=== PATIENT | female | born 1965 | race Caucasian/White ===

== ENCOUNTER → 2016-02-26 | Outpatient (REF) | payer OTHER ==
[~2016-02-26] MED LIST: /WARF25TA OR; ACET65TA OR; AMBI10TA PO; ASPI81TA83 PO; ATOR40TA PO; CALC500T49 OR; EFFE150C PO; GLUC850T PO; HYDR25TA6 PO; KLON0.5T PO; LISI20TA5 PO; MECL25CH PO; MELOPOW; PERC5TAB8 OR; PERC7.5T8 PO; SIMV40TA2 PO; TRAZ100T4 PO; VITAMIN D50000 UNT OR; Vicodin 5/500 PO; ZETI10TA PO
[2016-02-26 19:48] LABS: BASO % 0.3 % (0.0-1.0); EOS # 0.1 K/mm3 (0.0-0.50); EOS % 1.1 % (0.0-3.0); LARGE UNSTAINED CELL # 0.2 K/mm3 (0.0-0.4); LARGE UNSTAINED CELL % 1.7 % (0.0-4.0); LYMPH # 1.7 K/mm3 (1.5-4.5); LYMPH % 12.9 % (24.0-44.0); MEAN CORPUSCULAR HEMOGLOBIN 29.3 pg (27.0-33.0); MEAN CORPUSCULAR HGB CONC 31.8 g/dl (32.0-36.5); MONO # 0.7 K/mm3 (0.0-0.8); MONO % 5.5 % (0.0-5.0); NEUTROPHILS # 10.3 K/mm3 (1.8-7.7); NEUTROPHILS % 78.6 % (36.0-66.0); PLATELET COUNT, AUTOMATED 422 k/mm3 (150-450); RED CELL DISTRIBUTION WIDTH 14.3 % (11.5-14.5); WHITE BLOOD COUNT 13.1 K/mm3 (4.0-10.0)
[2016-02-26 20:09] LABS: ANION GAP 9 MEQ/L (8-16); BLOOD UREA NITROGEN 24 MG/DL (7-18); CARBON DIOXIDE LEVEL 30 MEQ/L (21-32); CHLORIDE LEVEL 106 MEQ/L (98-107); CREATININE FOR GFR 0.81 MG/DL (0.55-1.02); GLOMERULAR FILTRATION RATE > 60.0 (>51); GLUCOSE, FASTING 90 MG/DL (70-105); POTASSIUM SERUM 4.4 MEQ/L (3.5-5.1); SODIUM LEVEL 145 MEQ/L (136-145)
== END | disposition home or self-care (01) ==
LOC: M SFHCADAM 13:28
PROVIDERS: ATTEND Physician Assistant Medical
DX: R93.8 Abnormal findings on diagnostic imaging of other specified body structures (principal)

== ENCOUNTER → 2016-03-19 | Outpatient (CLI) | payer OTHER ==
[~2016-03-19] MED LIST changes: +ISOVUE-370 76% 100ML VIAL (Q9967) As Ordered ONE
--- NOTE | 2016-03-20 04:40 | REP ---
Clinical: Abnormal opacity on recent chest x-ray. Comparison: Chest x-ray dated 02/14/2016. Technique: Axial contrast enhanced images from the thoracic inlet to the upper abdomen using 100 ml Isovue 370 intravenous contrast material with coronal and sagittal re-formations. Findings: The lung mark are essentially well-aerated and symmetric. The abnormality identified in the left lower lobe on recent chest x-ray conforms to a subtle irregular area of opacity with subtle linear extensions in the lingula measures roughly 2 cm maximal diameter and most likely represents a small area of focal chronic scarring. However active process cannot definitively be excluded. Mild chronic interstitial changes noted bilaterally without further consolidation, nodule or mass lesion. No pleural effusion/reaction or pneumothorax. Tracheobronchial tree is patent. No mediastinal, hilar, or axillary adenopathy. Heart/pericardium and thoracic aorta are relatively normal. Mild atherosclerotic changes to the coronary arteries identified. Surrounding musculoskeletal structures demonstrate age-related changes. Limited evaluation of the upper abdomen demonstrates normal bilateral adrenal glands along with suspected right parapelvic cysts and cholelithiasis. Impression: 1. Subtle area of opacity in the lingula conforming to the abnormality on recent chest x-ray likely represents focal scarring. However active process cannot definitively be excluded and 3-month initial followup examination may be warranted. 2. Cholelithiasis. Signed by Wesley Prescott MD 03/20/2016 04:31 A
== END ==
LOC: M RAD 15:34
PROVIDERS: ATTEND Physician Assistant Medical
DX: R93.8 Abnormal findings on diagnostic imaging of other specified body structures (principal)

== ENCOUNTER → 2016-05-31 | Outpatient (REF) | payer OTHER ==
[~2016-05-31] MED LIST changes: -ISOVUE-370 76% 100ML VIAL (Q9967) As Ordered ONE
[2016-05-31 13:54] LABS: ALBUMIN 3.4 GM/DL (3.2-5.2); ALBUMIN/GLOBULIN RATIO 1.13 (1.00-1.93); ALKALINE PHOSPHATASE 100 U/L (45-117); ALT/SGPT 33 U/L (12-78); ANION GAP 7 MEQ/L (8-16); AST/SGOT 14 U/L (15-37); BASO % 0.3 % (0.0-1.0); BILIRUBIN,TOTAL 0.3 MG/DL (0.2-1.0); BLOOD UREA NITROGEN 17 MG/DL (7-18); CALCIUM LEVEL 9.1 MG/DL (8.5-10.1); CARBON DIOXIDE LEVEL 30 MEQ/L (21-32); CHLORIDE LEVEL 106 MEQ/L (98-107); CHOLESTEROL LEVEL 226 MG/DL (<200); CREATININE FOR GFR 0.64 MG/DL (0.55-1.02); EOS # 0.2 K/mm3 (0.0-0.50); EOS % 1.6 % (0.0-3.0); GLOMERULAR FILTRATION RATE > 60.0 (>51); GLUCOSE, FASTING 90 MG/DL (70-105); LARGE UNSTAINED CELL # 0.1 K/mm3 (0.0-0.4); LARGE UNSTAINED CELL % 1.1 % (0.0-4.0); LYMPH # 1.5 K/mm3 (1.5-4.5); LYMPH % 13.9 % (24.0-44.0); MEAN CORPUSCULAR HEMOGLOBIN 28.4 pg (27.0-33.0); MEAN CORPUSCULAR HGB CONC 31.4 g/dl (32.0-36.5); MEAN CORPUSCULAR VOLUME 90.5 fl (80.0-96.0); MONO # 0.6 K/mm3 (0.0-0.8); MONO % 5.3 % (0.0-5.0); NEUTROPHILS # 8.3 K/mm3 (1.8-7.7); NEUTROPHILS % 77.8 % (36.0-66.0); PLATELET COUNT, AUTOMATED 345 k/mm3 (150-450); POTASSIUM SERUM 4.6 MEQ/L (3.5-5.1); RED CELL DISTRIBUTION WIDTH 14.9 % (11.5-14.5); SODIUM LEVEL 143 MEQ/L (136-145); TOTAL PROTEIN 6.4 GM/DL (6.4-8.2); TRIGLYCERIDES LEVEL 233 MG/DL (<150); WHITE BLOOD COUNT 10.6 K/mm3 (4.0-10.0)
== END ==
LOC: M SFHCADAM 09:19
PROVIDERS: ATTEND Physician Assistant Medical
DX: E78.4 Other hyperlipidemia (principal); E11.9 Type 2 diabetes mellitus without complications; F32.9 Major depressive disorder, single episode, unspecified; E55.9 Vitamin D deficiency, unspecified

== ENCOUNTER → 2016-09-05 | Outpatient (REF) | payer OTHER ==
[~2016-09-05] MED LIST changes: +ASPI1TAB15 PO; -ATOR40TA PO; +ATOR40TA75 PO; +ATOR80TA59 PO; +GABA-282 PO; +HYDR-3719 PO; +HYDR12.55 PO; +HYDR12CA PO; +LISI-538 PO; +MECL1CHW2 PO; -MECL25CH PO; +METF500T13 PO; +RANI150T PO; +SERT-138 PO; +TRAZ-136 PO; -TRAZ100T4 PO; +TRAZ10TA PO; +TRAZ1TAB14 PO; +VENL75CA2 PO
[2016-09-05 14:32] LABS: INR 1.04
== END ==
LOC: M LABDRAW1 13:20
PROVIDERS: ATTEND Physical Medicine & Rehabilitation
DX: Z01.812 Encounter for preprocedural laboratory examination (principal)

== ENCOUNTER 2016-11-01 22:00 | Inpatient (IN) | payer OTHER ==
[~2016-11-01] VITALS: Ht 152.4 cm; Wt 88.6 kg
[~2016-11-01 22:00] MED LIST changes: -HYDR-3719 PO; -HYDR12.55 PO; -TRAZ10TA PO; -VENL75CA2 PO
[2016-11-01 22:52] LABS: MEAN CORPUSCULAR HEMOGLOBIN 30.1 pg (27.0-33.0); MEAN CORPUSCULAR HGB CONC 33.5 g/dl (32.0-36.5); RED CELL DISTRIBUTION WIDTH 15.4 % (11.5-14.5); WHITE BLOOD COUNT 10.2 K/mm3 (4.0-10.0)
[2016-11-01] MEDS ORDERED: HYDR-3719 PO (23:00)
[2016-11-01 23:19] LABS: METHADONE URINE NEGATIVE (NEGATIVE)
[2016-11-01 23:22] LABS: ALBUMIN 3.5 GM/DL (3.2-5.2); ALBUMIN/GLOBULIN RATIO 1.06 (1.00-1.93); ALKALINE PHOSPHATASE 96 U/L (45-117); ALT/SGPT 43 U/L (12-78); ANION GAP 9 MEQ/L (8-16); AST/SGOT 17 U/L (15-37); BILIRUBIN,DIRECT 0.1 MG/DL (0.0-0.2); BILIRUBIN,TOTAL 0.4 MG/DL (0.2-1.0); BLOOD UREA NITROGEN 20 MG/DL (7-18); CALCIUM LEVEL 9.6 MG/DL (8.5-10.1); CARBON DIOXIDE LEVEL 26 MEQ/L (21-32); CHLORIDE LEVEL 109 MEQ/L (98-107); CREATININE FOR GFR 0.77 MG/DL (0.55-1.02); GLOMERULAR FILTRATION RATE > 60.0 (>51); GLUCOSE, FASTING 111 MG/DL (70-105); SODIUM LEVEL 144 MEQ/L (136-145); TOTAL PROTEIN 6.8 GM/DL (6.4-8.2)
[2016-11-02 04:04] VITALS: BP 130/86
[2016-11-02] MEDS ORDERED: HYDR12.55 PO (04:31)
[2016-11-02] MEDS ORDERED: ANEXSIA, NORCO 7.5MG/325MG TABLET(HYDROCODONE/APAP) PO PRN (06:00)
[2016-11-02] MEDS ORDERED: MOM 30ML SUSPENSION UDC PO PRN (06:00)
[2016-11-02] MEDS ORDERED: MAALOX 30 ML SUSP *UDC PO PRN (06:00)
[2016-11-02] MEDS: LISINOPRIL 20 MG TAB PO SCH (08:47)
[2016-11-02] MEDS: hydroCHLOROthiazide 12.5 MG CAPSULE PO SCH (08:47)
[2016-11-02] MEDS: metFORMIN (GLUCOPHAGE) 500 MG TAB PO SCH ×2 (08:47→17:05)
[2016-11-02] MEDS: GABAPENTIN 300 MG CAP PO SCH ×3 (08:47→20:49)
[2016-11-02] MEDS: ASPIRIN 81 MG ENTERIC TAB PO SCH (08:47)
[2016-11-02] MEDS: raNITIdine SYRUP 150 MG/10 ML UDC GT SCH ×2 (08:50→20:48)
[2016-11-02 18:00] VITALS: BP 141/85
--- NOTE | 2016-11-02 20:02 | MHHPE ---
DATE OF ADMISSION: 11/02/2016 CHIEF COMPLAINT: Feels depressed. SUBJECTIVE: She is 51 years old. She is single and lives on her own. Sayrosita has a long history of depression and anxiety, used to see Dr. Cotton for several years, stopped seeing him when she lost her job a couple of years ago, and since then had seen a therapist, Gracy Steve, has not seen her for a month, was seeing her every week, sees primary care, who prescribes her medicine, mostly to help with her depression. She is on Zoloft 200 mg at night. She is also on clonazepam at 0.5 mg twice a day as needed for anxiety. Sayrosita was on Zoloft in the past, several years ago, and then switched to Effexor, which she felt was effective for a few years, lost efficacy, and then reverted to Zoloft again. Sayrosita was on 100 mg and she raised it herself several months ago as she was feeling increasingly depressed, says her primary care agreed with it. She says has had several years of struggling with depression and anxiety, and that matters worsened after she lost her job a couple of years ago, has been feeling increasingly depressed more late, and has felt lonely. Says her zfpjea-vl-izt has been helpful, is aware of her concerns. She was talking to her shake table operator as well on a regular basis and yesterday the shake table operator became more concerned and worried when he had called, the patient did not apparently take his call. He called the ytseht-kr-por, the tqdohi-as-hwc went to check on the patient and found her crying. She was apparently curled up on the floor of her home, indicating she was "done," and suggesting that she was suicidal. Police were contacted. She informed them as well that she was suicidal, though currently denies it. She was quite tearful and indicated has had increasing difficulties. In addition to this, has stated that if it was not for her sikhism beliefs would have killed herself. Says one of the ways she had thought of doing that was running her car in a closed garage. She says that she has been feeling increasingly lonely and that has been a burden. Says her son used to live with her, he got and he moved out earlier this year. They do not get along well, though she sees his daughter, her granddaughter when the granddaughter visits every other weekend. The son is going through a custody ge with the daughter's mother. This tends to bother the patient as well. Says does not get along with her mother, the patient's own mother, who is local, and by the sounds of it the patient suggests that she is quite judgmental and wound consider the patient being in the hospital a failure. She had lost her job of 23 years a couple of years ago. 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 Since then says misses the cook who was there, who she was friends with and has periodic contact. In addition to this had to put her cat down after 16 years of so within the last year. Says spoke with Ms. Steve earlier in the week, and that she was to set up an appointment over the phone with her. PAST PSYCHIATRIC HISTORY: As indicated above. Denies any inpatient hospitalizations or suicide attempts. Had been seeing Dr. Cotton for several years, says stopped seeing him when she lost her job. Has been seeing her primary care. Has been on Zoloft 200 mg for the last several months, Zoloft for the last couple of years or so. Has used Effexor with good effect in the past and then it lost its efficacy. SUBSTANCE HISTORY: Denies any. MEDICAL HISTORY: Has back pain, says has applied for disability on that basis. It has given her considerable difficulties. Also has a history of hypertension. Has high cholesterol as well. SOCIAL HISTORY: Lives on her own. Has a son. Used to work for a long time and then lost her job, as stated previously. Has supports, but is quite concerned about family and judgment by the family, particularly her mother, whom she says would consider her a failure being depressed and in here. Says trusts her gcofws-cq-eem. She also indicates she got along quite well with her ex sginsren-hu-zuz and missed her when the son and the tvfzodoa-mm-oub were . Says the qkbldndr-qh-cni contacted her this summer, was depressed, had been drinking, had a gun with her and was suicidal. The patient intervened and the gloeiwlx-td-ojm was admitted to the hospital. The patient says that the vuqxyimy-uy-ruy was upset with her for the intervention. The patient does not regret it. No symptoms consistent with hypomania, roosevelt, or psychosis. MENTAL STATUS EXAMINATION: She is fairly neat, is in hospital clothes. She displays fair to good eye contact. No abnormal movements noted. No agitation. No psychomotor retardation. Mood is depressed. She is quite tearful at times. She denies any active suicidal thoughts or intents. No homicidal ideas of intents. No evidence of any psychosis. Intellect is average. No fluctuation of consciousness. Cognition is grossly intact. Judgment and insight are compromised. ASSESSMENT: 1. Major depressive disorder, recurrent and severe, without psychotic features. 2. Rule out major depressive disorder, single episode, severe without psychotic features. 3. Unspecified anxiety disorder. 4. Loss of job, financial difficulties. 5. Difficult relationship with mother and son. 6. Sense of being lonely. 7. Back pain. 8. Loss of job at a college. She is significantly depressed and very likely minimizes it. Has been suicidal, now denies that. Has several psychosocial stressors, has also suffered several losses. Her functioning has deteriorated and this has compromised her ability to maintain her safety. PLAN: She is admitted to the inpatient psychiatric unit, placed on relevant precautions. We will look at obtaining collateral information. She is hesitant in us talking to family members, but says will consider that we talk with her nmbcbu-bb-xgo. She will receive a medicine consultation if indicated. She will be encouraged to participate in activities on the unit. I would suggest continuing Zoloft at 200 mg daily for now, but that it is either augmented or that Zoloft is replaced by another antidepressant, Effexor being an option since she has tolerated it well and that it helped her in the past. The patient has given written request for discharge. We will address this and I have informed her that at this point I would suggest that she is hospitalized and it may entail us going to court to retain her. I am concerned enough, given her struggles with depression, its intensity, the several losses she has had, the sense of hopelessness and worthlessness, as well as guilt and recent suicidal thoughts, all pointing to the necessity of her being in the hospital to maintain her safety. The procedure regarding addressing her request is also discussed and staff will assist her with that. The patient, I would anticipate, is to stay here for the next 5 to 7 days. She is aware that collateral information will be useful in obtaining a more complete picture. VITAL SIGNS: Blood pressure 141/85, pulse 116, temperature 98.7. INVESTIGATIONS: Complete blood count essentially within normal limits except for a slight rise in white blood cells at 10.2. Metabolic profile essentially within normal limits, TSH is 0.326, which is slightly below normal. Urine toxicology essentially is negative. The assessment took 60 minutes.
[2016-11-02] MEDS: traZODone 50 MG TAB PO PRN (20:49)
[2016-11-02] MEDS: SERTRALINE 100 MG TAB PO SCH (20:49)
[2016-11-02] MEDS: ATORVASTATIN 20 MG TAB PO SCH (20:49)
[2016-11-03 06:44] VITALS: BP 119/61
[2016-11-03] MEDS: metFORMIN (GLUCOPHAGE) 500 MG TAB PO SCH ×2 (07:35→17:01)
[2016-11-03] MEDS: GABAPENTIN 300 MG CAP PO SCH ×3 (07:35→20:29)
[2016-11-03] MEDS: hydroCHLOROthiazide 12.5 MG CAPSULE PO SCH (07:35)
[2016-11-03] MEDS: ASPIRIN 81 MG ENTERIC TAB PO SCH (07:35)
[2016-11-03] MEDS: LISINOPRIL 20 MG TAB PO SCH (07:36)
[2016-11-03] MEDS: raNITIdine SYRUP 150 MG/10 ML UDC GT SCH ×2 (07:36→20:29)
[2016-11-03 12:00] VITALS: BP 131/84
[2016-11-03] MEDS: VENLAFAXINE **XR** 37.5 MG CAPSULE PO SCH (15:38)
--- NOTE | 2016-11-03 17:16 | MHIPN ---
DATE: 11/03/2016 CHIEF COMPLAINT: Says feels a bit better. SUBJECTIVE: Seen for followup. Indicates feels depressed, anxious, but somewhat less intense than she did yesterday. Suggests yesterday was difficult, but she acknowledges that she has been having considerable difficulties, says spoke with her sister as well, plans to contact her ebbprh-ry-yvw later. Says remains concerned about how her family will social service manager her, but less so. Has also spoken with her therapist, Ms. Chandler, who is not fully available at present, due to various matters. The patient says she slept reasonably well, and in fact, suggests has felt better since she has not been using hydrocodone, which she has in the past on a regular basis. Says has not used any Klonopin, has used it only as needed occasionally. Says her "head feels clearer" and that she feels less in pain overall. MENTAL STATUS EXAMINATION: She is neat, she is cooperative. There is no agitation, no psychomotor retardation. Mood depressed. Affect is restricted but reactive, broader than yesterday. Denies active thoughts of harming herself. No homicidal ideas or intents. No evidence of any psychosis. Her cognition is grossly intact. Judgment and insight remain compromised, but somewhat improved. ASSESSMENT: Major depressive disorder, recurrent, severe. Feels depressed, minimizes it, but more amenable to discussion regarding her depression, and the difficulties she has been through. PLAN: Various options are discussed, and would suggest cross-tapering Effexor with the Zoloft. She started on Effexor XR at 37.5 mg daily; this is to be titrated upward, and then the Zoloft decreased and eliminated slowly. The rationale for doing so is discussed, as were the drawbacks. It is encouraging she is more aware of her difficulties. Says sister in law plans to visit later today, and I would suggest that staff talk with her to obtain collateral information. We reiterated the request that she has made for discharge. She says she would consider rescinding it. She will be seeing the treatment team, the assigned psychiatrist tomorrow, and the discharge planners as well. She agrees with the plan. She is to be encouraged to participate in activities in the unit. VITAL SIGNS: Blood pressure 119.61, pulse 71, temperature 97.7. I would not suggest resuming narcotic pain medication. MTDD
[2016-11-03 18:00] VITALS: BP 116/64
[2016-11-03] MEDS: SERTRALINE 100 MG TAB PO SCH (20:29)
[2016-11-03] MEDS: ATORVASTATIN 20 MG TAB PO SCH (20:29)
[2016-11-03] MEDS: traZODone 50 MG TAB PO PRN (20:29)
--- NOTE | 2016-11-04 03:39 | HPE ---
DATE OF ADMISSION: 11/02/2016 PRIMARY CARE PROVIDER: Javi Collins [facility]. HISTORY OF PRESENT ILLNESS: Please refer to psychiatric history and evaluation for further details on this admission. This examination and history is intended for medical issues, which may need treatment, followup or consult on this 51-year-old female. ALLERGIES: SULFA and CODEINE. SOCIAL HISTORY: She lives alone. She does not drink alcohol. She does not smoke cigarettes. She does not use recreational drugs. PAST MEDICAL HISTORY: 1. Hypertension. 2. Hypercholesterolemia. 3. Depression. 4. Arthritis. 5. Non-insulin dependent diabetes type 2. PAST SURGICAL HISTORY: 1. (C) section. 2. Surgery abscessed tooth. 3. Total left hip replacement. 4. Left lumpectomy for cancer with radiation. FAMILY HISTORY: Paternal grandmother had cancer. Maternal grandfather had lung cancer. Maternal grandmother of aneurysm. LABORATORY STUDIES: WBC 10.2, hemoglobin 14.8, hematocrit 44.3, platelets 305. Sodium 144, potassium 4.0, chloride 109, CO2 26, BUN and creatinine 20 and 0.77. TSH was slightly low at 0.326. Thyroid profile has been ordered. Toxicology screen was negative. HOME MEDICATIONS: - aspirin 81 mg by mouth daily - atorvastatin 80 mg by mouth nightly - gabapentin 300 mg by mouth three times a day - hydrochlorothiazide 12.5 mg by mouth daily - lisinopril 20 mg by mouth daily - metformin 500 mg by mouth twice a day with meals - ranitidine 150 mg by mouth twice a day - sertraline 200 mg by mouth nightly - trazodone 150 mg by mouth nightly as needed for sleep - hydrocodone 10/325 one by mouth every 4 hours as needed for pain, maximum daily dose six REVIEW OF SYSTEMS: 10-system review was done, other than chronic pain, she had no current acute complaints. She has chronic disability and has applied for disability on that basis. PHYSICAL EXAMINATION: 51-year-old obese female in no acute distress. Height 60 inches, weight 88.63 kg, body mass index (BMI) 38.2. Blood pressure 116/64, pulse 75, respirations 16, temperature 98.2. Patient is alert and oriented times three. Pupils equal and react to light. Extraocular muscles intact. Cornea and sclerae clear. Conjunctivae were normal. No facial asymmetry. Pharynx, tongue and gums pink and moist. Tongue is midline. Neck is supple without lymphadenopathy. No thyromegaly, no goiter. Carotids 2+ without bruit. Chest clear to auscultation without wheeze or retraction. Heart is regular. Abdomen is benign. Bowel sounds positive. Genitourinary/rectal: Not done. Extremities show equal strength, full range of motion. No cyanosis, clubbing or edema. Peripheral pulses equal and palpable bilaterally. Skin is warm and dry. Cranial nerves III-XII grossly intact. IMPRESSION/PLAN: 1. Psychiatric plan per psychiatry. 2. Hypercholesterolemia. Continue atorvastatin. 3. Hypertension. Continue lisinopril. 4. Slightly low thyroid-stimulating hormone (TSH). Thyroid profile will be drawn in the morning. No other acute medical issues.
[2016-11-04 06:34] VITALS: BP 139/80
[2016-11-04] MEDS: metFORMIN (GLUCOPHAGE) 500 MG TAB PO SCH ×2 (07:15→17:09)
[2016-11-04 07:40] LABS: THYROXINE (T4) 7.4 UG/DL (4.5-12.0)
[2016-11-04] MEDS ORDERED: INFLUENZA QUADRIVALENT PF VACCINE 0.5ML SYRINGE (90686) IM ONE (09:00)
[2016-11-04] MEDS: LISINOPRIL 20 MG TAB PO SCH (09:02)
[2016-11-04] MEDS: ASPIRIN 81 MG ENTERIC TAB PO SCH (09:02)
[2016-11-04] MEDS: VENLAFAXINE **XR** 37.5 MG CAPSULE PO SCH (09:02)
[2016-11-04] MEDS: raNITIdine SYRUP 150 MG/10 ML UDC GT SCH (09:02)
[2016-11-04] MEDS: GABAPENTIN 300 MG CAP PO SCH ×3 (09:02→20:54)
[2016-11-04] MEDS: hydroCHLOROthiazide 12.5 MG CAPSULE PO SCH (09:02)
[2016-11-04] MEDS: ACETAMINOPHEN TAB 650MG DOSE (2X325MG) PO PRN (09:12)
[2016-11-04] MEDS ORDERED: traZODone 100 MG TAB PO PRN (13:00)
[2016-11-04] MEDS ORDERED: VENLAFAXINE **XR** 37.5 MG CAPSULE PO ONE (13:15)
--- NOTE | 2016-11-04 15:05 | IPN ---
DATE: 11/04/2016 Ms. Mccracken met with myself and the staff. She discussed her disappointments with her loss of jobs and her financial situation. She is concerned that she risks losing her home and car and that her cat recently . She had numerous complaints and concerns about her admission on the weekend, but began to be able to joke with us. We discussed her medications, and I have increased her venlafaxine to 75 mg a day. She still continues on Zoloft 200 mg. She states that she is presently not suicidal but there are concerns about her suicidal statements and concerns about her depression not improving resulted in this admission. Eye contact was good. No disturbance of sleep or thought process. She had no loose associations. No abnormal psychotic thoughts. Her judgment and insight were fair. She was fully oriented with a full fund of knowledge. Mood seemed neutral. Affect is was neutral. Plan to increase the patient's venlafaxine and provide whatever social support and referrals that we can make. DIAGNOSIS: Major depressive illness.
[2016-11-04 18:00] VITALS: BP 138/83
[2016-11-04] MEDS: FAMOTIDINE 20 MG TAB PO SCH (20:54)
[2016-11-04] MEDS: SERTRALINE 100 MG TAB PO SCH (20:55)
[2016-11-04] MEDS: ATORVASTATIN 20 MG TAB PO SCH (20:55)
[2016-11-05 06:23] VITALS: BP 134/86
[2016-11-05] MEDS: metFORMIN (GLUCOPHAGE) 500 MG TAB PO SCH ×2 (07:00→17:01)
[2016-11-05] MEDS: LISINOPRIL 20 MG TAB PO SCH (08:29)
[2016-11-05] MEDS: GABAPENTIN 300 MG CAP PO SCH ×3 (08:29→21:04)
[2016-11-05] MEDS: ACETAMINOPHEN TAB 650MG DOSE (2X325MG) PO PRN (08:30)
[2016-11-05] MEDS: ASPIRIN 81 MG ENTERIC TAB PO SCH (08:30)
[2016-11-05] MEDS: FAMOTIDINE 20 MG TAB PO SCH ×2 (08:30→21:04)
[2016-11-05] MEDS: hydroCHLOROthiazide 12.5 MG CAPSULE PO SCH (08:30)
[2016-11-05] MEDS ORDERED: VENLAFAXINE **XR** 75MG CAPSULE PO SCH (09:00)
--- NOTE | 2016-11-05 09:47 | MHIPN ---
DATE: 11/05/2016 I met with Ms Mccracken this morning. She is ambivalent because she wants to go home to her hindu activities, etc. She seems to not be concerned about her financial situation, however, she is agreeing to Dr. Carter's plan to wean her off of Zoloft and increase her Effexor. Today, I will decrease her Zoloft to 100 mg and increase her Effexor to 150. In addition, the patient complains of poor sleep regardless of the higher dose of trazodone that she has been on in the past of 150 mL. I am changing it to Remeron 15 mm salt tablet at night and discontinuing her trazodone. MENTAL STATUS EXAMINATION: Patient's mood is labile and she is ambivalent about her choices of being discharged or staying. She continues to complain that the mental health unit is not helpful to her. No disturbances of speech. Though process is normal. No loose associations. No psychotic thoughts. Judgment and insight are considered poor. Orientation is full in three spheres. No difficulties or recent or remote memory. Affect is pleasant. Fund of knowledge is normal. Language is normal. IMPRESSION: Major depressive illness. DISCHARGE PLAN: As per social work.
[2016-11-05 18:00] VITALS: BP 122/78
[2016-11-05] MEDS ORDERED: SERTRALINE 100 MG TAB PO SCH (21:00)
[2016-11-05] MEDS: MIRTAZAPINE 15 MG ***SOLTAB PO SCH (21:04)
[2016-11-05] MEDS: ATORVASTATIN 20 MG TAB PO SCH (21:04)
[2016-11-06 06:53] VITALS: BP 122/70
[2016-11-06] MEDS: VENLAFAXINE **XR** 75MG CAPSULE PO SCH (08:24)
[2016-11-06] MEDS: GABAPENTIN 300 MG CAP PO SCH ×3 (08:24→20:32)
[2016-11-06] MEDS: hydroCHLOROthiazide 12.5 MG CAPSULE PO SCH (08:24)
[2016-11-06] MEDS: ASPIRIN 81 MG ENTERIC TAB PO SCH (08:24)
[2016-11-06] MEDS: FAMOTIDINE 20 MG TAB PO SCH ×2 (08:24→20:32)
[2016-11-06] MEDS: LISINOPRIL 20 MG TAB PO SCH (08:25)
[2016-11-06] MEDS: metFORMIN (GLUCOPHAGE) 500 MG TAB PO SCH ×2 (08:25→17:13)
[2016-11-06] MEDS: ACETAMINOPHEN TAB 650MG DOSE (2X325MG) PO PRN (08:28)
--- NOTE | 2016-11-06 15:16 | MHIPN ---
DATE: 11/06/2016 Ms. Mccracken is feeling improved. She states her Remeron which was tried for sleep did not seem to work any significantly better than her previous medication, but she was willing to continue trying it. She had no difficulty with the alteration of the increase of Effexor and the decrease in Zoloft. She will be reduced to Zoloft 50 mg daily with her Effexor at 150 mg daily. 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 She is going to work on her housing and disability. MENTAL STATUS EXAMINATION: Speech normal. Thought process is normal. Mood is less labile. There is no loose associations. No abnormal psychotic thoughts. Judgment and insight are good. The patient is fully oriented. No disturbance of recent and remote memory. No disturbance of attention and concentration. No disturbance of language. She has a full fund of knowledge. Affect is pleasant and mood is improved. DIAGNOSIS: Major depressive illness. Numerous financial stressors. Discharge may be planned for Friday.
[2016-11-06 18:28] VITALS: BP 107/58
[2016-11-06] MEDS: MIRTAZAPINE 15 MG ***SOLTAB PO SCH (20:32)
[2016-11-06] MEDS: ATORVASTATIN 20 MG TAB PO SCH (20:33)
[2016-11-06] MEDS ORDERED: SERTRALINE HCL 50 MG TAB PO SCH (21:00)
[2016-11-07 07:05] VITALS: BP 142/79
[2016-11-07] MEDS: hydroCHLOROthiazide 12.5 MG CAPSULE PO SCH (08:09)
[2016-11-07] MEDS: VENLAFAXINE **XR** 75MG CAPSULE PO SCH (08:09)
[2016-11-07] MEDS: LISINOPRIL 20 MG TAB PO SCH (08:09)
[2016-11-07] MEDS: ASPIRIN 81 MG ENTERIC TAB PO SCH (08:09)
[2016-11-07] MEDS: GABAPENTIN 300 MG CAP PO SCH ×3 (08:09→20:46)
[2016-11-07] MEDS: metFORMIN (GLUCOPHAGE) 500 MG TAB PO SCH ×2 (08:09→17:00)
[2016-11-07] MEDS: FAMOTIDINE 20 MG TAB PO SCH ×2 (08:09→20:46)
[2016-11-07] MEDS: ACETAMINOPHEN TAB 650MG DOSE (2X325MG) PO PRN (08:09)
--- NOTE | 2016-11-07 13:52 | MHIPN ---
DATE: 11/07/2016 I met with Ms. Mccracken this morning. We discussed her medications. I have discontinued her Zoloft. She continues on Effexor 150 mg by mouth daily. Outpatient planning is beginning and will be accomplished and the patient will be discharged tomorrow. MENTAL STATUS: Speech is normal. Thought process is normal. No loose associations. No abnormal or psychotic thoughts. Judgment and insight improved. The patient is fully oriented. No disturbance of recent or remote memory. Attention and concentration are adequate. No disturbance of language. Full fund of knowledge. Mood is good. Affect is bright. Discharge diagnosis will be major depression. The patient is presently on Effexor 150 mg by mouth daily. Discharge planned for tomorrow.
[2016-11-07 18:00] VITALS: BP 124/84
[2016-11-07] MEDS: ATORVASTATIN 20 MG TAB PO SCH (20:46)
[2016-11-07] MEDS ORDERED: traZODone 100 MG TAB PO SCH (21:00)
[2016-11-08 06:28] VITALS: BP 103/66
[2016-11-08] MEDS ORDERED: VENL75CA2 PO ×2 (08:08→08:17)
[2016-11-08] MEDS ORDERED: TRAZ10TA PO (08:08)
[2016-11-08] MEDS: hydroCHLOROthiazide 12.5 MG CAPSULE PO SCH (09:24)
[2016-11-08] MEDS: FAMOTIDINE 20 MG TAB PO SCH (09:25)
[2016-11-08] MEDS: VENLAFAXINE **XR** 75MG CAPSULE PO SCH (09:25)
[2016-11-08] MEDS: GABAPENTIN 300 MG CAP PO SCH (09:25)
[2016-11-08] MEDS: ASPIRIN 81 MG ENTERIC TAB PO SCH (09:25)
[2016-11-08] MEDS: metFORMIN (GLUCOPHAGE) 500 MG TAB PO SCH (09:25)
[2016-11-08 09:27] VITALS: BP 136/89
[2016-11-08] MEDS: LISINOPRIL 20 MG TAB PO SCH (09:27)
[2016-11-08] MEDS: ACETAMINOPHEN TAB 650MG DOSE (2X325MG) PO PRN (09:29)
--- NOTE | 2016-11-08 11:14 | DSES ---
DATE OF ADMISSION: 11/02/2016 DATE OF DISCHARGE: 11/08/2016 Tahira Mccracken is 51 years old, single, living on her own. She has a long history of depression and anxiety. She has been seeing Dr. Cotton for several years. She stopped seeing him when she lost her job a couple of years ago and has seen therapist Gracy Chandler who she has not seen for a month. She is presently on Zoloft 200 mg at night, Klonopin 0.5 twice a day for anxiety. She switched to Effexor which she felt was ineffective and reverted back to Zoloft. She was on 100 mg of Zoloft and raised herself several months ago to 200 mg. Patient states she has had several years of struggling with depression and anxiety and it worsened after her losing her job. She was talking to her keno terminal operator on a regular basis but the keno terminal operator became concerned when patient did not call her back and she was found crying. She was also found curled up on the floor stating that she was "done". And suggested she was suicidal. LABORATORY EXAMINATION: CBC was unremarkable. Serum chemistries showed a slightly high BUN of 20 and a slightly low TSH which normalized from 0.326 to 0.402. Toxicology screen was positive for alcohol at 0.003. Patient was admitted by Dr. Carter and seen by Alie Vidal, nurse practitioner with a past medical history noted of hypertension, hypercholesterolemia and arthritis. Past surgical history of section, abscess tooth, total left hip replacement and a left lumpectomy for cancer with radiation. HOME MEDICATIONS: Include: - aspirin 81 mg - atorvastatin 80 mg by mouth - gabapentin 300 mg three times a day - hydrochlorothiazide 12.5 mg - lisinopril 20 mg - metformin 500 mg twice a day - ranitidine 150 mg twice a day No other acute medical issues were noted. COURSE ON THE UNIT: Patient was changed to Effexor with a higher dose than patient had previously taken. Zoloft was lowered and discontinued. Patient's mood improved and followup plans were made. DISCHARGE MENTAL STATUS: Speech was normal. No disturbance of thought process. No loose associations. No psychotic thoughts. Judgment and insight improved. Fully oriented. Recent and remote memory intact. Attention and concentration were good. Language was normal with full fund of knowledge. Mood was good. Affect was bright. Patient was discharged to followup care as per discharge planning. Patient denies suicidal ideation repetitively. DISCHARGE DIAGNOSIS: Major depressive illness. Numerous stressors. NICOLAS
== END 2016-11-08 12:30 | disposition home or self-care (01) | DRG 754 ==
LOC: M ED 22:00 → M ED INP 11-02 03:18 → M PSY 11-02 04:06
PROVIDERS: ADMIT Psychiatry & Neurology Psychiatry; ATTEND Psychiatry & Neurology Child & Adolescent Psychiatry
DX: F32.9 Major depressive disorder, single episode, unspecified (principal); E11.9 Type 2 diabetes mellitus without complications; I10 Essential (primary) hypertension; E78.00 Pure hypercholesterolemia, unspecified; R94.6 Abnormal results of thyroid function studies; Z79.82 Long term (current) use of aspirin; Z79.84 Long term (current) use of oral hypoglycemic drugs; Z96.642 Presence of left artificial hip joint; Z79.899 Other long term (current) drug therapy

== ENCOUNTER → 2017-01-02 | Outpatient (CLI) | payer OTHER ==
[~2017-01-02] MED LIST changes: +HYDR-3719 PO; +HYDR12.55 PO; +TRAZ10TA PO; +VENL75CA2 PO
[2017-01-02 06:54] LABS: BASO % 0.4 % (0.0-1.0); EOS # 0.2 10^3/uL (0.0-0.50); EOS % 1.6 % (0.0-3.0); LYMPH # 2.2 10^3/uL (1.5-4.5); LYMPH % 20.5 % (24.0-44.0); MEAN CORPUSCULAR HEMOGLOBIN 29.8 pg (27.0-33.0); MEAN CORPUSCULAR VOLUME 92.9 fl (80.0-96.0); MONO # 0.8 10^3/uL (0.0-0.8); MONO % 7.2 % (0.0-5.0); NEUTROPHILS # 7.6 10^3/uL (1.8-7.7); NEUTROPHILS % 69.3 % (36.0-66.0); PLATELET COUNT, AUTOMATED 332 10^3/uL (150-450); RED CELL DISTRIBUTION WIDTH 15.5 % (11.5-14.5)
[2017-01-02 07:13] LABS: ALBUMIN 3.4 GM/DL (3.2-5.2); ALBUMIN/GLOBULIN RATIO 1.06 (1.00-1.93); ALKALINE PHOSPHATASE 96 U/L (45-117); ALT/SGPT 40 U/L (12-78); ANION GAP 8 MEQ/L (8-16); AST/SGOT 15 U/L (7-37); BILIRUBIN,TOTAL 0.4 MG/DL (0.2-1.0); BLOOD UREA NITROGEN 20 MG/DL (7-18); CALCIUM LEVEL 9.2 MG/DL (8.5-10.1); CARBON DIOXIDE LEVEL 27 MEQ/L (21-32); CHLORIDE LEVEL 106 MEQ/L (98-107); CHOLESTEROL LEVEL 206 MG/DL (<200); CREATININE FOR GFR 0.76 MG/DL (0.55-1.02); GLOMERULAR FILTRATION RATE > 60.0 (>51); GLUCOSE, FASTING 99 MG/DL (70-105); POTASSIUM SERUM 4.3 MEQ/L (3.5-5.1); SODIUM LEVEL 141 MEQ/L (136-145); TOTAL PROTEIN 6.6 GM/DL (6.4-8.2); TRIGLYCERIDES LEVEL 220 MG/DL (<150)
== END ==
LOC: M LAB 06:15
PROVIDERS: ATTEND Physician Assistant Medical
DX: E78.4 Other hyperlipidemia (principal); E11.9 Type 2 diabetes mellitus without complications; E55.9 Vitamin D deficiency, unspecified

== ENCOUNTER → 2017-01-06 | Outpatient (REF) | payer OTHER ==
[2017-01-06 13:34] LABS: REASON FOR REVIEW COMPREHENSIVE REVIEW
== END ==
LOC: M SFHCADAM 11:07
PROVIDERS: ATTEND Physician Assistant Medical
DX: D72.829 Elevated white blood cell count, unspecified (principal)

== ENCOUNTER → 2017-04-07 | Outpatient (CLI) | payer OTHER ==
[2017-04-07 13:16] LABS: ALBUMIN 3.4 GM/DL (3.2-5.2); ALKALINE PHOSPHATASE 84 U/L (45-117); ALT/SGPT 48 U/L (12-78); ANION GAP 9 MEQ/L (8-16); AST/SGOT 33 U/L (7-37); BILIRUBIN,TOTAL 0.3 MG/DL (0.2-1.0); BLOOD UREA NITROGEN 25 MG/DL (7-18); CARBON DIOXIDE LEVEL 25 MEQ/L (21-32); CHLORIDE LEVEL 109 MEQ/L (98-107); GLOMERULAR FILTRATION RATE > 60.0 (>51); GLUCOSE, FASTING 93 MG/DL (70-100); SODIUM LEVEL 143 MEQ/L (136-145); TOTAL PROTEIN 6.8 GM/DL (6.4-8.2)
== END ==
LOC: M LAB 11:45
DX: D72.829 Elevated white blood cell count, unspecified (principal)
CPT/HCPCS: 80053

== ENCOUNTER → 2017-04-10 | Outpatient (CLI) | payer OTHER ==
[~2017-04-10] MED LIST changes: -/WARF25TA OR; -ACET65TA OR; -AMBI10TA PO; -ASPI1TAB15 PO; -ASPI81TA83 PO; -ATOR40TA75 PO; -ATOR80TA59 PO; -CALC500T49 OR; -EFFE150C PO; -GABA-282 PO; -GLUC850T PO; -HYDR-3719 PO; -HYDR12.55 PO; -HYDR12CA PO; -HYDR25TA6 PO; +ISOVUE-370 76% 100ML VIAL (Q9967) As Ordered; -KLON0.5T PO; -LISI-538 PO; -LISI20TA5 PO; -MECL1CHW2 PO; -MELOPOW; -METF500T13 PO; -PERC5TAB8 OR; -PERC7.5T8 PO; -RANI150T PO; -SERT-138 PO; -SIMV40TA2 PO; -TRAZ-136 PO; -TRAZ10TA PO; -TRAZ1TAB14 PO; -VENL75CA2 PO; -VITAMIN D50000 UNT OR; -Vicodin 5/500 PO; -ZETI10TA PO
== END ==
LOC: M RAD 16:42
DX: R93.8 Abnormal findings on diagnostic imaging of other specified body structures (principal)
CPT/HCPCS: Q9967

== ENCOUNTER → 2017-06-24 | Outpatient (REF) | payer OTHER ==
[2017-06-24 10:48] LABS: BASO % 0.3 % (0.0-1.0); EOS # 0.1 10^3/uL (0.0-0.50); EOS % 0.7 % (0.0-3.0); HEMATOCRIT 44.7 % (36.0-47.0); HEMOGLOBIN 14.2 g/dl (12.0-15.5); IMMATURE GRANULOCYTE % 1.7 % (0-3.0); LYMPH # 1.7 10^3/uL (1.5-4.5); LYMPH % 16.9 % (24.0-44.0); MEAN CORPUSCULAR HEMOGLOBIN 30.2 pg (27.0-33.0); MEAN CORPUSCULAR HGB CONC 31.8 g/dl (32.0-36.5); MEAN CORPUSCULAR VOLUME 95.1 fl (80.0-96.0); MONO # 0.7 10^3/uL (0.0-0.8); MONO % 7.1 % (0.0-5.0); NEUTROPHILS # 7.5 10^3/uL (1.8-7.7); NEUTROPHILS % 73.3 % (36.0-66.0); PLATELET COUNT, AUTOMATED 303 10^3/uL (150-450); RED CELL DISTRIBUTION WIDTH 15.2 % (11.5-14.5); WHITE BLOOD COUNT 10.2 10^3/uL (4.0-10.0)
[2017-06-24 10:52] LABS: SLIDE REVIEW Report; SOURCE PERIPHERAL SMEAR
[2017-06-24 11:23] LABS: ALBUMIN 3.5 GM/DL (3.2-5.2); ALBUMIN/GLOBULIN RATIO 1.13 (1.00-1.93); ALKALINE PHOSPHATASE 83 U/L (45-117); ALT/SGPT 45 U/L (12-78); ANION GAP 6 MEQ/L (8-16); AST/SGOT 19 U/L (7-37); BILIRUBIN,TOTAL 0.4 MG/DL (0.2-1.0); BLOOD UREA NITROGEN 22 MG/DL (7-18); CALCIUM LEVEL 9.2 MG/DL (8.5-10.1); CARBON DIOXIDE LEVEL 29 MEQ/L (21-32); CHLORIDE LEVEL 109 MEQ/L (98-107); CHOLESTEROL LEVEL 205 MG/DL (<200); CHOLESTEROL RISK RATIO 4.659 (<5); CREATININE FOR GFR 0.72 MG/DL (0.55-1.30); FREE T4 0.87 NG/DL (0.76-1.46); GLOMERULAR FILTRATION RATE > 60.0 (>51); GLUCOSE, FASTING 106 MG/DL (70-100); HDL CHOLESTEROL 44 MG/DL (>40); LDL CHOLESTEROL 106.2 MG/DL (<100); NON-HDL-C 161 MG/DL; POTASSIUM SERUM 4.4 MEQ/L (3.5-5.1); SODIUM LEVEL 144 MEQ/L (136-145); TOTAL PROTEIN 6.6 GM/DL (6.4-8.2); TRIGLYCERIDES LEVEL 274 MG/DL (<150)
[2017-06-24 11:31] LABS: MALB URINE SIEMENS 42.4 MG/L; MAU/CREAT RATIO 30.9 MCG/MG (0.0-30.0)
[2017-06-24 11:36] LABS: TOTAL 25(OH) VITAMIN D 23.8 NG/ML (30.0-100.0)
[2017-06-24 14:47] LABS: ESTIMATED AVERAGE GLUCOSE 137 MG/DL (60-110); HEMOGLOBIN A1c 6.4 %
== END ==
LOC: M LABDRAW1 09:47
DX: E11.9 Type 2 diabetes mellitus without complications (principal); D72.829 Elevated white blood cell count, unspecified; E78.4 Other hyperlipidemia
CPT/HCPCS: 80053

== ENCOUNTER → 2017-06-24 | Outpatient (REF) | payer OTHER | LOC: M LABDRAW1 09:49 | DX: Z51.81 Encounter for therapeutic drug level monitoring (principal); Z79.899 Other long term (current) drug therapy | CPT/HCPCS: 84443 ==

== ENCOUNTER 2017-07-18 14:04 | Emergency (ER) | payer OTHER ==
[2017-07-18 17:07] LABS: BASO # 0.1 10^3/uL (0.0-0.2); BASO % 0.4 % (0.0-1.0); EOS # 0.1 10^3/uL (0.0-0.50); EOS % 0.4 % (0.0-3.0); HEMATOCRIT 46.1 % (36.0-47.0); HEMOGLOBIN 14.9 g/dl (12.0-15.5); IMMATURE GRANULOCYTE % 1.2 % (0-3.0); LYMPH # 1.7 10^3/uL (1.5-4.5); LYMPH % 13.1 % (24.0-44.0); MEAN CORPUSCULAR HEMOGLOBIN 30.8 pg (27.0-33.0); MEAN CORPUSCULAR HGB CONC 32.3 g/dl (32.0-36.5); MEAN CORPUSCULAR VOLUME 95.2 fl (80.0-96.0); MONO # 0.9 10^3/uL (0.0-0.8); MONO % 6.8 % (0.0-5.0); NEUTROPHILS # 10.2 10^3/uL (1.8-7.7); NEUTROPHILS % 78.1 % (36.0-66.0); PLATELET COUNT, AUTOMATED 350 10^3/uL (150-450); RED BLOOD COUNT 4.84 10^6/uL (4.00-5.40); RED CELL DISTRIBUTION WIDTH 15.2 % (11.5-14.5)
[2017-07-18 17:20] LABS: INR 1.02; PROTHROMBIN TIME 13.5 SECONDS (12.4-14.5)
[2017-07-18 17:20] LABS: LACTIC ACID SEPSIS PROTOCOL 1.6 MMOL/L (0.4-2.0)
[2017-07-18 17:21] LABS: ALBUMIN 3.6 GM/DL (3.2-5.2); ALBUMIN/GLOBULIN RATIO 1.03 (1.00-1.93); ALKALINE PHOSPHATASE 103 U/L (45-117); ALT/SGPT 62 U/L (12-78); ANION GAP 5 MEQ/L (8-16); AST/SGOT 25 U/L (7-37); BILIRUBIN,DIRECT < 0.1 MG/DL (0.0-0.2); BILIRUBIN,TOTAL 0.3 MG/DL (0.2-1.0); BLOOD UREA NITROGEN 20 MG/DL (7-18); C REACTIVE PROTEIN QUANTITATIV < 0.30 MG/DL (0.00-0.30); CALCIUM LEVEL 9.2 MG/DL (8.5-10.1); CARBON DIOXIDE LEVEL 28 MEQ/L (21-32); CHLORIDE LEVEL 110 MEQ/L (98-107); CREATININE FOR GFR 0.67 MG/DL (0.55-1.30); GLOMERULAR FILTRATION RATE > 60.0 (>51); GLUCOSE, FASTING 99 MG/DL (70-100); PARTIAL THROMBOPLASTIN TIME 24.9 SECONDS (26.8-37.9); SODIUM LEVEL 143 MEQ/L (136-145); TOTAL PROTEIN 7.1 GM/DL (6.4-8.2)
[2017-07-18 17:23] LABS: D-DIMER QUANT 301.4 ng/ml (<500)
[2017-07-18 17:40] LABS: ERYTHROCYTE SEDIMENTATION RATE 4 mm/hr (0-30)
== END 2017-07-18 18:10 | disposition home or self-care (01) ==
LOC: M ED 14:04
DX: L03.116 Cellulitis of left lower limb (principal); M71.22 Synovial cyst of popliteal space [Baker], left knee; E11.9 Type 2 diabetes mellitus without complications; I10 Essential (primary) hypertension; E78.5 Hyperlipidemia, unspecified; F41.9 Anxiety disorder, unspecified; F33.9 Major depressive disorder, recurrent, unspecified; F42.9 Obsessive-compulsive disorder, unspecified; Z79.82 Long term (current) use of aspirin
CPT/HCPCS: 93971

== ENCOUNTER → 2017-12-16 | Outpatient (REF) | payer OTHER ==
[2017-12-16 20:03] LABS: ESTIMATED AVERAGE GLUCOSE 126 MG/DL (60-110)
== END ==
LOC: M SFHCADAM 14:39
DX: Z01.818 Encounter for other preprocedural examination (principal); E11.9 Type 2 diabetes mellitus without complications

== ENCOUNTER → 2018-03-27 | Outpatient (REF) | payer OTHER ==
[~2018-03-27] MED LIST changes: +/WARF25TA OR; +ACET65TA OR; +AMBI10TA PO; +ASPI1TAB15 PO; +ASPI81TA83 PO; +ATOR40TA75 PO; +ATOR80TA59 PO; +BACL10TA2 PO; +BIOT50004 PO; +BUPR1TAB52 PO; +CALC500T49 OR; +CALCTAB75 PO; +CARI1TAB7 PO; +EFFE150C PO; +FISH7.5C PO; +GABA-843 PO; +GLUC850T PO; +HYDR-3719 PO; +HYDR12.55 PO; +HYDR12CA PO; +HYDR25TA6 PO; -ISOVUE-370 76% 100ML VIAL (Q9967) As Ordered; +KEFL500C17 PO; +KLON0.5T PO; +LISI-538 PO; +LISI20TA5 PO; +MECL1CHW2 PO; +MELOPOW; +METF500T13 PO; +NALT50TA4 PO; +PERC5TAB8 OR; +PERC7.5T8 PO; +RANI150T PO; +SERT-138 PO; +SIMV40TA2 PO; +TIZA2TA PO; +TIZANIDINE; +TRAZ-163 PO; +TRAZ10TA PO; +TRAZ1TAB14 PO; +TRUL10IN SC; +VENL150C43 PO; +VENL75CA2 PO; +VITA500T3 PO; +VITAMIN D50000 UNT OR; +Vicodin 5/500 PO; +ZETI10TA PO
[2018-03-27 11:13] LABS: HEMOGLOBIN A1c 6.3 %
[2018-03-27 12:30] LABS: ALBUMIN 3.2 GM/DL (3.2-5.2); ALT/SGPT 48 U/L (12-78); BILIRUBIN,TOTAL 0.3 MG/DL (0.2-1.0); BLOOD UREA NITROGEN 15 MG/DL (7-18); CALCIUM LEVEL 8.7 MG/DL (8.5-10.1); CARBON DIOXIDE LEVEL 29 MEQ/L (21-32); CHLORIDE LEVEL 108 MEQ/L (98-107); CHOLESTEROL LEVEL 211 MG/DL (<200); CHOLESTEROL RISK RATIO 4.688 (<5); FREE T4 0.87 NG/DL (0.76-1.46); GLOMERULAR FILTRATION RATE > 60.0 (>51); GLUCOSE, FASTING 91 MG/DL (70-100); HDL CHOLESTEROL 45 MG/DL (>40); LDL CHOLESTEROL 116 MG/DL (<100); NON-HDL-C 166 MG/DL; POTASSIUM SERUM 4.5 MEQ/L (3.5-5.1); SODIUM LEVEL 144 MEQ/L (136-145); THYROID STIMULATING HORMONE 0.307 uIU/ML (0.358-3.740); TOTAL PROTEIN 6.1 GM/DL (6.4-8.2); TRIGLYCERIDES LEVEL 251 MG/DL (<150)
[2018-03-27 13:17] LABS: PTH INTACT 50.1 PG/ML (18.5-88.0); TOTAL 25(OH) VITAMIN D 27.6 NG/ML (30.0-100.0)
== END ==
LOC: M SFHCPLAZ 08:23
PROVIDERS: ATTEND Physician Assistant Medical
DX: F32.9 Major depressive disorder, single episode, unspecified (principal); E55.9 Vitamin D deficiency, unspecified; E78.49 Other hyperlipidemia; E11.9 Type 2 diabetes mellitus without complications

== ENCOUNTER 2018-04-03 11:23 | Day surgery (SDC) | payer OTHER ==
[~2018-04-03] VITALS: Ht 149.9 cm; Wt 88.0 kg
[2018-04-03] MEDS ORDERED: PROPOFOL 200 MG/20 ML VIAL As Ordered ONE ×2 (13:10→14:06)
[2018-04-03] MEDS ORDERED: LIDOCAINE 2% INJ 100 MG/5 ML SDV (FOR ANES.) As Ordered ONE (13:10)
--- NOTE | 2018-04-03 13:45 | ROOR ---
Patient Name: Tahira Mccracken Procedure Date: 04/03/2018 1:32 PM Date of : 1965 Age: 52 Room: [facility] Gender: Female Note Status: Finalized Procedure: Upper GI endoscopy Indications: Heartburn Providers: Rikki PEREZ MD Referring MD: Sravanthi CORDON Requesting Provider: Medicines: Monitored Anesthesia Care Complications: No immediate complications. Procedure: Pre-Anesthesia Assessment: - The heart rate, respiratory rate, oxygen saturations, blood pressure, adequacy of pulmonary ventilation, and response to care were monitored throughout the procedure. The Endoscope was introduced through the mouth, and advanced to the second part of duodenum. The upper GI endoscopy was accomplished without difficulty. The patient tolerated the procedure well. Findings: A small hiatal hernia was present. The esophagus was normal. The stomach was normal. The examined duodenum was normal. Impression: - Small hiatal hernia. - Normal esophagus. - Normal stomach. - Normal examined duodenum. - No specimens collected. Recommendation: - Observe patient's clinical course. - Follow an antireflux regimen. Rikki Perez MD Rikki PEREZ MD 04/03/2018 1:44:36 PM This report has been signed electronically. Number of Addenda: 0 Note Initiated On: 04/03/2018 1:32 PM Estimated Blood Loss: Estimated blood loss: none.
--- NOTE | 2018-04-03 14:34 | ROOR ---
Patient Name: Tahira Mccracken Procedure Date: 04/03/2018 1:32 PM Date of : 1965 Age: 52 Room: [facility] Gender: Female Note Status: Finalized Procedure: Colonoscopy Indications: Positive fecal immunochemical test Providers: Rikki PEREZ MD Referring MD: Sravanthi CORDON Requesting Provider: Medicines: Monitored Anesthesia Care Complications: No immediate complications. Procedure: Pre-Anesthesia Assessment: - The heart rate, respiratory rate, oxygen saturations, blood pressure, adequacy of pulmonary ventilation, and response to care were monitored throughout the procedure. The Colonoscope was introduced through the anus and advanced to the cecum, identified by appendiceal orifice and ileocecal valve. The colonoscopy was performed without difficulty. The patient tolerated the procedure well. The quality of the bowel preparation was good. Findings: The perianal and digital rectal examinations were normal. Four pedunculated and sessile polyps were found in the hepatic flexure, ascending colon and cecum. The polyps were 6 to 12 mm in size. These polyps were removed with a hot snare. Resection and retrieval were complete. To prevent bleeding after the polypectomy, one hemostatic clip was successfully placed. There was no bleeding at the end of the procedure. One ligature was successfully placed. Three pedunculated and sessile polyps were found in the descending colon and splenic flexure. The polyps were 5 to 8 mm in size. These polyps were removed with a hot snare. Resection and retrieval were complete. To prevent bleeding after the polypectomy, one hemostatic clip was successfully placed. Two sessile polyps were found in the sigmoid colon. The polyps were 6 to 8 mm in size. These polyps were removed with a hot snare. Resection and retrieval were complete. Internal hemorrhoids were found during retroflexion. The hemorrhoids were large. Multiple medium-mouthed diverticula were found in the sigmoid colon. Impression: - Four 6 to 12 mm polyps at the hepatic flexure, in the ascending colon and in the cecum, removed with a hot snare. Resected and retrieved. Clip was placed. Ligated. - Three 5 to 8 mm polyps in the descending colon and at the splenic flexure, removed with a hot snare. Resected and retrieved. Clip was placed. - Two 6 to 8 mm polyps in the sigmoid colon, removed with a hot snare. Resected and retrieved. - Internal hemorrhoids. - Mild diverticulosis in the sigmoid colon. - The exam was otherwise normal to the cecum. Recommendation: - No ibuprofen, naproxen, or other non-steroidal anti-inflammatory drugs for 10 days after polyp removal. - Repeat colonoscopy in 1 year for surveillance of multiple polyps. - Repeat colonoscopy in 1 year for surveillance after piecemeal polypectomy. - Telephone endoscopist for pathology results in 2 weeks. Rikki Perez MD Rikki PEREZ MD 04/03/2018 2:33:52 PM This report has been signed electronically. Number of Addenda: 0 Note Initiated On: 04/03/2018 1:32 PM Estimated Blood Loss: Estimated blood loss: none.
[2018-04-03 15:02] VITALS: BP 149/88
== END 2018-04-03 15:10 | disposition home or self-care (01) ==
LOC: M OPP 11:23
PROVIDERS: ATTEND Internal Medicine Gastroenterology
DX: R19.5 Other fecal abnormalities (principal); R12 Heartburn; K63.5 Polyp of colon; D12.0 Benign neoplasm of cecum; D12.2 Benign neoplasm of ascending colon; D12.3 Benign neoplasm of transverse colon; K64.8 Other hemorrhoids; K57.30 Diverticulosis of large intestine without perforation or abscess without bleeding; K44.9 Diaphragmatic hernia without obstruction or gangrene; E11.9 Type 2 diabetes mellitus without complications; I10 Essential (primary) hypertension; F32.9 Major depressive disorder, single episode, unspecified; F41.9 Anxiety disorder, unspecified; E78.00 Pure hypercholesterolemia, unspecified; Z85.3 Personal history of malignant neoplasm of breast; Z80.3 Family history of malignant neoplasm of breast; Z80.1 Family history of malignant neoplasm of trachea, bronchus and lung; Z83.3 Family history of diabetes mellitus; Z88.2 Allergy status to sulfonamides; Z88.5 Allergy status to narcotic agent; Z79.82 Long term (current) use of aspirin; Z79.84 Long term (current) use of oral hypoglycemic drugs; Z79.899 Other long term (current) drug therapy

== ENCOUNTER → 2018-05-18 | Outpatient (REF) | payer OTHER ==
[~2018-05-18] MED LIST changes: -/WARF25TA OR; +COUM1TAB18 OR; +MECL1CHW PO; -MECL1CHW2 PO
== END ==
LOC: M SFHCPLAZ 10:09
PROVIDERS: ATTEND Family Medicine
DX: N63.10 Unspecified lump in the right breast, unspecified quadrant (principal)

== ENCOUNTER → 2018-05-28 | Outpatient (REF) | payer OTHER | LOC: M SFHCPLAZ 09:45 | PROVIDERS: ATTEND Family Medicine | DX: M53.3 Sacrococcygeal disorders, not elsewhere classified (principal) ==

== ENCOUNTER → 2018-09-21 | Outpatient (REF) | payer OTHER ==
[~2018-09-21] MED LIST changes: +CYAN500T8 PO; -VITA500T3 PO
[2018-09-21 17:49] LABS: BASO # 0.1 10^3/uL (0.0-0.2); BASO % 0.5 % (0.0-1.0); EOS % 0.2 % (0.0-3.0); HEMATOCRIT 49.6 % (36.0-47.0); HEMOGLOBIN 15.7 g/dl (12.0-15.5); LYMPH # 1.9 10^3/uL (1.5-4.5); LYMPH % 12.9 % (24.0-44.0); MEAN CORPUSCULAR HEMOGLOBIN 29.6 pg (27.0-33.0); MEAN CORPUSCULAR HGB CONC 31.7 g/dl (32.0-36.5); MEAN CORPUSCULAR VOLUME 93.4 fl (80.0-96.0); MONO # 0.9 10^3/uL (0.0-0.8); NEUTROPHILS # 11.3 10^3/uL (1.8-7.7); NEUTROPHILS % 76.5 % (36.0-66.0); PLATELET COUNT, AUTOMATED 333 10^3/uL (150-450); RED BLOOD COUNT 5.31 10^6/uL (4.00-5.40); WHITE BLOOD COUNT 14.8 10^3/uL (4.0-10.0)
[2018-09-21 17:57] LABS: ALBUMIN 3.4 GM/DL (3.2-5.2); ALT/SGPT 40 U/L (12-78); BILIRUBIN,TOTAL 0.3 MG/DL (0.2-1.0); BLOOD UREA NITROGEN 19 MG/DL (7-18); CALCIUM LEVEL 9.9 MG/DL (8.5-10.1); CARBON DIOXIDE LEVEL 29 MEQ/L (21-32); CHLORIDE LEVEL 109 MEQ/L (98-107); CREATININE FOR GFR 0.77 MG/DL (0.55-1.30); GLOMERULAR FILTRATION RATE > 60.0 (>51); GLUCOSE, FASTING 109 MG/DL (70-100); POTASSIUM SERUM 4.1 MEQ/L (3.5-5.1); SODIUM LEVEL 144 MEQ/L (136-145); TOTAL PROTEIN 6.8 GM/DL (6.4-8.2)
== END ==
LOC: M SFHCPLAZ 15:35
PROVIDERS: ATTEND Family Medicine
DX: Z01.818 Encounter for other preprocedural examination (principal)

== ENCOUNTER → 2018-11-26 | Outpatient (REF) | payer OTHER ==
[2018-11-26 12:44] LABS: ALBUMIN 3.1 GM/DL (3.2-5.2); ALT/SGPT 39 U/L (12-78); BILIRUBIN,TOTAL 0.5 MG/DL (0.2-1.0); BLOOD UREA NITROGEN 17 MG/DL (7-18); CALCIUM LEVEL 8.8 MG/DL (8.5-10.1); CARBON DIOXIDE LEVEL 31 MEQ/L (21-32); CHLORIDE LEVEL 109 MEQ/L (98-107); CHOLESTEROL LEVEL 178 MG/DL (<200); CREATININE FOR GFR 0.71 MG/DL (0.55-1.30); GLOMERULAR FILTRATION RATE > 60.0 (>51); GLUCOSE, FASTING 92 MG/DL (70-100); HDL CHOLESTEROL 40 MG/DL (>40); LDL CHOLESTEROL 95 MG/DL (<100); NON-HDL-C 138 MG/DL; POTASSIUM SERUM 4.3 MEQ/L (3.5-5.1); SODIUM LEVEL 146 MEQ/L (136-145); THYROID STIMULATING HORMONE 0.301 uIU/ML (0.358-3.740); TOTAL 25(OH) VITAMIN D 27.3 NG/ML (30.0-100.0); TOTAL PROTEIN 5.9 GM/DL (6.4-8.2); TRIGLYCERIDES LEVEL 213 MG/DL (<150)
[2018-11-26 12:51] LABS: HEMOGLOBIN A1c 6.3 %
[2018-11-26 13:10] LABS: MALB URINE SIEMENS 27.3 MG/L; MAU/CREAT RATIO 13.3 MCG/MG (0.0-30.0)
== END ==
LOC: M SFHCPLAZ 08:43
PROVIDERS: ATTEND Nurse Practitioner Family
DX: E11.9 Type 2 diabetes mellitus without complications (principal); E78.2 Mixed hyperlipidemia; E55.9 Vitamin D deficiency, unspecified

== ENCOUNTER → 2018-12-09 | Outpatient (REF) | payer OTHER ==
[2018-12-09 18:36] LABS: BLOOD UREA NITROGEN 13 MG/DL (7-18); C REACTIVE PROTEIN QUANTITATIV < 0.30 MG/DL (0.00-0.30); CREATININE FOR GFR 0.76 MG/DL (0.55-1.30); GLOMERULAR FILTRATION RATE > 60.0 (>51); RHEUMATOID FACTOR QUANT < 10.0 IU/ML (<15.0)
[2018-12-16 00:07] LABS: ANTI DOUBLE STRAND-DNA AB 8 IU/mL (0-9); ANTINUCLEAR ANTIBODIES DIRECT Positive (Negative); HLA-B27 Negative (.); RNP ANTIBODIES <0.2 AI (0.0-0.9); SJOGREN'S ANTI SS-A <0.2 AI (0.0-0.9); SJOGREN'S ANTI SS-B 1.3 AI (0.0-0.9); SMITH ANTIBODIES <0.2 AI (0.0-0.9)
== END ==
LOC: M LABDRAW1 14:39
PROVIDERS: ATTEND Physician Assistant
DX: M41.26 Other idiopathic scoliosis, lumbar region (principal)

== ENCOUNTER → 2018-12-28 | Outpatient (REF) | payer MEDICARE, OTHER ==
[2018-12-28 17:20] LABS: THYROID STIMULATING HORMONE 0.248 uIU/ML (0.358-3.740)
[2018-12-28 18:38] LABS: THYROID PEROXIDASE ANTIBODY < 28.0 U/ML (<60.0)
[2018-12-28 18:39] LABS: TOTAL T3 56.5 NG/DL (60.0-181.0)
[2019-01-03 15:05] LABS: FREE T4 BY DIALYSIS DIRECT 0.91 ng/dL (.); THYROID STIMULATING IMMUNOGLOB <0.10 IU/L (0.00-0.55)
== END ==
LOC: M LAB REF 16:30
PROVIDERS: ATTEND Nurse Practitioner Family
DX: R94.6 Abnormal results of thyroid function studies (principal)

== ENCOUNTER → 2019-04-09 | Outpatient (REF) | payer OTHER, MEDICARE ==
[~2019-04-09] MED LIST changes: -TRAZ-163 PO; +TRAZ-257 PO; -TRAZ10TA PO; +TRAZ1TAB12 PO
[2019-04-09 15:46] LABS: ALBUMIN 3.3 GM/DL (3.2-5.2); ALT/SGPT 49 U/L (12-78); BILIRUBIN,TOTAL 0.5 MG/DL (0.2-1.0); BLOOD UREA NITROGEN 17 MG/DL (7-18); CARBON DIOXIDE LEVEL 31 MEQ/L (21-32); CHLORIDE LEVEL 109 MEQ/L (98-107); CREATININE FOR GFR 0.71 MG/DL (0.55-1.30); GLOMERULAR FILTRATION RATE > 60.0 (>51); GLUCOSE, FASTING 108 MG/DL (70-100); POTASSIUM SERUM 4.5 MEQ/L (3.5-5.1); SODIUM LEVEL 144 MEQ/L (136-145); TOTAL PROTEIN 6.2 GM/DL (6.4-8.2)
[2019-04-09 15:54] LABS: HEMOGLOBIN A1c 6.8 %
[2019-04-09 16:13] LABS: MALB URINE SIEMENS 76.8 MG/L; MAU/CREAT RATIO 59.5 MCG/MG (0.0-30.0)
== END ==
LOC: M LABDRAW1 12:33
PROVIDERS: ATTEND Nurse Practitioner Family
DX: E11.9 Type 2 diabetes mellitus without complications (principal); E55.9 Vitamin D deficiency, unspecified

== ENCOUNTER → 2019-04-09 | Outpatient (REF) | payer MEDICARE ==
[2019-04-09 15:36] LABS: C REACTIVE PROTEIN QUANTITATIV < 0.30 MG/DL (0.00-0.30); COMPLEMENT C3 138 MG/DL (90-180); COMPLEMENT C4 32 MG/DL (10-40); RHEUMATOID FACTOR QUANT < 10.0 IU/ML (<15.0)
[2019-04-13 10:56] LABS: DRVV SCREEN 34.1 SEC
[2019-04-13 11:02] LABS: PTT LUPUS TYPE ANTICOAG SCREEN 0.9 (0-1.2)
[2019-04-14 00:09] LABS: ANTI DOUBLE STRAND-DNA AB 8 IU/mL (0-9); ANTI DS-DNA AB Negative (Negative); ANTINUCLEAR ANTIBODIES DIRECT Positive (Negative); BETA-2 GLYCOPROTEIN I ABY IGA <9 (0-25); BETA-2 GLYCOPROTEIN I ABY IGG <9 (0-20); BETA-2 GLYCOPROTEIN I ABY IGM <9 (0-32); CARDIOLIPIN IGA ANTIBODY <9 APL U/mL (0-11); CARDIOLIPIN IGG ANTIBODY <9 GPL U/mL (0-14); CARDIOLIPIN IGM ANTIBODY 9 MPL U/mL (0-12); CYCLIC CITRULLINATED PEPTIDE 8 units (0-19); RNP ANTIBODIES <0.2 AI (0.0-0.9); SJOGREN'S ANTI SS-A <0.2 AI (0.0-0.9); SJOGREN'S ANTI SS-B 1.1 AI (0.0-0.9); SMITH ANTIBODIES <0.2 AI (0.0-0.9)
== END ==
LOC: M LABDRAW1 12:35
PROVIDERS: ATTEND Internal Medicine
DX: R76.8 Other specified abnormal immunological findings in serum (principal); R23.1 Pallor; M25.50 Pain in unspecified joint; E27.8 Other specified disorders of adrenal gland; E11.9 Type 2 diabetes mellitus without complications; E55.9 Vitamin D deficiency, unspecified

== ENCOUNTER → 2019-04-09 | Outpatient (REF) | payer OTHER, MEDICARE | LOC: M LABDRAW1 12:38 | PROVIDERS: ATTEND Internal Medicine Endocrinology, Diabetes & Metabolism | DX: E27.8 Other specified disorders of adrenal gland (principal) ==

== ENCOUNTER → 2019-05-03 | Outpatient (REF) | payer MEDICARE ==
[2019-05-05 12:57] LABS: CREATININE, URINE 62.5 MG/DL
== END ==
LOC: M LAB REF 11:35
PROVIDERS: ATTEND Internal Medicine Endocrinology, Diabetes & Metabolism
DX: E27.8 Other specified disorders of adrenal gland (principal)

== ENCOUNTER → 2019-05-05 | Outpatient (CLI) | payer MEDICARE | LOC: M LAB 08:44 | PROVIDERS: ATTEND Internal Medicine Endocrinology, Diabetes & Metabolism | DX: E27.8 Other specified disorders of adrenal gland (principal) ==

== ENCOUNTER → 2019-05-21 | Outpatient (REF) | payer MEDICARE | LOC: M LAB REF 13:24 | PROVIDERS: ATTEND Internal Medicine Endocrinology, Diabetes & Metabolism | DX: R94.6 Abnormal results of thyroid function studies (principal) ==

== ENCOUNTER → 2019-05-23 | Outpatient (REF) | payer MEDICARE | LOC: M LAB REF 13:26 | PROVIDERS: ATTEND Internal Medicine Endocrinology, Diabetes & Metabolism | DX: R94.6 Abnormal results of thyroid function studies (principal) ==

== ENCOUNTER → 2019-06-10 | Outpatient (CLI) | payer MEDICARE | LOC: M LAB 08:34 | PROVIDERS: ATTEND Internal Medicine Endocrinology, Diabetes & Metabolism | DX: E27.8 Other specified disorders of adrenal gland (principal) ==

== ENCOUNTER → 2019-06-15 | Outpatient (CLI) | payer MEDICARE | LOC: M WUC 09:28 | PROVIDERS: ATTEND Internal Medicine Endocrinology, Diabetes & Metabolism | DX: E27.8 Other specified disorders of adrenal gland (principal) ==

== ENCOUNTER → 2019-06-23 | Outpatient (CLI) | payer MEDICARE ==
[2019-06-23 13:51] LABS: BLOOD UREA NITROGEN 27 MG/DL (7-18); CALCIUM LEVEL 9.2 MG/DL (8.5-10.1); CARBON DIOXIDE LEVEL 30 MEQ/L (21-32); CHLORIDE LEVEL 106 MEQ/L (98-107); CREATININE FOR GFR 0.77 MG/DL (0.55-1.30); GLOMERULAR FILTRATION RATE > 60.0 (>51); GLUCOSE, FASTING 91 MG/DL (70-100); POTASSIUM SERUM 4.7 MEQ/L (3.5-5.1); SODIUM LEVEL 142 MEQ/L (136-145)
== END ==
LOC: M LAB 12:58
PROVIDERS: ATTEND Internal Medicine Endocrinology, Diabetes & Metabolism
DX: E27.8 Other specified disorders of adrenal gland (principal)

== ENCOUNTER → 2019-08-11 | Outpatient (CLI) | payer MEDICARE ==
[2019-08-11 10:25] LABS: FREE T4 0.96 NG/DL (0.76-1.46); TOTAL 25(OH) VITAMIN D 44.3 NG/ML (30.0-100.0)
[2019-08-11 10:26] LABS: FOLLICLE STIMULATING HORMONE 0.5 mIU/mL; LUTEINIZING HORMONE < 0.1 mIU/mL; PROLACTIN 10.2 NG/ML
[2019-08-18 17:07] LABS: ADRENOCORTICOTROPHIC HORMONE < 1.5 pg/mL (7.2-63.3)
== END ==
LOC: M LAB 08:16
PROVIDERS: ATTEND Internal Medicine
DX: E24.9 Cushing's syndrome, unspecified (principal); Z91.89 Other specified personal risk factors, not elsewhere classified; Z79.82 Long term (current) use of aspirin; Z79.899 Other long term (current) drug therapy; Z79.84 Long term (current) use of oral hypoglycemic drugs

== ENCOUNTER → 2019-08-11 | Outpatient (CLI) | payer MEDICARE ==
[2019-08-11 10:16] LABS: TOTAL PROTEIN,RANDOM URINE 39.7 MG/DL (0.0-12.0)
[2019-08-12 21:07] LABS: ANA (HEP2) Negative (.); SSA SJOGRENS A <0.2 AI (0.0-0.9)
== END ==
LOC: M LAB 08:12
PROVIDERS: ATTEND Internal Medicine
DX: R80.9 Proteinuria, unspecified (principal); R76.8 Other specified abnormal immunological findings in serum; Z79.899 Other long term (current) drug therapy

== ENCOUNTER 2019-10-19 10:42 | Emergency (ER) | payer MEDICARE ==
[~2019-10-19] VITALS: Ht 144.8 cm; Wt 84.1 kg
--- NOTE | 2019-10-19 12:38 | REPVR ---
PROCEDURE INFORMATION: Exam: US Duplex Lower Extremity Veins, Bilateral Exam date and time: 10/19/2019 12:28 PM Age: 53 years old Clinical indication: Pain; Leg, lower; Bilateral; Additional info: Edema, R/O dvt TECHNIQUE: Imaging protocol: Real-time duplex ultrasound of the extremities with 2-D morales scale, color Doppler flow and spectral waveform analysis with image documentation. Complete exam focused on the bilateral lower extremity veins. COMPARISON: US Duplex, Ext,LOWER veins,unilat 07/18/2017 5:07 PM FINDINGS: Right deep veins: No deep venous thrombosis in the visualized right common femoral, profunda femoris, superficial femoral, or popliteal veins. Left deep veins: No deep venous thrombosis in the visualized left common femoral, profunda femoris, superficial femoral, or popliteal veins. Soft tissues: 2.7 x 0.6 x 1.7 cm left popliteal cyst. IMPRESSION: 1. No deep venous thrombosis in the visualized bilateral lower extremities. 2. 2.7 x 0.6 x 1.7 cm left popliteal cyst. Electronically signed by: Rocky Gusman On 10/19/2019 12:37:54 PM
[2019-10-19 14:38] VITALS: BP 140/80
== END 2019-10-19 15:02 | disposition home or self-care (01) ==
LOC: M ED 10:42
DX: M71.22 Synovial cyst of popliteal space [Baker], left knee (principal); R60.0 Localized edema; I10 Essential (primary) hypertension; E78.00 Pure hypercholesterolemia, unspecified; Z85.3 Personal history of malignant neoplasm of breast; E11.9 Type 2 diabetes mellitus without complications; F32.9 Major depressive disorder, single episode, unspecified; F41.9 Anxiety disorder, unspecified; F42.9 Obsessive-compulsive disorder, unspecified; Z79.899 Other long term (current) drug therapy; Z79.84 Long term (current) use of oral hypoglycemic drugs; Z79.82 Long term (current) use of aspirin

== ENCOUNTER → 2019-10-19 | Outpatient (CLI) | payer MEDICARE ==
[~2019-10-19] MED LIST changes: +ASPI-546 PO; -ASPI1TAB15 PO
[2019-10-19 16:43] LABS: BLOOD UREA NITROGEN 13 MG/DL (7-18); CALCIUM LEVEL 9.3 MG/DL (8.5-10.1); CARBON DIOXIDE LEVEL 27 MEQ/L (21-32); CHLORIDE LEVEL 109 MEQ/L (98-107); CREATININE FOR GFR 0.63 MG/DL (0.55-1.30); GLOMERULAR FILTRATION RATE > 60.0 (>51); GLUCOSE, FASTING 87 MG/DL (70-100); POTASSIUM SERUM 3.9 MEQ/L (3.5-5.1); SODIUM LEVEL 144 MEQ/L (136-145)
== END ==
LOC: M LAB 15:41
PROVIDERS: ATTEND Internal Medicine
DX: R79.89 Other specified abnormal findings of blood chemistry (principal)

== ENCOUNTER → 2019-10-21 | Outpatient (REF) | payer MEDICARE | LOC: M LAB REF 11:06 | PROVIDERS: ATTEND Internal Medicine | DX: E32.9 Disease of thymus, unspecified (principal) ==

== ENCOUNTER → 2019-10-22 | Outpatient (CLI) | payer MEDICARE ==
[2019-10-22 09:48] LABS: BLOOD UREA NITROGEN 15 MG/DL (7-18); CARBON DIOXIDE LEVEL 29 MEQ/L (21-32); CHLORIDE LEVEL 109 MEQ/L (98-107); CREATININE FOR GFR 0.54 MG/DL (0.55-1.30); GLOMERULAR FILTRATION RATE > 60.0 (>51); GLUCOSE, FASTING 98 MG/DL (70-100); POTASSIUM SERUM 4.2 MEQ/L (3.5-5.1); SODIUM LEVEL 144 MEQ/L (136-145)
[2019-10-22 11:11] LABS: CORTISOL BASELINE 16.4 UG/DL (4.3-22.4)
== END ==
LOC: M LAB 08:13
PROVIDERS: ATTEND Internal Medicine
DX: E24.9 Cushing's syndrome, unspecified (principal)

== ENCOUNTER → 2019-10-24 | Outpatient (CLI) | payer MEDICARE | LOC: M LABSMTC 09:00 | PROVIDERS: ATTEND Physical Medicine & Rehabilitation | DX: Z20.828 Contact with and (suspected) exposure to other viral communicable diseases (principal) ==

== ENCOUNTER → 2019-10-26 | Outpatient (REF) | payer MEDICARE | LOC: M LAB REF 12:12 | PROVIDERS: ATTEND Internal Medicine | DX: E24.9 Cushing's syndrome, unspecified (principal) ==

== ENCOUNTER → 2019-11-02 | Outpatient (CLI) | payer MEDICARE ==
[2019-11-02 11:12] LABS: BLOOD UREA NITROGEN 18 MG/DL (7-18); CALCIUM LEVEL 9.4 MG/DL (8.5-10.1); CARBON DIOXIDE LEVEL 32 MEQ/L (21-32); CHLORIDE LEVEL 109 MEQ/L (98-107); CREATININE FOR GFR 0.59 MG/DL (0.55-1.30); GLOMERULAR FILTRATION RATE > 60.0 (>51); GLUCOSE, FASTING 88 MG/DL (70-100); POTASSIUM SERUM 4.4 MEQ/L (3.5-5.1); SODIUM LEVEL 144 MEQ/L (136-145)
== END ==
LOC: M LAB 08:56
PROVIDERS: ATTEND Internal Medicine
DX: R79.89 Other specified abnormal findings of blood chemistry (principal)

== ENCOUNTER → 2019-11-02 | Outpatient (CLI) | payer MEDICARE ==
[2019-11-02 10:36] LABS: PLATELET COUNT, AUTOMATED 329 10^3/uL (150-450)
[2019-11-02 10:46] LABS: INR 0.95; PROTHROMBIN TIME 12.9 SECONDS (11.8-14.0)
[2019-11-02 10:47] LABS: PARTIAL THROMBOPLASTIN TIME 24.8 SECONDS (25.0-38.4)
[2019-11-02 10:57] LABS: COLLAGEN EPINEPHRINE 90 SECONDS (74-162)
== END ==
LOC: M LAB 08:50
PROVIDERS: ATTEND Physician Assistant
DX: M47.27 Other spondylosis with radiculopathy, lumbosacral region (principal)

== ENCOUNTER → 2019-11-02 | Outpatient (CLI) | payer MEDICARE ==
[2019-11-02 11:17] LABS: ALBUMIN 3.2 GM/DL (3.2-5.2); ALT/SGPT 47 U/L (12-78); BILIRUBIN,TOTAL 0.5 MG/DL (0.2-1.0); BLOOD UREA NITROGEN 16 MG/DL (7-18); CALCIUM LEVEL 9.3 MG/DL (8.5-10.1); CARBON DIOXIDE LEVEL 31 MEQ/L (21-32); CHLORIDE LEVEL 109 MEQ/L (98-107); CHOLESTEROL LEVEL 204 MG/DL (<200); CHOLESTEROL RISK RATIO 4.636 (<5); GLOMERULAR FILTRATION RATE > 60.0 (>51); GLUCOSE, FASTING 89 MG/DL (70-100); HDL CHOLESTEROL 44 MG/DL (>40); LDL CHOLESTEROL 91 MG/DL (<100); NON-HDL-C 160 MG/DL; POTASSIUM SERUM 4.4 MEQ/L (3.5-5.1); SODIUM LEVEL 146 MEQ/L (136-145); TOTAL PROTEIN 6.4 GM/DL (6.4-8.2); TRIGLYCERIDES LEVEL 346 MG/DL (<150)
[2019-11-02 11:29] LABS: HEMOGLOBIN A1c 6.2 %
== END ==
LOC: M LAB 08:53
PROVIDERS: ATTEND Nurse Practitioner Family
DX: E78.2 Mixed hyperlipidemia (principal); E11.9 Type 2 diabetes mellitus without complications; I10 Essential (primary) hypertension

== ENCOUNTER → 2019-12-01 | Outpatient (CLI) | payer MEDICARE | LOC: M LABSMTC 11:14 | PROVIDERS: ATTEND Physical Medicine & Rehabilitation | DX: Z01.812 Encounter for preprocedural laboratory examination (principal); Z20.828 Contact with and (suspected) exposure to other viral communicable diseases ==

== ENCOUNTER → 2019-12-03 | Outpatient (REF) | payer MEDICARE ==
[2019-12-03 15:24] LABS: BASO # 0.1 10^3/uL (0.0-0.2); BASO % 0.5 % (0.0-1.0); EOS % 0.2 % (0.0-3.0); HEMATOCRIT 48.9 % (36.0-47.0); HEMOGLOBIN 14.9 g/dl (12.0-15.5); LYMPH # 1.6 10^3/uL (1.5-5.0); LYMPH % 12.9 % (24.0-44.0); MEAN CORPUSCULAR HEMOGLOBIN 29.7 pg (27.0-33.0); MEAN CORPUSCULAR HGB CONC 30.5 g/dl (32.0-36.5); MEAN CORPUSCULAR VOLUME 97.4 fl (80.0-96.0); MONO # 0.9 10^3/uL (0.0-0.8); MONO % 7.1 % (0.0-5.0); NEUTROPHILS # 9.8 10^3/uL (1.5-8.5); NEUTROPHILS % 76.7 % (36.0-66.0); PLATELET COUNT, AUTOMATED 350 10^3/uL (150-450); RED BLOOD COUNT 5.02 10^6/uL (4.00-5.40); WHITE BLOOD COUNT 12.7 10^3/uL (4.0-10.0)
[2019-12-03 15:34] LABS: PARTIAL THROMBOPLASTIN TIME 26.9 SECONDS (24.2-38.5); PROTHROMBIN TIME 13.4 SECONDS (12.5-14.3)
[2019-12-03 15:49] LABS: ALBUMIN 3.5 GM/DL (3.2-5.2); ALT/SGPT 71 U/L (12-78); BILIRUBIN,TOTAL 0.4 MG/DL (0.2-1.0); BLOOD UREA NITROGEN 27 MG/DL (7-18); CALCIUM LEVEL 9.4 MG/DL (8.5-10.1); CARBON DIOXIDE LEVEL 30 MEQ/L (21-32); CHLORIDE LEVEL 108 MEQ/L (98-107); CREATININE FOR GFR 0.67 MG/DL (0.55-1.30); GLOMERULAR FILTRATION RATE > 60.0 (>51); GLUCOSE, FASTING 121 MG/DL (70-100); NT-PRO BNP 57 PG/ML (<125); POTASSIUM SERUM 4.6 MEQ/L (3.5-5.1); SODIUM LEVEL 144 MEQ/L (136-145); TOTAL PROTEIN 6.7 GM/DL (6.4-8.2)
== END ==
LOC: M SFHCPLAZ 12:33
PROVIDERS: ATTEND Family Medicine
DX: I10 Essential (primary) hypertension (principal)

== ENCOUNTER → 2020-01-11 | Outpatient (CLI) | payer MEDICARE ==
[~2020-01-11] MED LIST changes: +CYAN500T14 PO; -CYAN500T8 PO
[2020-01-11 11:30] LABS: BASO # 0.1 10^3/uL (0.0-0.2); BASO % 0.4 % (0.0-1.0); EOS % 0.1 % (0.0-3.0); HEMATOCRIT 49.8 % (36.0-47.0); HEMOGLOBIN 15.3 g/dl (12.0-15.5); LYMPH # 2.1 10^3/uL (1.5-5.0); LYMPH % 14.1 % (24.0-44.0); MEAN CORPUSCULAR HEMOGLOBIN 30.3 pg (27.0-33.0); MEAN CORPUSCULAR HGB CONC 30.7 g/dl (32.0-36.5); MEAN CORPUSCULAR VOLUME 98.6 fl (80.0-96.0); MONO # 1.3 10^3/uL (0.0-0.8); MONO % 8.6 % (0.0-5.0); NEUTROPHILS % 75.4 % (36.0-66.0); PLATELET COUNT, AUTOMATED 349 10^3/uL (150-450); RED BLOOD COUNT 5.05 10^6/uL (4.00-5.40); WHITE BLOOD COUNT 14.6 10^3/uL (4.0-10.0)
[2020-01-11 11:58] LABS: BLOOD UREA NITROGEN 23 MG/DL (7-18); CALCIUM LEVEL 10.5 MG/DL (8.5-10.1); CARBON DIOXIDE LEVEL 32 MEQ/L (21-32); CHLORIDE LEVEL 106 MEQ/L (98-107); CREATININE FOR GFR 0.68 MG/DL (0.55-1.30); GLOMERULAR FILTRATION RATE > 60.0 (>51); GLUCOSE, FASTING 77 MG/DL (70-100); POTASSIUM SERUM 4.8 MEQ/L (3.5-5.1); SODIUM LEVEL 143 MEQ/L (136-145)
== END ==
LOC: M PLALAB 09:34
PROVIDERS: ATTEND Neurological Surgery
DX: E24.9 Cushing's syndrome, unspecified (principal)
CPT/HCPCS: 36415; 80048; 85025; 85730; G0463

== ENCOUNTER → 2020-01-12 | Outpatient (CLI) | payer MEDICARE ==
[~2020-01-12] MED LIST changes: -CYAN500T14 PO; +CYAN500T8 PO
== END ==
LOC: M LABSMTC 14:07
PROVIDERS: ATTEND Physician Assistant Medical
DX: Z20.828 Contact with and (suspected) exposure to other viral communicable diseases (principal); I10 Essential (primary) hypertension; Z92.3 Personal history of irradiation

== ENCOUNTER → 2020-03-08 | Outpatient (CLI) | payer MEDICARE ==
[~2020-03-08] MED LIST changes: +CYAN500T14 PO; -CYAN500T8 PO; +GABA-282 PO; -GABA-843 PO; -LISI-538 PO; +LISI20TA33 PO
[2020-03-08 12:36] LABS: ALBUMIN 3.4 GM/DL (3.2-5.2); ALT/SGPT 48 U/L (12-78); BILIRUBIN,TOTAL 0.4 MG/DL (0.2-1.0); BLOOD UREA NITROGEN 18 MG/DL (7-18); CALCIUM LEVEL 9.4 MG/DL (8.5-10.1); CARBON DIOXIDE LEVEL 30 MEQ/L (21-32); CHLORIDE LEVEL 107 MEQ/L (98-107); CHOLESTEROL LEVEL 196 MG/DL (<200); CHOLESTEROL RISK RATIO 4.666 (<5); CREATININE FOR GFR 0.67 MG/DL (0.55-1.30); GLOMERULAR FILTRATION RATE > 60.0 (>51); GLUCOSE, FASTING 97 MG/DL (70-100); HDL CHOLESTEROL 42 MG/DL (>40); LDL CHOLESTEROL 99 MG/DL (<100); NON-HDL-C 154 MG/DL; POTASSIUM SERUM 4.1 MEQ/L (3.5-5.1); SODIUM LEVEL 142 MEQ/L (136-145); TOTAL PROTEIN 6.3 GM/DL (6.4-8.2); TRIGLYCERIDES LEVEL 276 MG/DL (<150)
[2020-03-08 12:39] LABS: TOTAL 25(OH) VITAMIN D 36.8 NG/ML (30.0-100.0)
[2020-03-08 12:46] LABS: MALB URINE SIEMENS 31.6 MG/L; MAU/CREAT RATIO 24.1 MCG/MG (0.0-30.0)
[2020-03-08 13:03] LABS: HEMOGLOBIN A1c 5.8 %
== END ==
LOC: M LAB 10:33
PROVIDERS: ATTEND Nurse Practitioner Family
DX: E78.2 Mixed hyperlipidemia (principal); I10 Essential (primary) hypertension; E11.9 Type 2 diabetes mellitus without complications; E55.9 Vitamin D deficiency, unspecified; E24.9 Cushing's syndrome, unspecified

== ENCOUNTER → 2020-03-08 | Outpatient (CLI) | payer MEDICARE ==
[2020-03-08 12:29] LABS: CREATININE FOR GFR 0.76 MG/DL (0.55-1.30); GLOMERULAR FILTRATION RATE > 60.0 (>51)
== END ==
LOC: M LAB 10:23
PROVIDERS: ATTEND Neurological Surgery
DX: E24.9 Cushing's syndrome, unspecified (principal)

== ENCOUNTER → 2020-03-13 | Outpatient (CLI) | payer MEDICARE ==
[~2020-03-13] MED LIST changes: +PROHANCE 279.3MG/ML 15ML VIAL As Ordered ONE; +PROHANCE 279.3MG/ML 5ML VIAL As Ordered ONE
--- NOTE | 2020-03-13 15:10 | REPVR ---
PROCEDURE INFORMATION: Exam: MR Head Without and With Contrast, Sella Exam date and time: 03/13/2020 2:38 PM Age: 54 years old Clinical indication: Condition or disease; Other: Cushings; Additional info: [place]'s syndrome TECHNIQUE: Imaging protocol: MR of the head without and with intravenous contrast. Exam focused on the sella. Contrast material: PROHANCE; Contrast volume: 9 ml; Contrast route: INTRAVENOUS (IV); COMPARISON: No relevant prior studies available. FINDINGS: Limitations: The study is mildly limited due to patient motion artifact. Brain: There is no acute intracranial hemorrhage, cerebral edema, or midline shift. No restricted diffusion is present to suggest acute infarction. Mild scattered increased T2 and FLAIR signal is noted within the periventricular and subcortical white matter. This is nonspecific but could represent early chronic microangiopathic ischemic changes, or less likely the sequela of migraine headaches, demyelinating disease, prior trauma, and vasculitis. Clinical correlation is recommended. Ventricles: No hydrocephalus. Sinuses: There is a mucus retention cyst or polyp within the right maxillary sinus. Mastoid air cells: Minimal fluid is present in the mastoid air cells, more pronounced on the left. Sella: Unremarkable. Pituitary gland is normal. Bones/joints: Unremarkable. IMPRESSION: 1. No acute abnormality. 2. Chronic findings as discussed above. Electronically signed by: Vicente Sebastian On 03/13/2020 15:10:32 PM
== END ==
LOC: M RAD 13:23
PROVIDERS: ATTEND Neurological Surgery
DX: E24.9 Cushing's syndrome, unspecified (principal)
CPT/HCPCS: 70553; A9576

== ENCOUNTER → 2020-04-27 | Outpatient (REF) | payer MEDICARE ==
[~2020-04-27] MED LIST changes: -PROHANCE 279.3MG/ML 15ML VIAL As Ordered ONE; -PROHANCE 279.3MG/ML 5ML VIAL As Ordered ONE
[2020-04-27 17:07] LABS: APPEARANCE, URINE CLOUDY (CLEAR); BACTERIA, URINE AUTO NEGATIVE (NEGATIVE); BILIRUBIN, URINE AUTO NEGATIVE (NEGATIVE); BLOOD, URINE BLOOD 3+ (NEGATIVE); COLOR, URINE AMBER (YELLOW); GLUCOSE, URINE (UA) AUTO NEGATIVE (NEGATIVE); KETONE, URINE AUTO NEGATIVE (NEGATIVE); LEUKOCYTE ESTERASE, URINE AUTO 3+ (NEGATIVE); MUCUS, URINE SMALL (NEGATIVE); NITRITE, URINE AUTO NEGATIVE (NEGATIVE); PROTEIN, URINE AUTO 2+ mg/dL (NEGATIVE); RBC, URINE AUTO TNTC /HPF (0-3); SQUAMOUS EPITHELIAL CELL UR AU 2 /HPF (0-6); UROBILINOGEN, URINE AUTO 0.2 mg/dL (0.0-2.0); WBC, URINE AUTO TNTC /HPF (0-3)
[2020-04-27 17:20] LABS: BASO # 0.1 10^3/uL (0.0-0.2); BASO % 0.4 % (0.0-1.0); EOS # 0.1 10^3/uL (0.0-0.5); EOS % 0.6 % (0.0-3.0); HEMATOCRIT 46.3 % (36.0-47.0); HEMOGLOBIN 14.1 g/dl (12.0-15.5); LYMPH # 1.7 10^3/uL (1.5-5.0); LYMPH % 13.2 % (24.0-44.0); MEAN CORPUSCULAR HEMOGLOBIN 29.1 pg (27.0-33.0); MEAN CORPUSCULAR HGB CONC 30.5 g/dl (32.0-36.5); MEAN CORPUSCULAR VOLUME 95.7 fl (80.0-96.0); MONO % 7.4 % (2.0-8.0); NEUTROPHILS # 10.1 10^3/uL (1.5-8.5); NEUTROPHILS % 76.9 % (36.0-66.0); PLATELET COUNT, AUTOMATED 354 10^3/uL (150-450); RED BLOOD COUNT 4.84 10^6/uL (4.00-5.40); WHITE BLOOD COUNT 13.2 10^3/uL (4.0-10.0)
[2020-04-27 17:35] LABS: INR 0.96
[2020-04-27 17:36] LABS: PARTIAL THROMBOPLASTIN TIME 28.6 SECONDS (24.2-38.5)
[2020-04-27 17:37] LABS: BLOOD UREA NITROGEN 21 MG/DL (7-18); CALCIUM LEVEL 10.1 MG/DL (8.5-10.1); CARBON DIOXIDE LEVEL 31 MEQ/L (21-32); CHLORIDE LEVEL 106 MEQ/L (98-107); CREATININE FOR GFR 0.68 MG/DL (0.55-1.30); FREE T4 0.88 NG/DL (0.76-1.46); GLOMERULAR FILTRATION RATE > 60.0 (>51); GLUCOSE, FASTING 81 MG/DL (70-100); POTASSIUM SERUM 4.9 MEQ/L (3.5-5.1); SODIUM LEVEL 143 MEQ/L (136-145); THYROID STIMULATING HORMONE 0.313 uIU/ML (0.358-3.740)
== END ==
LOC: M SFHCPLAZ 14:17
PROVIDERS: ATTEND Family Medicine
DX: Z01.818 Encounter for other preprocedural examination (principal); E05.90 Thyrotoxicosis, unspecified without thyrotoxic crisis or storm; R35.0 Frequency of micturition
CPT/HCPCS: 36415; 80048; 81001; 84439; 84443; 85025; 85610; 85730; 87088; 87186; G0463

== ENCOUNTER 2020-06-01 05:51 | Inpatient (IN) | payer MEDICARE ==
[~2020-06-01] VITALS: Ht 121.9 cm; Wt 86.4 kg
[2020-06-01] MEDS ORDERED: lisinopriL 40 MG TAB PO ONE (06:35)
[2020-06-01] MEDS ORDERED: hydroCHLOROthiazide 12.5 MG CAPSULE PO ONE (06:35)
[2020-06-01 06:53] LABS: HEMATOCRIT 30.8 % (36.0-47.0); HEMOGLOBIN 9.1 g/dl (12.0-15.5); MEAN CORPUSCULAR HEMOGLOBIN 27.9 pg (27.0-33.0); MEAN CORPUSCULAR HGB CONC 29.5 g/dl (32.0-36.5); MEAN CORPUSCULAR VOLUME 94.5 fl (80.0-96.0); PLATELET COUNT, AUTOMATED 407 10^3/uL (150-450); RED BLOOD COUNT 3.26 10^6/uL (4.00-5.40); WHITE BLOOD COUNT 10.7 10^3/uL (4.0-10.0)
[2020-06-01 07:21] LABS: CALCIUM LEVEL 10.4 MG/DL (8.5-10.1); CREATININE FOR GFR 2.66 MG/DL (0.55-1.30); GLOMERULAR FILTRATION RATE 19.8 (>51); POTASSIUM SERUM 4.5 MEQ/L (3.5-5.1)
[2020-06-01] MEDS ORDERED: NS 1,000 ML IV ONE (07:30)
[2020-06-01] MEDS ORDERED: CALC500T25 PO (08:26)
[2020-06-01] MEDS ORDERED: APPLCAP PO (08:26)
[2020-06-01] MEDS ORDERED: FAMO40TA3 PO (08:26)
[2020-06-01] MEDS ORDERED: ACET1TAB16 PO (08:26)
[2020-06-01] MEDS ORDERED: B-COTAB10 PO (08:26)
[2020-06-01] MEDS ORDERED: DULO1CAP5 PO (08:26)
[2020-06-01] MEDS ORDERED: TRUL0.5I SC (08:26)
[2020-06-01] MEDS ORDERED: BUSP30TA PO (08:26)
[2020-06-01] MEDS ORDERED: PREG50CA PO (08:26)
[2020-06-01] MEDS ORDERED: FAMO20TA PO (08:26)
[2020-06-01] MEDS ORDERED: LISI40TA4 PO (08:26)
[2020-06-01] MEDS ORDERED: BUPR150T12 PO (08:26)
[2020-06-01] MEDS ORDERED: DULO60CA35 PO (08:26)
[2020-06-01] MEDS ORDERED: D31000TA2 PO (08:26)
[2020-06-01] MEDS ORDERED: CELE1CAP4 PO (08:26)
[2020-06-01 08:41] LABS: APPEARANCE, URINE CLOUDY (CLEAR); BACTERIA, URINE AUTO NEGATIVE (NEGATIVE); BILIRUBIN, URINE AUTO NEGATIVE (NEGATIVE); BLOOD, URINE BLOOD NEGATIVE (NEGATIVE); COLOR, URINE YELLOW (YELLOW); GLUCOSE, URINE (UA) AUTO NEGATIVE (NEGATIVE); KETONE, URINE AUTO NEGATIVE (NEGATIVE); LEUKOCYTE ESTERASE, URINE AUTO 1+ (NEGATIVE); MUCUS, URINE SMALL (NEGATIVE); NITRITE, URINE AUTO NEGATIVE (NEGATIVE); PROTEIN, URINE AUTO 1+ mg/dL (NEGATIVE); RBC, URINE AUTO 6 /HPF (0-3); SPECIFIC GRAVITY URINE AUTO 1.009 (1.002-1.035); SQUAMOUS EPITHELIAL CELL UR AU 6 /HPF (0-6); UROBILINOGEN, URINE AUTO 0.2 mg/dL (0.0-2.0); WBC, URINE AUTO 17 /HPF (0-3)
[2020-06-01] MEDS ORDERED: traZODone 100 MG TAB PO PRN (08:50)
[2020-06-01] MEDS: busPIRone 10 MG TAB PO SCH ×2 (09:00→22:34)
[2020-06-01] MEDS: DULoxetine 30 MG CAP (CYMBALTA) PO SCH ×2 (09:00→22:34)
[2020-06-01] MEDS: NALTREXONE 50 MG TAB PO SCH (09:00)
[2020-06-01] MEDS: VITAMIN D 1,000 INTERNATIONAL UNITS TABLET PO SCH (09:00)
[2020-06-01] MEDS ORDERED: CALCIUM/VITAMIN D 500 MG TAB PO SCH (09:00)
[2020-06-01] MEDS: NEPHRO-VIT TAB (NEPHROCAPS) PO SCH (09:00)
--- NOTE | 2020-06-01 09:23 | REP ---
INDICATION: htn, recent brain surgery r/o bleed. COMPARISON: None. TECHNIQUE: Axial CT images with multiplanar reformations. FINDINGS: No acute bleed or acute large vessel territorial infarct. Ventricles, cisterns and sulci are within normal limits. No mass effect or midline shift. No abnormal fluid collections. The maxillary sinuses are opacified, with dense material on the right and fluid level on the left. Mastoid air cells are clear. IMPRESSION: No acute findings. [id number] sinusitis. <Electronically signed by Delmer Clarke > 06/01/20 0919
[2020-06-01] MEDS ORDERED: DEXTROSE 50% 50 ML SYRINGE IV PRN (10:10)
[2020-06-01] MEDS ORDERED: GLUCOSE 4GM CHEW TABLET PO PRN (10:10)
[2020-06-01] MEDS ORDERED: GLUCAGON INJ 1MG VIAL SC PRN (10:10)
[2020-06-01] MEDS ORDERED: PILL CUTTER 1 EACH XX PRN (10:35)
[2020-06-01] MEDS ORDERED: METOCLOPRAMIDE INJ 10MG/2ML VIAL (J2765 PER 1) IV SCH (11:00)
--- NOTE | 2020-06-01 11:00 | HPEPDOC ---
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 In the ED presentation BP was SBP 179 and she reported not having taken her home meds and she was given her lisinopril 40mg and HCTZ 25mg after which lab evaluation showed an PRAVEEN with Cr elevated to 2.66 from prior 0.68 on 04/27/2020 with a BUN of 45, Hgb 9.1, CBC 10.7, platelets 407, Na 144, K 4.5, Ca 10.4, and a head CT that was reported to me by the ED provider as without evidence of bleeding or ventriculomegaly, with read not yet posted on [employer]. This is of note, in the setting of recent IV contrast while at [facility], poor PO and continuation of thiazide diuretic, ACEi, BID NSAID, metformin, lyrica and baclofen. She is now being admitted to medicine for hypertensive urgency and PRAVEEN. PAST MEDICAL HISTORY: 1. Hypertension. 2. Hypercholesterolemia. 3. Depression. 4. Arthritis. 5. Non-insulin dependent diabetes type 2. 6. 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 (C) section. 2. Surgery abscessed tooth. 3. Total left hip replacement. 4. Left lumpectomy for cancer with radiation. 5. Pituitary adenoma resection c/b CSF leak s/p abdominal fat pad repair FAMILY HISTORY: Paternal grandmother had cancer. Maternal grandfather had lung cancer. Maternal grandmother of aneurysm. ALLERGIES: Please see below. REVIEW OF SYSTEMS: CONSTITUTIONAL: Generally felt unwell and tired since discharge from [facility] on 05/30. Poor PO. HEENT: No nausea, emesis, has mild episodic headaches. No diplopia, vision changes, dysphagia or change in taste or smell CARDIOVASCULAR: No chest pain, palpitations. reports chronic peripheral edema and actually reports that this is better than prior RESPIRATORY: No SOB, cough, rhinorrhea, congestion, [place] GASTROINTESTINAL: No nausea, emesis, abdominal pain, diarrhea or constipation GENITOURINARY: No dysuria, hematuria, cloudy foul smelling urine. Urine is more concentrated and attributed it to low PO SKIN: No new rashes, erythema MUSCULOSKELETAL: No new myalgias, feels generally weak NEUROLOGICAL: No vision changes, speech changes, asymmetrical weakness. PSYCHIATRIC: No confusion, mood is within her baseline ENDOCRINE: No polyuria, polydipsia, increased sensitivity to coldness or heat. HEMATOLOGIC/LYMPHATIC: No hematuria, hematemesis, hemoptysis, hematochezia or easy bruising HOME MEDICATIONS: Please see below. PHYSICAL EXAMINATION: VITAL SIGNS: Hypertensive with latest BP 170/92, 97% on room air, afebrile GENERAL APPEARANCE: Cushingoid appearance, NAD HEENT: NCAT, PERRLA, EOMI, MMM CARDIOVASCULAR: RRR, no m/r/g LUNGS: CTAB, poor effort, no rales, rhonchi, wheezing ABDOMEN: Obese, normoactive sounds, soft, NTND EXTREMITIES: has chronic non pitting puffiness in bilateral LE, otherwise WWP NEUROLOGICAL: CN 2-12 intact, moving all extremities, 4/5 weakness throughout PSYCHIATRIC: AOx3 LABORATORY DATA and IMAGING: as noted above. see below for detailed summary. MICROBIOLOGY: Please see below. 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 PLAN: PRAVEEN: Likely multifactorial including prerenal in the setting of poor PO, with recent IV contrast during imaging, and discharged home on HCTZ, lisinopril, BID NSAIDs, baclofen, lyrica, metformin -s/p 1L NS -post void residual was wnl, low concern for obstruction uropathy -will give 1 more liter at 100cc/hr -hold thiazide, NSAIDs, ACEi -will use labetalol for HTN -renal US -strict I/Os -daily weights -nephrology consult Hypertensive urgency: reports having missed her meds today -CT head without bleeding or evidence of increased intracranial pressure i/s/o recent neurosurgery -labetalol 100 TID for now while holding thiazide and ACEi, hold for SBP <120 -2g sodium diet, with consistent carb DM: -consistent carb diet -SSI -hold metformin -hypoglycemia protocol -FSBG AC/HS Recent neurosurgery s/p pituitary adenoma resection on 05/23 c/b CSF leak s/p abdominal fat pad repair and discharged from [facility] on 05/30 -has follow up [facility] neurosurgery early next week -CT head without bleeding or ventriculomegaly with baseline neurological examination -BP control as noted above -zofran 4mg IV BIDP for nausea and to prevent retching Chronic pain: -continue home lyrica, baclofen and duloxetine Chronic psych diagnoses: -continue bupropion, buspar, naltrexone, duloxetine GERD: -continue famotidine BID Insomnia: -continue home PRN trazodone DVT ppx: TEDs and SCDs. Vital Signs Vital Signs Date Time Temp Pulse Resp B/P (MAP) Pulse Ox O2 Delivery O2 Flow Rate FiO2 06/01/20 08:01 82 20 160/76 (104) 92 Room Air 06/01/20 06:11 98.4 Laboratory Data Labs 24H Laboratory Tests 2 06/01/20 06:39: Nucleated Red Blood Cells % (auto) 0.3H, Anion Gap 8, Glomerular Filtration Rate 19.8L, Calcium Level 10.4H 06/01/20 08:26: Urine Color YELLOW, Urine Appearance CLOUDYH, Urine pH 6.0, Urine Specific [place] 1.009, Urine Protein 1+H, Urine Glucose (Auto)(UA) NEGATIVE, Urine Ketones (Auto) NEGATIVE, Urine Blood NEGATIVE, Urine Nitrite NEGATIVE, Urine Bilirubin NEGATIVE, Urine Urobilinogen 0.2, Urine Leukocyte Esterase (Auto) 1+H, Urine WBC (Auto) 17H, Urine RBC (Auto) 6H, Urine Hyaline Casts (Auto) 0, Urine Bacteria (Auto) NEGATIVE, Urine Squamous Epithelial Cells 6, Urine Mucus (Auto) SMALL, Urine Sperm (Auto) CBC/BMP Laboratory Tests 06/01/20 06:39 Home Medications Scheduled Acetaminophen with Codeine (Acetaminophen-Cod #3 Tablet) 1 Each Tablet, 1 TAB PO BID Atorvastatin Calcium (Atorvastatin Calcium) 80 Mg Tab, 80 MG PO QHS Baclofen (Baclofen) 10 Mg Tab, 10 MG PO QID Bupropion Hcl (Bupropion Xl) 150 Mg Tab.er.24h, 150 MG PO DAILY Buspirone HCl (Buspirone HCl) 30 Mg Tablet, 30 MG PO BID Calcium Carbonate/Vitamin D3 (Calcium 500-Vit D3 400 Tablet) 1 Each Tablet, 1 TAB PO BID Celecoxib (Celebrex) 200 Mg Capsule, 200 MG PO BID Cholecalciferol (Vitamin D3) (Vitamin D3) 1,000 Unit Tablet, 1,000 UNITS PO DAILY Cider Vinegar (Apple Cider Vinegar) 600 Mg Capsule, 1,200 MG PO DAILY Dulaglutide (Trulicity) 1.5 Mg/0.5 Ml Pen.injctr, 1.5 MG SC QWEEK SUNDAYS Duloxetine HCl (Duloxetine HCl) 60 Mg Capsule.dr, 60 MG PO QAM Duloxetine Hcl (Duloxetine HCl) 30 Mg Capsule.dr, 30 MG PO QHS Famotidine (Famotidine) 20 Mg Tablet, 20 MG PO BID Hydrochlorothiazide (Hydrochlorothiazide) 12.5 Mg Tab, 12.5 MG PO DAILY Lisinopril (Lisinopril) 40 Mg Tablet, 40 MG PO DAILY Metformin HCl (Metformin HCl) 500 Mg Tab, 500 MG PO BID Naltrexone HCl (Naltrexone HCl) 50 Mg Tab, 25 MG PO DAILY Pregabalin (Lyrica) 50 Mg Capsule, 50 MG PO BID Vitamin B Complex/Folic Acid (B-Complex Tablet) 0.4 Mg Tablet, 1 TAB PO DAILY Scheduled PRN Trazodone HCl (Trazodone HCl) 100 Mg Tab, 100 MG PO QHS PRN for SLEEP Allergies Coded Allergies: Sulfa (Sulfonamide Antibiotics) (Verified Adverse Reaction, Mild, n/v, 10/19/19) codeine (Verified Adverse Reaction, Mild, N/V, 06/01/20) A-FIB/CHADSVASC A-FIB History Current/History of A-Fib/PAF?: No Current PO Anticoag Therapy: No Age/Risk Factor Scoring CHADSVASC: CHADSVASC Response (Comments) Value Age Risk Factor Age < 65 years old 0 Gender Risk Factor Female 1 Hx of CHF No 0 Hx of HTN Yes 1 Hx of Stroke/TIA/or VTE No 0 Hx of Diabetes Yes 1 Hx of Vascular Disease No 0 Total 3 Treatment Treatment ordered: NONE Reason Anticoagulant not given: Recent/upcomin procedure MITALI BABB MD Jun 01, 2020 10:08
[2020-06-01] MEDS: HumaLOG INSULIN (NovoLOG) PER UNIT SC SCH ×3 (12:00→21:00)
[2020-06-01] MEDS ORDERED: LABETALOL 100MG TAB PO ONE (12:00)
[2020-06-01] MEDS: BACLOFEN 10 MG TAB PO SCH ×5 (13:00→22:35)
[2020-06-01 14:00] VITALS: BP 182/111
[2020-06-01] MEDS: ONDANSETRON 4MG/2ML VIAL IV SCH ×2 (14:02→22:20)
[2020-06-01] MEDS: FAMOTIDINE 20 MG TAB PO SCH (14:05)
[2020-06-01] MEDS: PREGABALIN 50 MG CAP (LYRICA) PO SCH ×2 (14:05→22:34)
[2020-06-01] MEDS: ACETAMINOPHEN TAB 650MG DOSE (2X325MG) PO PRN ×2 (14:06→22:36)
[2020-06-01] MEDS: buPROPion **XL** TABLET 150MG (WELLBUTRIN XL) PO SCH (15:26)
--- NOTE | 2020-06-01 16:33 | REP ---
INDICATION: PRAVEEN. COMPARISON: None. FINDINGS: Multiple ultrasonographic images of the right kidney show the right kidney to measure 12.8 x 6.3 x 6 cm. The renal cortical echotexture is unremarkable. There are no masses. There is good corticomedullary differentiation. There is no hydronephrosis. There are no perinephric fluid collections. Multiple ultrasonographic images of the left kidney show the left kidney to measure 12.9 x 5.6 x 6.4 cm. The renal cortical echotexture is unremarkable. There are no masses. There is good corticomedullary differentiation. There is no hydronephrosis. There are no perinephric fluid collections. In the superior pole region there is a 1.3 x 1.3 x 1 cm sized anechoic structure which exhibits posterior wall enhancement and increased through transmission. IMPRESSION: There is a simple Bosniak class 1 cyst in the superior pole of the left kidney as described above. Examination is otherwise unremarkable. <Electronically signed by Ramón Dean > 06/01/20 [id number]
[2020-06-01] MEDS: LABETALOL 100MG TAB PO SCH ×2 (16:53→22:00)
[2020-06-01 18:00] VITALS: BP 123/73
[2020-06-01 18:56] VITALS: BP 120/73
[2020-06-01 20:37] VITALS: BP 119/71
[2020-06-01] MEDS ORDERED: NS 0.45% 1,000 ML IV SCH (21:40)
[2020-06-01] MEDS: ATORVASTATIN 20 MG TAB PO SCH (22:34)
[2020-06-02 02:21] VITALS: BP 130/86
[2020-06-02] MEDS: ONDANSETRON 4MG/2ML VIAL IV SCH ×3 (05:17→21:16)
[2020-06-02 05:42] VITALS: BP 144/88
[2020-06-02] MEDS: LABETALOL 100MG TAB PO SCH ×3 (06:07→21:19)
[2020-06-02 06:12] LABS: HEMATOCRIT 31.1 % (36.0-47.0); MEAN CORPUSCULAR HEMOGLOBIN 27.7 pg (27.0-33.0); MEAN CORPUSCULAR HGB CONC 28.9 g/dl (32.0-36.5); MEAN CORPUSCULAR VOLUME 95.7 fl (80.0-96.0); PLATELET COUNT, AUTOMATED 451 10^3/uL (150-450); RED BLOOD COUNT 3.25 10^6/uL (4.00-5.40); WHITE BLOOD COUNT 10.2 10^3/uL (4.0-10.0)
[2020-06-02 06:38] LABS: CALCIUM LEVEL 9.6 MG/DL (8.5-10.1); CREATININE FOR GFR 2.75 MG/DL (0.55-1.30); GLOMERULAR FILTRATION RATE 19.1 (>51); MAGNESIUM LEVEL 2.5 MG/DL (1.8-2.4); POTASSIUM SERUM 4.8 MEQ/L (3.5-5.1)
[2020-06-02] MEDS: HumaLOG INSULIN (NovoLOG) PER UNIT SC SCH ×4 (07:30→21:00)
[2020-06-02] MEDS: busPIRone 10 MG TAB PO SCH ×2 (08:36→21:16)
[2020-06-02] MEDS: DULoxetine 30 MG CAP (CYMBALTA) PO SCH ×2 (08:36→21:16)
[2020-06-02] MEDS: VITAMIN D 1,000 INTERNATIONAL UNITS TABLET PO SCH (08:36)
[2020-06-02] MEDS: NALTREXONE 50 MG TAB PO SCH (08:37)
[2020-06-02] MEDS: FAMOTIDINE 20 MG TAB PO SCH (08:37)
[2020-06-02] MEDS: NEPHRO-VIT TAB (NEPHROCAPS) PO SCH (08:37)
[2020-06-02] MEDS: PREGABALIN 50 MG CAP (LYRICA) PO SCH (08:37)
[2020-06-02] MEDS: BACLOFEN 10 MG TAB PO SCH ×3 (08:38→21:17)
[2020-06-02] MEDS: buPROPion **XL** TABLET 150MG (WELLBUTRIN XL) PO SCH (08:38)
--- NOTE | 2020-06-02 09:17 | REP ---
INDICATION: worsening confusion, hallucination. COMPARISON: None. TECHNIQUE: Axial CT images with multiplanar reformations. FINDINGS: No acute bleed or acute large vessel territorial infarct. Ventricles, cisterns and sulci are within normal limits. No mass effect or midline shift. No abnormal fluid collections. Dense material opacifies the right maxillary sinus. A fluid level is seen on the left. IMPRESSION: No acute intracranial findings. Acute on chronic sinusitis. <Electronically signed by Delmer Clarke > 06/02/20 0913
--- NOTE | 2020-06-02 11:54 | CR ---
CONSULTATION DATE: 06/01/2020 REQUESTING PHYSICIAN: Dr. Hellen Pinto REASON FOR CONSULTATION: Acute renal failure. CHIEF COMPLAINT: Weakness and fatigue. HISTORY OF PRESENT ILLNESS: Ms. Tahira Mccracken is previously unknown to me. She is a 54-year-old female with a past medical history of pituitary microadenoma with Mendota's syndrome; status post recent resection of the microadenoma by [facility] neurosurgery with course complicated by a CSF leak; status post abdominal fat pad repair and discharged home on May 30, who now presents to [facility] with complaints of generalized fatigue, weakness, nausea, poor oral intake and complaint of recent high blood pressures at home. Patient also has a history of obesity, noninsulin diabetes mellitus, hypertension, dyslipidemia and depression. In the Emergency Room, patient's initial blood pressure was 189/76 and she was given a dose of 40 mg of Lisinopril along with 25 mg of Hydrochlorothiazide and laboratory values subsequently resulted showing an acute kidney injury with creatinine elevated at 2.66 as compared to her prior baseline creatinine of 0.68 (on April 27 2020). Patient did have I.V. contrast scans recently while admitted to [facility] and reports that while she was at home, since discharge, she has been compliant with her Thiazide diuretic, YIMI inhibitor, twice daily NSAID and Metformin. She reports feeling weak and fatigued and having poor intake. Nephrology evaluation was requested in view of her acute kidney injury. PAST MEDICAL HISTORY: Hypertension, dyslipidemia, arthritis, type 2 diabetes mellitus, pituitary microadenoma; status post recent resection, Vel's syndrome, obesity, neuropathy, GERD. PAST SURGICAL HISTORY: section, total left hip replacement, left lumpectomy for cancer with radiation, pituitary adenoma resection complicated by CSF leak, umbilical hernia repair, D and C, hysterectomy, left breast reconstruction, cerebral arteriogram. FAMILY HISTORY: Significant for cancer in her grandparents. Father at age 69, hypertension, from [place], CVA. Mother at [id number] with Crohn's disease. Her siblings have hypertension. SOCIAL HISTORY: She is a nonsmoker. She is a non-drinker and no drug use. ALLERGIES: Sulfa and codeine. REVIEW OF SYSTEMS: CONSTITUTIONAL: Complains of generalized fatigue and exhaustion and poor intake. HEENT: Reports mild headaches. Denies any vision changes or change in taste or smell. CARDIAC: Denies chest pain or palpitations. Reports chronic non-pitting leg edema. RESPIRATORY: Denies cough or shortness of breath. GASTROINTESTINAL: Reports poor oral intake, but denies diarrhea or vomiting. GENITOURINARY: She reports darker urine, but denies dysuria or hematuria. SKIN: Denies any new rashes or ulcers. MUSCULOSKELETAL: Denies any new myalgias or arthralgias, but complains of generalized weakness. NEUROLOGIC: Had a recent pituitary microadenoma resection. Denies any speech changes or new weakness. PSYCHIATRIC: Reports depression, but denies any new mood changes. ENDOCRINE: Reports Vel's syndrome and diabetes. HEMATOLOGIC: Denies anticoagulant use. Reports anemia. Remainder of the review of systems is negative or as per HPI. PHYSICAL EXAMINATION: VITAL SIGNS: Temperature 97.6, pulse 103, respiratory rate 20, blood pressure 123/73, saturating 97% on 2 liters nasal cannula. GENERAL: Patient is seen lying in the stretcher in the Emergency Room. Awake, alert, but fatigued appearing. Cushingoid appearance. HEENT: Extraocular muscles are intact. Makes good eye contact. Tongue is dry. Neck is supple. Jugular veins are not elevated. HEART: Heart sounds are regular. No murmur. There is mild tachycardia. There is some chronic puffiness in the legs, but no overt pitting edema. LUNGS: Show clear air movement bilaterally. No crackle or rale. ABDOMEN: Obese, soft, and nontender. NEUROLOGIC: She is oriented x3, cooperative and moves all extremities on command. SKIN: Warm and dry, and somewhat fragile appearing. There is mild pallor. LABORATORY DATA: White count 10.7, hemoglobin 9.1, platelets 407,000. Sodium 144, potassium 4.5, bicarbonate 28, BUN 45, creatinine 2.6. Calcium 10.4. IMAGING STUDIES: Renal ultrasound done this morning shows simple Bosniak class 1 cyst in the left kidney, otherwise unremarkable. INPATIENT MEDICATIONS: I am starting the patient on half NS at 40 cc an hour. She is also on Tylenol p.r.n., Atorvastatin 80 mg p.o. q.h.s., Baclofen 10 mg p.o. four times a day, Wellbutrin 150 mg p.o. daily, Buspar 30 mg p.o. b.i.d., Duloxetine 60 mg p.o. daily and 30 mg p.o. q.h.s., Pepcid 10 mg p.o. daily, insulin, Labetalol 100 mg p.o. every 8 hours, Naltrexone 25 mg p.o. daily, Zofran 4 mg I.V. every 8 hours, Lyrica 50 mg twice daily, Trazodone 100 mg p.o. q.h.s., Vitamin B complex with Vitamin C and folic acid one tablet p.o. daily, Vitamin D 1,000 units p.o. daily, and I am discontinuing her calcium plus Vitamin D twice daily. PROBLEMS: 1. Acute kidney injury in this patient with a baseline creatinine of less than 1 (creatinine equals 0.69 on April 27 2020): It is likely secondary to recent hospitalization with I.V. contrast scans in the setting of poor oral intake and home medications including YIMI inhibitor, Thiazide diuretic twice daily, Celecoxib and Metformin. Patient is presently discontinued off of all nephrotoxic agents and is being gently hydrated with normal saline and I am switching her to half normal saline. Her renal imaging was unremarkable. Please keep her off of YIMI, ARB, NSAIDS and diuretic at this time. Continue to monitor urine output. There is no need for a Casey catheter at present. 2. Hypertension: Blood pressures were initially elevated in the Emergency Room and unfortunately she did receive a dose of Lisinopril and Hydrochlorothiazide while she is having acute kidney injury. She is now switched over to Labetalol and I would continue gentle hypotonic fluids at this time as well. Her latest blood pressures are much better with systolic now in the 110's and 120's, and I feel she can easily get half normal saline at 40 cc an hour. 3. Type 2 diabetes mellitus: Metformin is on hold. Her sugars are well controlled. 4. Hypercalcemia: Calcium on the labs is 10.4 and I discontinued her calcium supplement. She should be kept off of Thiazide diuretics as well at present. Thank you for involving me in the care of Ms. Mccracken. I will be happy to follow her along with you.
[2020-06-02] MEDS: D5W 1,000 ML IV SCH (12:05)
--- NOTE | 2020-06-02 13:13 | IPNPDOC ---
Text Note Date of Service The patient was seen on 06/02/20. NOTE SUBJECTIVE: -No acute complaints -Drowsy this AM with some potential waxing and waning confusion, holding some of her renally cleared psychotropes. OBJECTIVE: VITAL SIGNS: Normotensive, 97% on room air, afebrile GENERAL APPEARANCE: Cushingoid appearance, NAD HEENT: NCAT, PERRLA, EOMI, MMM CARDIOVASCULAR: RRR, no m/r/g LUNGS: CTAB, poor effort, no rales, rhonchi, wheezing ABDOMEN: Obese, normoactive sounds, soft, NTND EXTREMITIES: has chronic non pitting edema in bilateral LE, otherwise WWP NEUROLOGICAL: CN 2-12 intact, moving all extremities, 5/5 throughout PSYCHIATRIC: AOx3 LABORATORY DATA: Cr 2.75 Na 147 K 4.8 Mag 2.5 WBC 10.2 Hgb 9 platelets 451 Imaging: Renal US: Multiple ultrasonographic images of the right kidney show the right kidney to measure 12.8 x 6.3 x 6 cm. The renal cortical echotexture is unremarkable. There are no masses. There is good corticomedullary differentiation. There is no hydronephrosis. There are no perinephric fluid collections. Multiple ultrasonographic images of the left kidney show the left kidney to measure 12.9 x 5.6 x 6.4 cm. The renal cortical echotexture is unremarkable. There are no masses. There is good corticomedullary differentiation. There is no hydronephrosis. There are no perinephric fluid collections. In the superior pole region there is a 1.3 x 1.3 x 1 cm sized anechoic structure which exhibits posterior wall enhancement and increased through transmission. IMPRESSION: There is a simple Bosniak class 1 cyst in the superior pole of the left kidney as described above. Examination is otherwise unremarkable. Head CT: No acute bleed or acute large vessel territorial infarct. Ventricles, cisterns and sulci are within normal limits. No mass effect or midline shift. No abnormal fluid collections. The maxillary sinuses are opacified, with dense material on the right and fluid level on the left. Mastoid air cells are clear. IMPRESSION: No acute findings. [id number] sinusitis. MICROBIOLOGY: Please see below. 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 PLAN: PRAVEEN: Likely multifactorial including prerenal in the setting of poor PO, with recent IV contrast during imaging, and discharged home on HCTZ, lisinopril, BID NSAIDs, baclofen, lyrica, metformin -s/p 1L NS, now on gentle D5W per nephrology -post void residual was wnl -holding thiazide, NSAIDs, ACEi -labetalol for HTN -renal US grossly wnl with incidental cyst -strict I/Os -daily weights -nephrology consulted, f/u recs Hypertensive urgency: reports having missed her meds on day of presentation. Now resolved. -CT head without bleeding or evidence of increased intracranial pressure i/s/o recent neurosurgery -continue labetalol 100 TID for now while holding thiazide and ACEi, hold for SBP <120 -2g sodium diet, with consistent carb DM: -consistent carb diet -SSI -hold metformin -hypoglycemia protocol -FSBG AC/HS Recent neurosurgery s/p pituitary adenoma resection on 05/23 c/b CSF leak s/p abdominal fat pad repair and discharged from [facility] on 05/30 -has follow up [facility] neurosurgery early next week -CT head without bleeding or ventriculomegaly with baseline neurological examination. Repeat CT head this AM was stable -BP control as noted above -zofran 4mg IV BIDP for nausea and to prevent retching Chronic pain: -Discontinue home lyrica -Reduce baclofen from QID to BID Chronic psych diagnoses: -continue bupropion, buspar -Hold naltrexone, hold AM duloxetine dosing GERD: -continue famotidine BID Insomnia: -Discontinue home PRN trazodone PRN for now DVT ppx: TEDs and SCDs. VS,Fishbone, I+O VS, Fishbone, I+O Laboratory Tests 06/02/20 05:44 Vital Signs Date Time Temp Pulse Resp B/P (MAP) Pulse Ox O2 Delivery O2 Flow Rate FiO2 06/02/20 06:07 66 144/88 06/02/20 05:42 96.6 16 96 Nasal Cannula 2.0 I&O- Last 24 Hours up to 6 AM 06/02/20 06:00 Intake Total 1720 ml Output Total 855 ml Balance 865 ml MITALI BABB MD Jun 02, 2020 08:07
--- NOTE | 2020-06-02 13:35 | REP ---
INDICATION: sob. COMPARISON: Multiple latest 02/14/2016 TECHNIQUE: Portable FINDINGS: The technique utilized in obtaining the radiograph has magnified the cardiac silhouette and accentuated the interstitial markings. The cardiomediastinal silhouette is essentially unchanged. The heart is not enlarged. There is thoracic aortic tortuosity status quo. Two discoid opacities are seen in the left lower lobe. The lung mark are hypoexpanded. There are no patchy opacities or pleural effusions. There is no change in the osseous structures. IMPRESSION: There is discoid subsegmental atelectasis in the left lower lobe. <Electronically signed by Ramón Dean > 06/02/20 0042
[2020-06-02 15:00] VITALS: BP 116/76
--- NOTE | 2020-06-02 15:14 | IPN ---
PROGRESS NOTE DATE: 06/02/2020 SUBJECTIVE: The patient was seen and examined this morning at the bedside. I found her to be quite lethargic. She was falling asleep while I was talking to her. Once she was aroused with verbal and tactile stimulus she did answer all questions appropriately but with short one to two word answers and would quickly nod back off to sleep. I discussed with the Hospitalist Service that the patient appears over-medicated with her psychiatric/neuroleptic medications. OBJECTIVE: VITAL SIGNS: Temperature 96.6, pulse 60, respiratory rate 16, blood pressure 144/88, saturating 96% on 2 liter nasal cannula. Intake yesterday was 1720, urine output today is 1250. Weight __ today is not recorded. GENERAL: The patient is seen lying in bed with the head of the bed elevated. She is falling asleep while I speak to her but opens her eyes to verbal and tactile stimulus and answers questions when repeatedly prompted, able to tell me her name, that she is in [employer] in the [facility] and that the year is 2020. HEENT: Extraocular muscles have mild scleral injection. Tongue is dry. NECK: Supple, jugular veins are difficult to assess. She has monroe facies and cushingoid appearance. HEART: Sounds are regular, S1, S2. EXTREMITIES: There is chronic nonpitting edema of the legs. LUNGS: Show symmetric air entry, mildly diminished at the bases. ABDOMEN: Soft, obese, nontender to palpation. SKIN: Somewhat thin and papery. NEUROLOGIC: The patient appears over-medicated. She falls asleep during the encounter but does arouse to verbal and tactile stimulus and is able to answer simple questions appropriately but with only short one to two word answers before she nods off again. Hemoglobin 9.0, white count 10.2, platelets 451. Sodium 147, potassium 4.8, chloride 111, BUN 46, creatinine 2.7. Chest x-ray was ordered today and shows discoid subsegmental atelectasis in the left lower lobe but no patchy opacities and no pleural effusions. INPATIENT MEDICATIONS: 1. I discontinued 1/2 normal saline and I switched her to D5W at 60 mL an hour for 2 liters. 2. I discussed with primary service regarding her psychiatric and neuroleptic medications and her Baclofen dose is decreased. 3. Her Cymbalta dose is decreased. 4. Her Naltrexone is held. 5. Her Lyrica and Trazodone are both discontinued. The remainder of medications are unchanged as compared to yesterday. PROBLEMS: 1. PRAVEEN in this patient with a baseline creatinine of less than 1 (creatinine equals 0.69 on 04/27/2020). The patient's urine output is improving. She has already made more than 1 liter of urine today. Her PRAVEEN is likely secondary to recent IV contrast administration in the setting of poor oral intake and home medications with renal effect including YIMI inhibitor, Thiazide diuretic and twice daily Celecoxib along with Metformin. Patient is currently somewhat lethargic and altered and her sodium level has come up to 147 and I switching her fluids now to D5W at 60 mL an hour for 2 liters. 2. Hypernatremia: The patient has a mild free water deficit likely secondary to recent use of Thiazide diuretic while she has been having poor oral intake. Fluid orders are written for D5W at 60 mL an hour x2 liters. She is also requiring oxygen at this time and she is not on home oxygen. I did get a chest x-ray and it is negative for any pleural effusion or pulmonary vascular congestion. 3. Hypertension: Blood pressures are very nicely controlled and she continues on Labetalol. Her prior home regimen Lisinopril and Hydrochlorothiazide are both on hold in view of acute kidney injury but the last dose of both medications was on June 01. 4. Altered mental status: The patient appears to be over-medicated. She was falling asleep during the encounter and required verbal and tactile stimulus to arouse, would answer simple questions appropriately with one to two word answers but the would quickly fall back asleep. I discussed with Dr. Pinto and advised to cut back on her neuroleptic and psychiatric medications as there is likely increased half-life given her current renal failure, specifically advised to hold the Trazodone, Lyrica, cut down on the Cymbalta and to reduce her Baclofen.
[2020-06-02] MEDS: ATORVASTATIN 20 MG TAB PO SCH (21:16)
[2020-06-02 22:00] VITALS: BP 156/83
[2020-06-03 02:00] VITALS: BP 141/77
[2020-06-03] MEDS: D5W 1,000 ML IV SCH (03:27)
[2020-06-03] MEDS: ONDANSETRON 4MG/2ML VIAL IV SCH ×3 (03:27→20:56)
[2020-06-03 06:00] VITALS: BP 152/78
[2020-06-03] MEDS: LABETALOL 100MG TAB PO SCH ×3 (06:01→21:38)
[2020-06-03] MEDS: HumaLOG INSULIN (NovoLOG) PER UNIT SC SCH ×4 (07:30→21:00)
[2020-06-03 08:15] LABS: HEMATOCRIT 29.9 % (36.0-47.0); HEMOGLOBIN 8.7 g/dl (12.0-15.5); MEAN CORPUSCULAR HEMOGLOBIN 27.9 pg (27.0-33.0); MEAN CORPUSCULAR HGB CONC 29.1 g/dl (32.0-36.5); MEAN CORPUSCULAR VOLUME 95.8 fl (80.0-96.0); PLATELET COUNT, AUTOMATED 431 10^3/uL (150-450); RED BLOOD COUNT 3.12 10^6/uL (4.00-5.40); WHITE BLOOD COUNT 11.1 10^3/uL (4.0-10.0)
[2020-06-03 08:26] LABS: CALCIUM LEVEL 9.3 MG/DL (8.5-10.1); CREATININE FOR GFR 3.04 MG/DL (0.55-1.30); POTASSIUM SERUM 5.1 MEQ/L (3.5-5.1)
[2020-06-03] MEDS: busPIRone 10 MG TAB PO SCH ×2 (09:39→20:57)
[2020-06-03] MEDS: FAMOTIDINE 20 MG TAB PO SCH (09:39)
[2020-06-03] MEDS: VITAMIN D 1,000 INTERNATIONAL UNITS TABLET PO SCH (09:39)
[2020-06-03] MEDS: buPROPion **XL** TABLET 150MG (WELLBUTRIN XL) PO SCH (09:39)
[2020-06-03] MEDS: BACLOFEN 10 MG TAB PO SCH ×2 (09:39→20:57)
[2020-06-03] MEDS: NEPHRO-VIT TAB (NEPHROCAPS) PO SCH (09:39)
--- NOTE | 2020-06-03 13:17 | IPNPDOC ---
Text Note Date of Service The patient was seen on 06/03/20. NOTE SUBJECTIVE: -No acute complaints -This morning she is experiencing some confusion, lability, having visual disturbances OBJECTIVE: VITAL SIGNS: Normotensive, 97% on room air, afebrile GENERAL APPEARANCE: Cushingoid appearance, NAD HEENT: NCAT, PERRLA, EOMI, MMM CARDIOVASCULAR: RRR, no m/r/g LUNGS: CTAB, poor effort, no rales, rhonchi, wheezing ABDOMEN: Obese, normoactive sounds, soft, NTND EXTREMITIES: has chronic non pitting edema in bilateral LE, otherwise WWP NEUROLOGICAL: CN 2-12 intact, moving all extremities, 5/5 throughout PSYCHIATRIC: AOx3 LABORATORY DATA: Cr 3.02 Na 145 K 5.1 WBC 11.1 Hgb 8.7 platelets 431 Imaging: Renal US: Multiple ultrasonographic images of the right kidney show the right kidney to measure 12.8 x 6.3 x 6 cm. The renal cortical echotexture is unremarkable. There are no masses. There is good corticomedullary differentiation. There is no hydronephrosis. There are no perinephric fluid collections. Multiple ultrasonographic images of the left kidney show the left kidney to measure 12.9 x 5.6 x 6.4 cm. The renal cortical echotexture is unremarkable. There are no masses. There is good corticomedullary differentiation. There is no hydronephrosis. There are no perinephric fluid collections. In the superior pole region there is a 1.3 x 1.3 x 1 cm sized anechoic structure which exhibits posterior wall enhancement and increased through transmission. IMPRESSION: There is a simple Bosniak class 1 cyst in the superior pole of the left kidney as described above. Examination is otherwise unremarkable. Head CT: No acute bleed or acute large vessel territorial infarct. Ventricles, cisterns and sulci are within normal limits. No mass effect or midline shift. No abnormal fluid collections. The maxillary sinuses are opacified, with dense material on the right and fluid level on the left. Mastoid air cells are clear. IMPRESSION: No acute findings. [id number] sinusitis. MICROBIOLOGY: Please see below. ASSESSMENT: 54yo W with a history of morbid obesity, NIDDM, HTN, HLD, depression and Groveland's syndrome 2/2 pituitary microadenoma who recently underwent resection of the microadenoma by [facility] with course c/b a CSF leak s/p abdominal fat pad repair and discharged home on 05/30 who now presents to [facility] with generalized illness and noted hypertension on checking her BP at home now being admitted to medicine for hypertensive urgency and PRAVEEN i/s/o recent IV contrast while at [facility], poor PO and continuation of thiazide diuretic, ACEi, BID NSAID, metformin, lyrica and baclofen. PLAN: PRAVEEN: Likely multifactorial including prerenal in the setting of poor PO, with recent IV contrast during imaging, and discharged home on HCTZ, lisinopril, BID NSAIDs, baclofen, lyrica, metformin -on gentle D5W per nephrology -post void residual was wnl and making adequate urine -holding thiazide, NSAIDs, ACEi -labetalol for HTN -renal US grossly wnl with incidental cyst -strict I/Os -daily weights -nephrology consulted, f/u recs Encephalopathy i/s/o of multiple psychotropes with ongoing PRAVEEN -reduced duloxetine and dc'd AM dosing, dc'd QHS trazodone, reduced baclofen to BID from QID, stopped naltrexone and lyrica -Initiating transfer to [facility] due to visual disturbances. Will defer further imaging at this time, due to potential delay in care for transfer. Hypertensive urgency: reports having missed her meds on day of presentation. Now resolved. -CT head without bleeding or evidence of increased intracranial pressure i/s/o recent neurosurgery -continue labetalol 100 TID for now while holding thiazide and ACEi, hold for SBP <120 -2g sodium diet, with consistent carb DM: -consistent carb diet -SSI -hold metformin -hypoglycemia protocol -FSBG AC/HS Recent neurosurgery s/p pituitary adenoma resection on 05/23 c/b CSF leak s/p abdominal fat pad repair and discharged from [facility] on 05/30 -has follow up [facility] neurosurgery early next week -CT head without bleeding or ventriculomegaly with baseline neurological examination. Repeat CT head this AM was stable -BP control as noted above -zofran 4mg IV BIDP for nausea and to prevent retching Chronic pain: -Home home lyrica -Reduced baclofen from QID to BID yesterday Chronic psych diagnoses: -continue bupropion, buspar -Holding naltrexone, holding AM duloxetine dosing GERD: -continue famotidine BID Insomnia: -Discontinued home PRN trazodone PRN for now DVT ppx: TEDs and SCDs. VS,Fishbone, I+O VS, Fishbone, I+O Laboratory Tests 06/03/20 07:22 Vital Signs Date Time Temp Pulse Resp B/P (MAP) Pulse Ox O2 Delivery O2 Flow Rate FiO2 06/03/20 06:01 67 152/78 06/03/20 06:00 97.9 20 93 Nasal Cannula 2.0 I&O- Last 24 Hours up to 6 AM 06/03/20 05:59 Intake Total 1350 ml Output Total 1750 ml Balance -400 ml MITALI BABB MD Jun 03, 2020 09:10
[2020-06-03] MEDS ORDERED: BACL10TA2 PO (13:22)
[2020-06-03] MEDS ORDERED: LABE100T4 PO (13:22)
[2020-06-03 14:00] VITALS: BP 106/76
--- NOTE | 2020-06-03 15:11 | REP ---
INDICATION: ams. COMPARISON: Comparison brain CT studies are reviewed from 02 June 2020 and 01 June 2020, the 2 previous day's. Also reviewed is a comparison MRI study 13 March 2020.. TECHNIQUE: Helical scanning is acquired. 5 mm axial images were reformatted. Coronal MPR images were generated. FINDINGS: Bone window settings demonstrate vascular calcification in the carotid siphons. There is opacification of the sphenoid sinuses and ethmoid sinuses bilaterally. Partial opacification of the frontal sinuses is seen. The upper portions of this maxillary sinuses are opacified as well. No intraorbital abnormality is seen. Boles-white differentiation pattern is normal above and below the tentorium. There is no evidence of intracranial hemorrhage. No mass, extra-axial fluid collection, or midline shift is seen. Suprasellar cistern is unremarkable. IMPRESSION: Pansinusitis changes. Vascular calcification. No acute intracranial abnormality. No significant change from the comparison study of the previous day.. <Electronically signed by Lane Cralisle > 06/03/20 0861
[2020-06-03] MEDS: ACETAMINOPHEN TAB 650MG DOSE (2X325MG) PO PRN ×2 (16:08→21:42)
--- NOTE | 2020-06-03 17:02 | IPN ---
NEPHROLOGY PROGRESS NOTE DATE: 06/03/2020 SUBJECTIVE: Miss Mccracken is seen this morning at her bedside. She reports hallucinations as she has been seeing people in her room and she is aware that they do not exist. She is quite confused at times and keeps repeating the same things again and again. She denies any headache at present. The patient has non oliguric acute renal failure, probably related to intravenous contrast that she received prior to discharge from [facility]. OBJECTIVE: PHYSICAL EXAMINATION: GENERAL APPEARANCE: She has cushingoid features. VITAL SIGNS: Temperature is 97.9 degrees Fahrenheit, heart rate is 68 per minute, respiratory rate 20 per minute, blood pressure 152/78 mm of mercury and oxygen saturation is 93% on 2 liters oxygen. INTAKE AND OUTPUT: Records from yesterday show a negative fluid balance of 200 mL. Total intake was 1,350 and output 1,550 mL. HEENT: Her head is atraumatic. Face is swollen and cushingoid. NECK: Veins are difficult to be assessed, but I do not see any obvious neck vein distention. HEART: Regular. LUNGS: Clear to auscultation. ABDOMEN: Obese, soft and nontender. EXTREMITIES: Without any cyanosis or clubbing. NEUROLOGICAL: She has no focal deficits but she seems confused at times. LABORATORY STUDIES: Today's labs show a white blood cell count of 11.1, hemoglobin 8.7 and hematocrit 29.9, platelet count 431. Sodium 145, potassium 5.1, CO2 31, BUN 45 and creatinine 3.04, glucose 104 and calcium 9.3. PROBLEMS: 1. Acute kidney injury most likely she has contrast induced nephropathy. At present she does not have any uremic symptoms and I anticipate that her kidney function will improve over the next few days. There is no emergent need for dialysis at present. 2. Hypernatremia her sodium level is 147 and improved down to 145 today. She is receiving IV d5w at 50 mL per hour. I will continue for the next 24 hours as her oral intake has not been great. 3. Altered mentation with hallucinations - The patient recently had neurosurgery done and probably this is a complication related to it. I would recommend consideration for possible transfer to [facility].
[2020-06-03] MEDS: ATORVASTATIN 20 MG TAB PO SCH (20:57)
[2020-06-03] MEDS: DULoxetine 30 MG CAP (CYMBALTA) PO SCH (20:57)
[2020-06-03 22:00] VITALS: BP 115/70
[2020-06-04 02:00] VITALS: BP 131/77
[2020-06-04] MEDS: ONDANSETRON 4MG/2ML VIAL IV SCH ×3 (03:43→18:52)
[2020-06-04] MEDS: LABETALOL 100MG TAB PO SCH ×3 (05:06→22:00)
[2020-06-04] MEDS: ACETAMINOPHEN TAB 650MG DOSE (2X325MG) PO PRN ×2 (05:07→15:19)
[2020-06-04 06:40] VITALS: BP 113/59
[2020-06-04 07:31] LABS: HEMATOCRIT 29.9 % (36.0-47.0); HEMOGLOBIN 8.8 g/dl (12.0-15.5); MEAN CORPUSCULAR HEMOGLOBIN 27.6 pg (27.0-33.0); MEAN CORPUSCULAR HGB CONC 29.4 g/dl (32.0-36.5); MEAN CORPUSCULAR VOLUME 93.7 fl (80.0-96.0); PLATELET COUNT, AUTOMATED 432 10^3/uL (150-450); RED BLOOD COUNT 3.19 10^6/uL (4.00-5.40); WHITE BLOOD COUNT 10.3 10^3/uL (4.0-10.0)
[2020-06-04 07:51] LABS: CALCIUM LEVEL 9.1 MG/DL (8.5-10.1); CREATININE FOR GFR 3.14 MG/DL (0.55-1.30); GLOMERULAR FILTRATION RATE 16.4 (>51); POTASSIUM SERUM 4.3 MEQ/L (3.5-5.1)
[2020-06-04] MEDS: HumaLOG INSULIN (NovoLOG) PER UNIT SC SCH ×4 (08:49→21:00)
[2020-06-04] MEDS: buPROPion **XL** TABLET 150MG (WELLBUTRIN XL) PO SCH (08:49)
[2020-06-04] MEDS: busPIRone 10 MG TAB PO SCH ×2 (08:49→21:00)
[2020-06-04] MEDS: VITAMIN D 1,000 INTERNATIONAL UNITS TABLET PO SCH (08:50)
[2020-06-04] MEDS: NEPHRO-VIT TAB (NEPHROCAPS) PO SCH (08:50)
[2020-06-04] MEDS: BACLOFEN 10 MG TAB PO SCH ×3 (08:50→21:40)
[2020-06-04] MEDS: SENOKOT S TAB PO SCH ×2 (08:50→21:00)
[2020-06-04] MEDS: FAMOTIDINE 20 MG TAB PO SCH (08:50)
[2020-06-04] MEDS ORDERED: AUGMENTIN 500 MG TAB PO SCH (09:00)
--- NOTE | 2020-06-04 09:58 | IPN ---
PROGRESS NOTE DATE: 06/04/2020 SUBJECTIVE: Ms. Mccracken is seen this morning on her bedside. She is looking much better today compared with yesterday. Her conversation is better and she reports that hallucinations have improved. She is well aware that she was having hallucinations yesterday. Patient denies any headache, nausea or vomiting. She has no dyspnea or chest pain. She reports improved appetite and has been eating and drinking well. She also reports good urine output. PHYSICAL EXAMINATION: VITALS: Temperature 98.5 degrees Fahrenheit, heart rate 70 per minute, respiratory rate 18 per minute, blood pressure 113/59 mmHg, oxygen saturation 98% on 2 liters oxygen. INTAKE/OUTPUT: Urine output recorded as 2,000 mL yesterday. HEENT: Head is atraumatic. Neck supple and JVD difficult to be assessed. She has cushingoid facial features. LUNGS: Clear to auscultation. HEART: Sounds are regular. ABDOMEN: Obese, soft and nontender. Bowel sounds are normal. EXTREMITIES: Without any cyanosis or clubbing. NEUROLOGIC: She is improved and not as anxious as she was yesterday. She is not hallucinating anymore. She has no focal neurological deficit. LAB DATA: Today's labs show WBC 10.3, hemoglobin 8.8, hematocrit 29.9, platelets 432,000. Sodium 144, potassium 4.3, CO2 29, BUN 46, creatinine 3.14, glucose 110 and calcium 9.1. PROBLEMS: 1. Acute renal failure: Most likely related to contrast nephropathy. Kidney function seems to be leveled off and I anticipate improvement in the kidney function over the next 24 to 48 hours. Patient has good urine output and electrolytes are normal. She does not have any evidence of metabolic acidosis. At this point, we will continue to monitor her closely without any intervention. 2. Hypernatremia: Sodium level has improved and corrected. She is not receiving any I.V. fluids. Her oral intake is adequate. 3. Anemia: At this point anemia is stable and unchanged. I will watch without any intervention. I am going to hold off on Aranesp use due to risk of potential side effects as she is already having some problems with medication side effects. 4. Altered mentation: This seems to be improving and likely to resolve. I am not sure if at this point she needs to be transferred to [place] anymore.
--- NOTE | 2020-06-04 12:53 | IPNPDOC ---
Text Note Date of Service The patient was seen on 06/04/20. NOTE SUBJECTIVE: -No acute complaints -Continues to have confusion, lability, visual disturbances . No auditory hallucinations. OBJECTIVE: VITAL SIGNS: Normotensive, 97% on room air, afebrile GENERAL APPEARANCE: Cushingoid appearance, NAD HEENT: NCAT, PERRLA, EOMI, MMM CARDIOVASCULAR: RRR, no m/r/g LUNGS: CTAB, poor effort, no rales, rhonchi, wheezing ABDOMEN: Obese, normoactive sounds, soft, NTND EXTREMITIES: has chronic non pitting edema in bilateral LE, otherwise WWP NEUROLOGICAL: CN 2-12 intact, moving all extremities, 5/5 throughout PSYCHIATRIC: She is actually AOx3 when redirected, she just has intermittent confusion that she self corrects and has visual hallucinations/disturbances. LABORATORY DATA: Cr 3.14 Na 144 K 4.3 WBC 10.3 Hgb 8.8 platelets 432 Imaging: Renal US: Multiple ultrasonographic images of the right kidney show the right kidney to measure 12.8 x 6.3 x 6 cm. The renal cortical echotexture is unremarkable. There are no masses. There is good corticomedullary differentiation. There is no hydronephrosis. There are no perinephric fluid collections. Multiple ultrasonographic images of the left kidney show the left kidney to measure 12.9 x 5.6 x 6.4 cm. The renal cortical echotexture is unremarkable. There are no masses. There is good corticomedullary differentiation. There is no hydronephrosis. There are no perinephric fluid collections. In the superior pole region there is a 1.3 x 1.3 x 1 cm sized anechoic structure which exhibits posterior wall enhancement and increased through transmission. IMPRESSION: There is a simple Bosniak class 1 cyst in the superior pole of the left kidney as described above. Examination is otherwise unremarkable. Head CT: No acute bleed or acute large vessel territorial infarct. Ventricles, cisterns and sulci are within normal limits. No mass effect or midline shift. No abnormal fluid collections. The maxillary sinuses are opacified, with dense material on the right and fluid level on the left. Mastoid air cells are clear. IMPRESSION: No acute findings. [id number] sinusitis. Head CT 06/03: MICROBIOLOGY: Please see below. 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 PLAN: PRAVEEN: Likely multifactorial including prerenal in the setting of poor PO, with recent IV contrast during imaging, and discharged home on HCTZ, lisinopril, BID NSAIDs, baclofen, lyrica, metformin -on gentle D5W per nephrology -post void residual was wnl and making robust urine -holding thiazide, NSAIDs, ACEi -labetalol for HTN -renal US grossly wnl with incidental cyst -strict I/Os -daily weights -nephrology consulted Encephalopathy i/s/o of multiple psychotropes with ongoing PRAVEEN and recent neurosurgery -reduced duloxetine and dc'd AM dosing, dc'd QHS trazodone, reduced baclofen to BID from QID, stopped naltrexone and lyrica -Initiated transfer to [facility] due to visual disturbances. stable CT without acute bleed, ventriculomegaly, midline shift or masses. Does have sinusitis noted and started her on augmentin PO on 06/04 AM. Hypertensive urgency: reports having missed her meds on day of presentation. Now resolved. -CT head without bleeding or evidence of increased intracranial pressure i/s/o recent neurosurgery -continue labetalol 100 TID for now while holding thiazide and ACEi, hold for SBP <120 -2g sodium diet, with consistent carb DM: -consistent carb diet -SSI -hold metformin -hypoglycemia protocol -FSBG AC/HS Recent neurosurgery s/p pituitary adenoma resection on 05/23 c/b CSF leak s/p abdominal fat pad repair and discharged from [facility] on 05/30 -Initiated an effort to transfer her to [facility] for ongoing AMS with shreya visual disturbances -CT head without bleeding or ventriculomegaly with baseline neurological exam ination. Repeat CT head this AM was stable -BP control as noted above -zofran 4mg IV BIDP for nausea and to prevent retching Chronic pain: -Home home lyrica -Reduced baclofen from QID to BID yesterday Chronic psych diagnoses: -continue bupropion, buspar -Holding naltrexone, holding AM duloxetine dosing GERD: -continue famotidine BID Insomnia: -Discontinued home PRN trazodone PRN for now DVT ppx: TEDs and SCDs. VS,Fishbone, I+O VS, Fishbone, I+O Laboratory Tests 06/04/20 07:10 Vital Signs Date Time Temp Pulse Resp B/P (MAP) Pulse Ox O2 Delivery O2 Flow Rate FiO2 06/04/20 06:40 98.5 70 18 113/59 (77) 98 Nasal Cannula 2.0 I&O- Last 24 Hours up to 6 AM 06/04/20 06:00 Intake Total 930 ml Output Total 1200 ml Balance -270 ml MITALI BABB MD Jun 04, 2020 08:44
[2020-06-04] MEDS: LIDOCAINE 5% (LIDODERM) PATCH TD SCH (13:05)
[2020-06-04 13:58] VITALS: BP 108/56
--- NOTE | 2020-06-04 16:34 | REP ---
INDICATION: increased pain patient has a history of breast carcinoma. COMPARISON: None. TECHNIQUE: Helical scanning is acquired in 4 mm axial images were reformatted. Coronal and sagittal MPR images were generated and reviewed. FINDINGS: Preliminary digital photographer radiograph demonstrates a normal bowel gas pattern. 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 There is chronic erosive change evident in the right femoral head and chronic lateral subluxation of the right hip is evident. There is minimal linear fibrosis in the lower lobes of the lungs bilaterally. No pleural effusion or infiltrate is seen. The liver and the spleen are normal in size homogeneous in texture. No abnormality is noted in the pancreas. Normal adrenal glands are present. Gallbladder is small and contracted. There are small granular gallstones in the dependent portion the gallbladder. Kidneys are morphologically intact. No hydronephrosis or intrarenal calculus is seen. Normal caliber aorta is noted. A normal appendix is seen in the right lower quadrant. Small and large bowel loops are unremarkable in the abdomen and pelvis. No acute bony abnormality is seen. There are degenerative spondylosis changes in the lumbar spine. IMPRESSION: No acute abdominal or pelvic abnormality. Normal appendix. No urinary tract calculus or hydronephrosis seen. Status post hysterectomy. Cholelithiasis. <Electronically signed by Lane Carlisle > 06/04/20 [id number]
[2020-06-04] MEDS: CLINDAMYCIN 300 MG in IV 1 EA IV SCH ×2 (17:09→21:41)
[2020-06-04] MEDS: ATORVASTATIN 20 MG TAB PO SCH (21:00)
[2020-06-04] MEDS: **NOTE PATIENT COMMENT** MISC XX SCH (21:00)
[2020-06-04] MEDS: DULoxetine 30 MG CAP (CYMBALTA) PO SCH (21:00)
[2020-06-04] MEDS ORDERED: HALOPERIDOL 5MG/ML VIAL (J1630 PER 1) IV ONE (21:10)
[2020-06-04 22:00] VITALS: BP 117/61
[2020-06-05 02:00] VITALS: BP 118/58
[2020-06-05] MEDS: ACETAMINOPHEN TAB 650MG DOSE (2X325MG) PO PRN ×4 (03:21→22:56)
[2020-06-05] MEDS: ONDANSETRON 4MG/2ML VIAL IV SCH ×3 (03:21→21:03)
[2020-06-05] MEDS: CLINDAMYCIN 300 MG in IV 1 EA IV SCH ×4 (05:37→22:59)
[2020-06-05] MEDS: LABETALOL 100MG TAB PO SCH ×3 (06:00→22:00)
[2020-06-05 06:57] LABS: HEMATOCRIT 28.2 % (36.0-47.0); HEMOGLOBIN 8.4 g/dl (12.0-15.5); MEAN CORPUSCULAR HGB CONC 29.8 g/dl (32.0-36.5); PLATELET COUNT, AUTOMATED 444 10^3/uL (150-450)
[2020-06-05 06:58] VITALS: BP 113/67
[2020-06-05 07:15] LABS: CREATININE FOR GFR 3.62 MG/DL (0.55-1.30); GLOMERULAR FILTRATION RATE 13.9 (>51); POTASSIUM SERUM 4.2 MEQ/L (3.5-5.1)
[2020-06-05 07:16] LABS: CALCIUM LEVEL 9.5 MG/DL (8.5-10.1)
[2020-06-05] MEDS: HumaLOG INSULIN (NovoLOG) PER UNIT SC SCH ×4 (07:30→21:00)
[2020-06-05] MEDS: VITAMIN D 1,000 INTERNATIONAL UNITS TABLET PO SCH (09:03)
[2020-06-05] MEDS: BACLOFEN 10 MG TAB PO SCH ×3 (09:03→22:57)
[2020-06-05] MEDS: buPROPion **XL** TABLET 150MG (WELLBUTRIN XL) PO SCH (09:04)
[2020-06-05] MEDS: SENOKOT S TAB PO SCH ×2 (09:04→22:56)
[2020-06-05] MEDS: NEPHRO-VIT TAB (NEPHROCAPS) PO SCH (09:05)
[2020-06-05] MEDS: FAMOTIDINE 20 MG TAB PO SCH (09:06)
[2020-06-05] MEDS: busPIRone 10 MG TAB PO SCH ×2 (09:06→22:55)
[2020-06-05] MEDS: NS 0.45% 1,000 ML IV SCH ×2 (09:07→17:57)
[2020-06-05] MEDS: LIDOCAINE 5% (LIDODERM) PATCH TD SCH (09:07)
[2020-06-05 10:00] VITALS: BP 113/68
--- NOTE | 2020-06-05 10:06 | IPNPDOC ---
Text Note Date of Service The patient was seen on 06/05/20. NOTE . SUBJECTIVE: -Was confused and agitated overnight --> had 1mg haldol IV -Continues to have confusion, lability, visual hallucinations. OBJECTIVE: VITAL SIGNS: Normotensive, 97% on room air, afebrile GENERAL APPEARANCE: Cushingoid appearance, NAD HEENT: NCAT, PERRLA, EOMI, MMM CARDIOVASCULAR: RRR, no m/r/g LUNGS: CTAB, poor effort, no rales, rhonchi, wheezing ABDOMEN: Obese, normoactive sounds, soft, NTND EXTREMITIES: has chronic non pitting edema in bilateral LE, otherwise WWP NEUROLOGICAL: Squints and closes her R eye to focus, suspect diplopia compensation, CN 3-12 intact, moving all extremities, 5/5 throughout PSYCHIATRIC: She is actually AOx3 when redirected, she just has intermittent confusion that she self corrects and has visual hallucinations/disturbances. LABORATORY DATA: Cr 3.14 Na 144 K 4.3 WBC 10.3 Hgb 8.8 platelets 432 Imaging: Renal US: Multiple ultrasonographic images of the right kidney show the right kidney to measure 12.8 x 6.3 x 6 cm. The renal cortical echotexture is unremarkable. There are no masses. There is good corticomedullary differentiation. There is no hydronephrosis. There are no perinephric fluid collections. Multiple ultrasonographic images of the left kidney show the left kidney to measure 12.9 x 5.6 x 6.4 cm. The renal cortical echotexture is unremarkable. There are no masses. There is good corticomedullary differentiation. There is no hydronephrosis. There are no perinephric fluid collections. In the superior pole region there is a 1.3 x 1.3 x 1 cm sized anechoic structure which exhibits posterior wall enhancement and increased through transmission. IMPRESSION: There is a simple Bosniak class 1 cyst in the superior pole of the left kidney as described above. Examination is otherwise unremarkable. Head CT: No acute bleed or acute large vessel territorial infarct. Ventricles, cisterns and sulci are within normal limits. No mass effect or midline shift. No abnormal fluid collections. The maxillary sinuses are opacified, with dense material on the right and fluid level on the left. Mastoid air cells are clear. IMPRESSION: No acute findings. [id number] sinusitis. Head CT 06/03: MICROBIOLOGY: Please see below. 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 PLAN: PRAVEEN: Likely multifactorial including prerenal in the setting of poor PO, with recent IV contrast during imaging, and discharged home on HCTZ, lisinopril, BID NSAIDs, baclofen, lyrica, metformin -on gentle D5W per nephrology -post void residual was wnl and making robust urine -holding thiazide, NSAIDs, ACEi -labetalol for HTN -renal US grossly wnl with incidental cyst -strict I/Os -daily weights -nephrology consulted Encephalopathy i/s/o of multiple psychotropes with ongoing PRAVEEN and recent neurosurgery -reduced duloxetine and dc'd AM dosing, dc'd QHS trazodone, reduced baclofen to BID from QID, stopped naltrexone and lyrica -Initiated transfer to [facility] due to visual disturbances. stable CT without acute bleed, ventriculomegaly, midline shift or masses. Does have sinusitis noted and started her on clinda on 06/04 for sinusitis and abdominal wall connor lulitis -Spoke with [facility] endocrine --> will check random cortisol and consider hydrocortisone 20 AM and 10 PM. Also c/f diabetes insipidus postop with robust UOP with PRAVEEN while on nephrotoxic meds. Plan is for transfer to [facility] medicine with endocrine consult. Hypertensive urgency: reports having missed her meds on day of presentation. Now resolved. -CT head without bleeding or evidence of increased intracranial pressure i/s/o recent neurosurgery -continue labetalol 100 TID for now while holding thiazide and ACEi, hold for SBP <120 -2g sodium diet, with consistent carb DM: -consistent carb diet -SSI -hold metformin -hypoglycemia protocol -FSBG AC/HS Recent neurosurgery s/p pituitary adenoma resection on 05/23 c/b CSF leak s/p abdominal fat pad repair and discharged from [facility] on 05/30 -Initiated an effort to transfer her to [facility] for ongoing AMS with shreya visual disturbances -CT head without bleeding or ventriculomegaly with baseline neurological examination. Repeat CT head this AM was stable -BP control as noted above -zofran 4mg IV BIDP for nausea and to prevent retching Chronic pain: -Home home lyrica -Reduced baclofen from QID to BID yesterday Chronic psych diagnoses: -continue bupropion, buspar -Holding naltrexone, holding AM duloxetine dosing GERD: -continue famotidine BID Insomnia: -Discontinued home PRN trazodone PRN for now DVT ppx: TEDs and SCDs. VS,Fishbone, I+O VS, Fishbone, I+O Laboratory Tests 06/05/20 06:15 Vital Signs Date Time Temp Pulse Resp B/P (MAP) Pulse Ox O2 Delivery O2 Flow Rate FiO2 06/05/20 06:58 80 113/67 (82) 06/05/20 06:00 97.0 16 94 Nasal Cannula 2.0 I&O- Last 24 Hours up to 6 AM 06/05/20 06:00 Intake Total 1390 ml Output Total 2450 ml Balance -1060 ml MITALI BABB MD Jun 05, 2020 09:07
--- NOTE | 2020-06-05 10:36 | IPN ---
PROGRESS NOTE DATE: 06/05/2020 SUBJECTIVE: Ms. Mccracken is seen this morning on her bedside. The nursing staff reports that she was more confused and agitated through the night and required some Haldol. This morning she seems to be calm but still confused. She has not been eating or drinking much. The nursing staff reports that she has been incontinent at times of her urine. OBJECTIVE: VITAL SIGNS: Temperature 97 degrees Fahrenheit, heart rate is 80 per minute and respiratory rate 16 per minute. Blood pressure 113/67 mmHg and oxygen saturation 94%. INTAKE AND OUTPUT: Intake and output records from yesterday shows a negative fluid balance of 500 ml. HEAD AND NECK: Her head is Cushingoid. Neck veins are difficult to be assessed. HEART: Regular. LUNGS: Clear to auscultation. ABDOMEN: Soft and nontender. EXTREMITIES: Without any cyanosis or clubbing. NEUROLOGIC: She remains confused at times but able to talk. LABORATORY DATA: WBC count is 11.0, hemoglobin is 8.4 and hematocrit 28.2. Sodium is 145. Potassium is 4.2, CO2 28, BUN 45, creatinine is 3.62. Glucose is 117. Calcium 9.5. PROBLEMS: 1. Acute renal failure, probably she has acute kidney injury related to contrast induced nephropathy. She has been urinating well and seems to be in negative fluid balance. Now, her oral intake is decreased and will start with IV fluid half normal saline at 100 ml/hour. I have also advised the nursing staff to place a Casey catheter for monitoring of her urine output. 2. Altered mentation, most likely this is not the result of renal failure and more likely related to her neurosurgical intervention and medications. 3. Anemia, her anemia is slightly worse, probably related to acute renal failure. No active bleeding has been noticed. CBC should be monitored on a daily basis. 4. Pituitary adenoma, status post neurosurgery. The patient is waiting for a transfer back to [facility] for evaluation of her altered mentation postoperatively.
[2020-06-05 14:00] VITALS: BP 142/60
--- NOTE | 2020-06-05 19:43 | DS.PDOC ---
Discharge Summary General Date of Admission Jun 01, 2020 at 08:46 Date of Discharge 06/06/20 Attending Physician: MITALI BABB MD Specialist/Consultants Involve Dr. Ramona [facility] Discharge Summary PROCEDURES PERFORMED DURING STAY: None ADMITTING DIAGNOSES: PRAVEEN Hypertensive urgency DISCHARGE DIAGNOSES: PRAVEEN 2/2 JENN vs DI Hypertensive urgency Sinusitis Metabolic encephalopathy unclear etiology at this time given recent neurosurgery vs. multiple psychotropes i/s/o PRAVEEN Abdominal wall mild cellulitis Chronic Hypertension. Hypercholesterolemia. Depression. Arthritis. Non-insulin dependent diabetes type 2. 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 HOSPITAL COURSE: In the ED presentation BP was SBP 179 and she reported not having taken her home meds and she was given her lisinopril 40mg and HCTZ 25mg after which lab evaluat ion showed an PRAVEEN with Cr elevated to 2.66 from prior 0.68 on 04/27/2020 with a BUN of 45, Hgb 9.1, CBC 10.7, platelets 407, Na 144, K 4.5, Ca 10.4, and a head CT did not show any evidence of bleeding or ventriculomegaly. Her PRAVEEN was noted to have been in the setting of recent IV contrast while at [facility], poor PO and continuation of thiazide diuretic, ACEi, BID NSAID, metformin, lyrica and baclofen. She was admitted to medicine for hypertensive urgency and PRAVEEN and nephrology was consulted. While on medicine her course was c/b acute visual disturbances that she was aware of and confusion, with a stable neuro exam. She had repeat head CTs on 06/02 and 06/03 that were stable without bleeding, damaris triculomegaly or any other noted acute pathology except for pansinusitis changes and she was started on clindamycin as she was also noted to have mild lower abdominal erythema at sight of recent abdominal fat bad extraction for CSF leak repair. She also had a renal US that was grossly wnl without obstructive pathology and she had a CT A/P that was also wnl. Nephrology recommended some gentle fluids for her ATN with robust urine output but unfortunately BUN and Cr continue to rise at this time. Her course was c/b acute visual disturbances and later shreya encephalopathy with confusion. I called [facility] for transfer back to neurosurgery with medicine consult and they did not have a medical bed. They did put me through to neurosurgery who recommended transfer for acute medical management with endocrinology onboard which we do not have in house at [facility]. She is therefore she is [facility] under the care of Dr.Gurpreet Kitchen (Hospitalist). She will need to be evaluated by a Neurosurgeon and an Education And Training Coordinator. DISCHARGE MEDICATIONS: Please see below. ALLERGIES: Please see below. PHYSICAL EXAMINATION ON DISCHARGE: VITAL SIGNS: Normotensive, 97% on 2L, afebrile GENERAL APPEARANCE: Cushingoid appearance, NAD HEENT: NCAT, PERRLA, EOMI, MMM CARDIOVASCULAR: RRR, no m/r/g LUNGS: CTAB, poor effort, no rales, rhonchi, wheezing ABDOMEN: Obese, normoactive sounds, soft, NTND EXTREMITIES: has chronic non pitting edema in bilateral LE, otherwise WWP NEUROLOGICAL: CN 2-12 intact, moving all extremities, 5/5 throughout PSYCHIATRIC: She is actually AOx3 when redirected, she just has intermittent confusion that she self corrects and has visual hallucinations/disturbances. LABORATORY DATA: see below Imaging: Renal US: Multiple ultrasonographic images of the right kidney show the right kidney to measure 12.8 x 6.3 x 6 cm. The renal cortical echotexture is unremarkable. There are no masses. There is good corticomedullary differentiation. There is no hydronephrosis. There are no perinephric fluid collections. Multiple ultrasonographic images of the left kidney show the left kidney to measure 12.9 x 5.6 x 6.4 cm. The renal cortical echotexture is unremarkable. There are no masses. There is good corticomedullary differentiation. There is no hydronephrosis. There are no perinephric fluid collections. In the superior pole region there is a 1.3 x 1.3 x 1 cm sized anechoic structure which exhibits posterior wall enhancement and increased through transmission. IMPRESSION: There is a simple Bosniak class 1 cyst in the superior pole of the left kidney as described above. Examination is otherwise unremarkable. Admission 06/[address]: No acute bleed or acute large vessel territorial infarct. Ventricles, cisterns and sulci are within normal limits. No mass effect or midline shift. No abnormal fluid collections. The maxillary sinuses are opacified, with dense material on the right and fluid level on the left. Mastoid air cells are clear. IMPRESSION: No acute findings. [id number] sinusitis. Head CT 06/02: No acute bleed or acute large vessel territorial infarct. Ventricles, cisterns and sulci are within normal limits. No mass effect or midline shift. No abnormal fluid collections. Dense material opacifies the right maxillary sinus. A fluid level is seen on the left. IMPRESSION: No acute intracranial findings. Acute on chronic sinusitis. 06/02 CXR: The technique utilized in obtaining the radiograph has magnified the cardiac silhouette and accentuated the interstitial markings. The cardiomediastinal silhouette is essentially unchanged. The heart is not enlarged. There is thoracic aortic tortuosity status quo. Two discoid opacities are seen in the left lower lobe. The lung mark are hypo expanded. There are no patchy opacities or pleural effusions. There is no change in the osseous structures. IMPRESSION: There is discoid subsegmental atelectasis in the left lower lobe. 06/03 CT head: Bone window settings demonstrate vascular calcification in the carotid siphons. There is opacification of the sphenoid sinuses and ethmoid sinuses bilaterally. Partial opacification of the frontal sinuses is seen. The upper portions of this maxillary sinuses are opacified as well. No intraorbital abnormality is seen. Boles-white differentiation pattern is normal above and below the tentorium. There is no evidence of intracranial hemorrhage. No mass, extra-axial fluid collection, or midline shift is seen. Suprasellar cistern is unremarkable. IMPRESSION: Pansinusitis changes. Vascular calcification. No acute intracranial abnormality. No significant change from the comparison study of the previous day PROGNOSIS: Good ACTIVITY: As tolerated DIET: 2g sodium,consistent carb DISCHARGE PLAN: [facility] under the Hospitalist service DISPOSITION: Transfer to [facility] DISCHARGE INSTRUCTIONS: Transfer to [facility] hospitalist service ITEMS TO FOLLOWUP ON ON OUTPATIENT: Encephalopathy Post recent pituitary microadenoma resection follow up PRAVEEN DISCHARGE CONDITION: Stable TIME SPENT ON DISCHARGE: 75 minutes. Vital Signs/I&Os Vital Signs Date Time Temp Pulse Resp B/P (MAP) Pulse Ox O2 Delivery O2 Flow Rate FiO2 06/05/20 06:58 80 113/67 (82) 06/05/20 06:00 97.0 16 94 Nasal Cannula 2.0 I&O- Last 24 Hours up to 6 AM 06/05/20 06:00 Intake Total 1390 ml Output Total 2450 ml Balance -1060 ml Laboratory Data Labs 24H Laboratory Tests 2 06/04/20 11:59: Bedside Glucose (Misc Panel) 103 06/04/20 16:50: Bedside Glucose (Misc Panel) 138H 06/04/20 20:49: Bedside Glucose (Misc Panel) 142H 06/05/20 06:15: Nucleated Red Blood Cells % (auto) 0.0, Anion Gap 7L, Glomerular Filtration Rate 13.9L, Calcium Level 9.5 CBC/BMP Laboratory Tests 06/05/20 06:15 FSBS Laboratory Tests Test 06/04/20 11:59 06/04/20 16:50 06/04/20 20:49 Range/Units Bedside Glucose (Misc Panel) 103 138 142 70-105 MG/DL Microbiology Microbiology 06/01/20 Respiratory Virus Panel (PCR) (UZAIR) - Final, Complete Discharge Medications Scheduled Acetaminophen with Codeine (Acetaminophen-Cod #3 Tablet) 1 Each Tablet, 1 TAB PO BID, (Reported) Atorvastatin Calcium (Atorvastatin Calcium) 80 Mg Tab, 80 MG PO QHS, (Reported) Baclofen (Baclofen) 10 Mg Tab, 10 MG PO BID Bupropion Hcl (Bupropion Xl) 150 Mg Tab.er.24h, 150 MG PO DAILY, (Reported) Buspirone HCl (Buspirone HCl) 30 Mg Tablet, 30 MG PO BID, (Reported) Calcium Carbonate/Vitamin D3 (Calcium 500-Vit D3 400 Tablet) 1 Each Tablet, 1 TAB PO BID, (Reported) Cholecalciferol (Vitamin D3) (Vitamin D3) 1,000 Unit Tablet, 1,000 UNITS PO EDGARDO LY, (Reported) Cider Vinegar (Apple Cider Vinegar) 600 Mg Capsule, 1,200 MG PO DAILY, (Reported) Dulaglutide (Trulicity) 1.5 Mg/0.5 Ml Pen.injctr, 1.5 MG SC QWEEK, (Reported) SUNDAYS Duloxetine Hcl (Duloxetine HCl) 30 Mg Capsule.dr, 30 MG PO QHS, (Reported) Famotidine (Famotidine) 20 Mg Tablet, 20 MG PO BID, (Reported) Labetalol HCl (Labetalol HCl) 100 Mg Tablet, 100 MG PO Q8H Vitamin B Complex/Folic Acid (B-Complex Tablet) 0.4 Mg Tablet, 1 TAB PO DAILY, (Reported) Allergies Coded Allergies: Sulfa (Sulfonamide Antibiotics) (Verified Adverse Reaction, Mild, n/v, 10/19/19) codeine (Verified Adverse Reaction, Mild, N/V, 06/01/20) Attending Note Attending Note I assisted with the transfer process; the patient's transfer was initiated on 06/05/20 but she was transported on 06/06/20 MITALI BABB MD Jun 05, 2020 08:50 NEVA HOFFMAN MD Jun 05, 2020 19:55
[2020-06-05] MEDS: **NOTE PATIENT COMMENT** MISC XX SCH (21:00)
[2020-06-05 21:34] VITALS: BP 113/64
[2020-06-05 22:11] LABS: RSV AMPLIFICATION NEGATIVE (NEGATIVE)
[2020-06-05] MEDS: ATORVASTATIN 20 MG TAB PO SCH (22:56)
[2020-06-05] MEDS: DULoxetine 30 MG CAP (CYMBALTA) PO SCH (22:57)
[2020-06-06] MEDS: NS 0.45% 1,000 ML IV SCH ×2 (05:24→14:41)
[2020-06-06] MEDS: CLINDAMYCIN 300 MG in IV 1 EA IV SCH ×2 (05:24→12:28)
[2020-06-06] MEDS: ONDANSETRON 4MG/2ML VIAL IV SCH ×3 (05:24→20:37)
[2020-06-06] MEDS: LABETALOL 100MG TAB PO SCH ×3 (05:34→21:44)
[2020-06-06 06:00] VITALS: BP 131/75
[2020-06-06 06:51] LABS: HEMATOCRIT 29.2 % (36.0-47.0); HEMOGLOBIN 8.4 g/dl (12.0-15.5); MEAN CORPUSCULAR HEMOGLOBIN 27.5 pg (27.0-33.0); MEAN CORPUSCULAR HGB CONC 28.8 g/dl (32.0-36.5); MEAN CORPUSCULAR VOLUME 95.7 fl (80.0-96.0); PLATELET COUNT, AUTOMATED 411 10^3/uL (150-450); RED BLOOD COUNT 3.05 10^6/uL (4.00-5.40)
[2020-06-06 07:18] LABS: CALCIUM LEVEL 9.4 MG/DL (8.5-10.1); CREATININE FOR GFR 3.38 MG/DL (0.55-1.30); POTASSIUM SERUM 4.7 MEQ/L (3.5-5.1)
[2020-06-06] MEDS: HumaLOG INSULIN (NovoLOG) PER UNIT SC SCH ×4 (09:27→21:00)
[2020-06-06] MEDS: VITAMIN D 1,000 INTERNATIONAL UNITS TABLET PO SCH (09:28)
[2020-06-06] MEDS: SENOKOT S TAB PO SCH ×2 (09:29→21:44)
[2020-06-06] MEDS: ACETAMINOPHEN TAB 650MG DOSE (2X325MG) PO PRN ×3 (09:29→21:44)
[2020-06-06] MEDS: NEPHRO-VIT TAB (NEPHROCAPS) PO SCH (09:30)
[2020-06-06] MEDS: busPIRone 10 MG TAB PO SCH ×2 (09:31→21:44)
[2020-06-06] MEDS: buPROPion **XL** TABLET 150MG (WELLBUTRIN XL) PO SCH (09:31)
[2020-06-06] MEDS: FAMOTIDINE 20 MG TAB PO SCH (09:32)
[2020-06-06] MEDS: BACLOFEN 10 MG TAB PO SCH ×3 (09:33→21:44)
[2020-06-06] MEDS: LIDOCAINE 5% (LIDODERM) PATCH TD SCH (09:33)
[2020-06-06 10:45] LABS: FREE T3 2.5 PG/ML (2.2-4.0); FREE T4 1.31 NG/DL (0.76-1.46); THYROID STIMULATING HORMONE 0.519 uIU/ML (0.358-3.740)
--- NOTE | 2020-06-06 11:57 | IPN ---
PROGRESS NOTE DATE: 06/06/2020 SUBJECTIVE: Ms. Mccracken is seen this morning on her bedside. She is sitting in the chair today and is much more alert and talkative. She denies dyspnea or chest pain. Yesterday, I.V. fluid was started due to decreased oral intake and worsening kidney function. She has good urine output. She is tolerating intravenous fluid very well. PHYSICAL EXAMINATION: VITAL SIGNS: Temperature 97.9 degrees Fahrenheit, heart rate 70 per minute, respiratory rate 18 per minute, blood pressure 131/75 mmHg, oxygen saturation 96% on 2 liters oxygen. INTAKE/OUTPUT: Records from yesterday showed total intake 1,890 and output 2,600 with a negative fluid balance of 710. It is important to note that for the last four days she has been in negative fluid balance every day. HEENT: She has cushingoid features. Neck veins are not abnormally distended. LUNGS: Clear to auscultation. HEART: Sounds are regular. ABDOMEN: Obese, soft and nontender. Bowel sounds are normal. EXTREMITIES: Without any cyanosis or clubbing. NEUROLOGIC: She has no focal deficit, but at times she gets somewhat confused and disoriented. LABORATORY DATA: Today's labs show WBC 9.0, hemoglobin 8.4, hematocrit 29.2. Sodium 145, potassium 4.7, CO2 30, BUN 42, creatinine 3.38, glucose 115 and calcium 9.4. TSH level 0.519, free T4 1.31 and free T3 2.5. Yesterday her cortisol level was 12. PROBLEMS: 1. Acute kidney injury: Most likely this is related to contrast induced nephropathy. She was also in negative fluid balance for a few days. Kidney function seems to be starting to improve and we will continue with I.V. fluid at 100 mL per hour in order to catch up with her fluid . No need for dialysis at this point. Her electrolytes are stable. 2. Anemia: No climate change analyst the last 24 hours. Overall, she has been stable and no need for a transfusion at this point. 3. Altered mentation: She did have periods of altered mentation and there is a concern about the possibility of neurological issues. There is a plan for possible transfer to higher level of care, possibly in [place] or [place].
--- NOTE | 2020-06-06 12:48 | IPNPDOC ---
Text Note Date of Service The patient was seen on 06/06/20. 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 Patient has been admitted to the hospital service for further evaluation and treatment. Nephrology has been called on consultation. Patient was seen and examined at the bedside. Patient is currently sitting up in bed, conversing appropriately. Denies any headache, nausea, vomiting, chest pain, shortness of breath or palpitations. Reports that her blurriness of her vision has had some improvement. Has any abdominal pain, or urinary discomfort. Objective: Vitals (See below) General: Lying in bed, no acute distress, comfortable, AAOx3; White person, place, time and president HEENT: NC, AT CVS: RRR, +S1S2 Lungs: Fair air entry b/l, -w/r/r Abdomen: Soft, ND, NT Extremities: Trace LE edema, - Calf tenderness Imaging: Renal US 06/01: There is a simple Bosniak class 1 cyst in the superior pole of the left kidney as described above. Examination is otherwise unremarkable. Head CT 06/01 No acute findings. Nnrui-ox-cvioxhu sinusitis. Head CT 06/02: No acute intracranial findings. Acute on chronic sinusitis. CXR 06/02: There is discoid subsegmental atelectasis in the left lower lobe. Head CT 06/03: Pansinusitis changes. Vascular calcification. No acute intracranial abnormality. No significant change from the comparison study of the previous day.. CT abd/pelvis 06/04: No acute abdominal or pelvic abnormality. Normal appendix. No urinary tract calculus or hydronephrosis seen. Status post hysterectomy. Cholelithiasis. Assessment and plan: PRAVEEN - likely multifactorial - 2/2 prerenal in the setting of poor PO, possibly 2/2 intrarenal 2/2 recent IV contrast during imaging, and discharged home on HCTZ, lisinopril, BID NSAIDs, baclofen, lyrica, metformin - Renal function continues to improve - Imaging noted above - Will avoid nephrotoxic medications - Nephrology on consultation; c/w IV fluid hydration Encephalopathy - possibly 2/2 multiple psychiatric medications with ongoing PRAVEEN and recent neurosurgery - Patient is currently oriented to person, place, time, president - Again no focal neurologic deficits - Duloxetine and Baclofen dose has been reduced / Trazodone + Naltrexone + Pregabalin discontinued - Imaging suggesting sinusitis; c/w Clindamycin - Will get MRI brain - Awaiting transition to [place] for neurosurgery Recent neurosurgery s/p pituitary adenoma resection on 05/23 - Complicated by CSF leak s/p abdominal fat pad repair and discharged from [place] on 05/30 - Initiated an effort to transfer her to [place] for ongoing AMS with shreya visual disturbances - BP well controlled - No focal neurologic deficits - Cortisol level noted - Imaging noted above - Will check thyroid function - Patient is currently awaiting transfer to [place] for neurosurgery and endocrinology evaluation Hypertensive urgency - Patient reports that she had missed medications. On the date of arrival - Imaging noted above - Will hold Thiazides / YIMI-I - c/w Labetalol NIDDM2 - c/w ISS Chronic pain - s/p Lyrica - c/w reduced dose of baclofen from QID to BID yesterday Chronic psych diagnoses: - c/w bupropion, buspirone - c/w reduced dose of Duloxetine - Will continue to hold naltrexone Insomnia - s/p Trazodone for now GERD: - c/w Famotidine DVT prophylaxis - c/w TEDs/Sequentials Disposition: - Awaiting transition to [place] for neurosurgery/endocrinology evaluation VS,Ashok, I+O VS, Ashok, I+O Laboratory Tests 06/06/20 06:05 Vital Signs Date Time Temp Pulse Resp B/P (MAP) Pulse Ox O2 Delivery O2 Flow Rate FiO2 06/06/20 06:57 2.0 06/06/20 06:00 97.9 70 18 131/75 (93) 96 Nasal Cannula I&O- Last 24 Hours up to 6 AM 06/06/20 06:00 Intake Total 1590 ml Output Total 1800 ml Balance -210 ml CIELO HAHN MD Jun 06, 2020 12:48
[2020-06-06 14:37] VITALS: BP 144/95
[2020-06-06] MEDS: CLINDAMYCIN 150MG CAPSULE PO SCH ×2 (17:26→21:43)
--- NOTE | 2020-06-06 21:04 | REPVR ---
PROCEDURE INFORMATION: Exam: MR Head Without Contrast Exam date and time: 06/06/2020 8:29 PM Age: 54 years old Clinical indication: Other: Blurred vision; Prior surgery; Surgery date: 1-6 months TECHNIQUE: Imaging protocol: MR of the head without contrast. COMPARISON: MRI-Brain W/O FOLL BY WITH 03/13/2020 2:09 PM FINDINGS: Brain: No restricted diffusion within the brain to suggest an acute infarct. There are scattered foci of FLAIR hyperintensity within the cerebral white matter, with a few small foci of T2 hyperintensity within the gilberto. There is no mass effect or restricted diffusion associated with these foci. This white matter disease is nonspecific as to etiology. Possible etiologies include chronic small vessel ischemic disease, foci of demyelination, post-traumatic change, and migraine headaches, as well as additional infectious, inflammatory and autoimmune etiologies. Mild age-appropriate prominence of the sulci. Artifact limits the axial T2 gradient echo sequence. Cerebral ventricles: No ventriculomegaly. Bones/joints: See below. Paranasal sinuses: Effusions are identified within the paranasal sinuses diffusely, with a progression of paranasal sinus disease compared to the previous MRI. Postoperative changes are identified involving the nasal cavity, the sphenoid sinuses and posterior ethmoid air cells, with probable postoperative changes involving the sella. T1 hyperintensity is identified in this region, likely due to postoperative change and fat packing. A hemorrhagic component cannot be excluded. Additional swelling is seen within the nasal cavity. Mastoid air cells: Mucosal thickening/effusions within the mastoid air cells bilaterally. Orbital cavity: Bilateral proptosis. Soft tissues: Unremarkable, as visualized. Vertebral arteries: Mild irregular contour of the V4 segment the right vertebral artery, similar to the prior study. IMPRESSION: 1. No acute infarct. 2. Bilateral proptosis again visualized. 3. Postoperative changes are identified involving the nasal cavity, the sphenoid sinuses and posterior ethmoid air cells, with probable postoperative changes involving the sella. T1 hyperintensity is identified in this region, likely due to postoperative change and fat packing. A hemorrhagic component cannot be excluded. These findings are new compared to the prior MRI. Clinical correlation recommended. 4. There are scattered foci of FLAIR hyperintensity within the cerebral white matter, with a few small foci of T2 hyperintensity within the gilbetro. This white matter disease is nonspecific as to etiology, as detailed above. 5. Paranasal sinus disease. 6. Mucosal thickening/effusions within the mastoid air cells bilaterally. Electronically signed by: Thierry Perdomo On 06/06/2020 21:04:34 PM
[2020-06-06] MEDS: DULoxetine 30 MG CAP (CYMBALTA) PO SCH (21:43)
[2020-06-06] MEDS: ATORVASTATIN 20 MG TAB PO SCH (21:43)
[2020-06-06 21:44] VITALS: BP 169/91
[2020-06-06] MEDS: **NOTE PATIENT COMMENT** MISC XX SCH (21:45)
[2020-06-06 23:10] VITALS: BP 97/65
[2020-06-06 23:15] VITALS: BP 102/60
--- NOTE | 2020-06-07 13:26 | DS.PDOC ---
Discharge Summary General Date of Admission Jun 01, 2020 at 08:46 Date of Discharge 06/06/2020 Discharge Summary PROCEDURES PERFORMED DURING STAY: [None]. ADMITTING DIAGNOSES / DISCHARGE DIAGNOSES: PRAVEEN - likely multifactorial - 2/2 prerenal in the setting of poor PO, possibly 2/2 intrarenal 2/2 recent IV contrast /; medications Encephalopathy - possibly 2/2 multiple psychiatric medications with ongoing PRAVEEN and recent neurosurgery Recent neurosurgery s/p pituitary adenoma resection on 05/23 Hypertensive urgency NIDDM2 Chronic pain Chronic psych diagnoses Insomnia GERD DVT prophylaxis COMPLICATIONS/CHIEF COMPLAINT: Weakness HTN HISTORY OF PRESENT ILLNESS / HOSPITAL COURSE: Patient is a 54-year-old female with a PMHx of NIDDM2, HTN, DLP, Depression, 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 Patient has been admitted to the hospital service for further evaluation and treatment. Nephrology has been called on consultation. She remained in hospital for an additional day in order to have bed availability at [facility]. Please see discharge summary from day prior. Patient had an MRI of her brain completed that suggested the possibility of bleed; she was transferred to neuro surgery capable facility at [facility] within the hour. DISCHARGE MEDICATIONS: Please see below. ALLERGIES: Please see below. LABORATORY DATA: Please see below. IMAGING: Renal US 06/01: There is a simple Bosniak class 1 cyst in the superior pole of the left kidney as described above. Examination is otherwise unremarkable. Head CT 06/01 No acute findings. [id number] sinusitis. Head CT 06/02: No acute intracranial findings. Acute on chronic sinusitis. CXR 06/02: There is discoid subsegmental atelectasis in the left lower lobe. Head CT 06/03: Pansinusitis changes. Vascular calcification. No acute intracranial abnormality. No significant change from the comparison study of the previous day.. CT abd/pelvis 06/04: No acute abdominal or pelvic abnormality. Normal appendix. No urinary tract calculus or hydronephrosis seen. Status post hysterectomy. Cholelithiasis. MRI brain 06/06: 1. No acute infarct. 2. Bilateral proptosis again visualized. 3. Postoperative changes are identified involving the nasal cavity, the sphenoid sinuses and posterior ethmoid air cells, with probable postoperative changes involving the sella. T1 hyperintensity is identified in this region, likely due to postoperative change and fat packing. A hemorrhagic component cannot be excluded. These findings are new compared to the prior MRI. Clinical correlation recommended. 4. There are scattered foci of FLAIR hyperintensity within the cerebral white matter, with a few small foci of T2 hyperintensity within the gilberto. This white matter disease is nonspecific as to etiology, as detailed above. 5. Paranasal sinus disease. 6. Mucosal thickening/effusions within the mastoid air cells bilaterally. ACTIVITY: [As tolerated]. DISCHARGE PLAN: Follow up with Neurosurgery / Endocrinology on transfer to [facility] Remain compliant with treatment plan and medications Return to the ER if you experience any problems DISPOSITION: Transfer to [facility] DISCHARGE CONDITION: [Stable]. Vital Signs/I&Os Vital Signs Date Time Temp Pulse Resp B/P (MAP) Pulse Ox O2 Delivery O2 Flow Rate FiO2 06/06/20 23:44 1.0 06/06/20 23:15 102/60 (74) 06/06/20 23:10 96.5 71 20 95 Nasal Cannula I&O- Last 24 Hours up to 6 AM 06/07/20 06:00 Intake Total 3720 ml Output Total 3400 ml Balance 320 ml Laboratory Data Labs 24H Laboratory Tests 2 06/06/20 16:48: Bedside Glucose (Misc Panel) 96 06/06/20 20:51: Bedside Glucose (Misc Panel) 75 FSBS Laboratory Tests Test 06/06/20 16:48 06/06/20 20:51 Range/Units Bedside Glucose (Misc Panel) 96 75 70-105 MG/DL Microbiology Microbiology 06/01/20 Respiratory Virus Panel (PCR) (UZAIR) - Final, Complete Discharge Medications Scheduled Acetaminophen with Codeine (Acetaminophen-Cod #3 Tablet) 1 Each Tablet, 1 TAB PO BID, (Reported) Atorvastatin Calcium (Atorvastatin Calcium) 80 Mg Tab, 80 MG PO QHS, (Reported) Baclofen (Baclofen) 10 Mg Tab, 10 MG PO BID Bupropion Hcl (Bupropion Xl) 150 Mg Tab.er.24h, 150 MG PO DAILY, (Reported) Buspirone HCl (Buspirone HCl) 30 Mg Tablet, 30 MG PO BID, (Reported) Calcium Carbonate/Vitamin D3 (Calcium 500-Vit D3 400 Tablet) 1 Each Tablet, 1 TAB PO BID, (Reported) Cholecalciferol (Vitamin D3) (Vitamin D3) 1,000 Unit Tablet, 1,000 UNITS PO DAILY, (Reported) Cider Vinegar (Apple Cider Vinegar) 600 Mg Capsule, 1,200 MG PO DAILY, (Reported) Dulaglutide (Trulicity) 1.5 Mg/0.5 Ml Pen.injctr, 1.5 MG SC QWEEK, (Reported) SUNDAYS Duloxetine Hcl (Duloxetine HCl) 30 Mg Capsule.dr, 30 MG PO QHS, (Reported) Famotidine (Famotidine) 20 Mg Tablet, 20 MG PO BID, (Reported) Labetalol HCl (Labetalol HCl) 100 Mg Tablet, 100 MG PO Q8H Vitamin B Complex/Folic Acid (B-Complex Tablet) 0.4 Mg Tablet, 1 TAB PO DAILY, (Reported) Allergies Coded Allergies: Sulfa (Sulfonamide Antibiotics) (Verified Adverse Reaction, Mild, n/v, 10/19/19) codeine (Verified Adverse Reaction, Mild, N/V, 06/01/20) CIELO HAHN MD Jun 07, 2020 13:26
== END 2020-06-06 23:47 | disposition short-term general hospital (02) | DRG 682 ==
LOC: M ED 05:51 → M ED INP 08:46 → ENRESERV 09:45 → M MS5PR 12:56
PROVIDERS: ADMIT Internal Medicine; ATTEND Internal Medicine
DX: N17.9 Acute kidney failure, unspecified (principal); G92 Toxic encephalopathy; E24.0 Pituitary-dependent Cushing's disease; E87.0 Hyperosmolality and hypernatremia; Z68.43 Body mass index [BMI] 50.0-59.9, adult; I16.0 Hypertensive urgency; E66.01 Morbid (severe) obesity due to excess calories; E11.40 Type 2 diabetes mellitus with diabetic neuropathy, unspecified; F32.9 Major depressive disorder, single episode, unspecified; R53.1 Weakness; E78.00 Pure hypercholesterolemia, unspecified; E83.52 Hypercalcemia; G89.29 Other chronic pain; T43.505A Adverse effect of unspecified antipsychotics and neuroleptics, initial encounter; K21.9 Gastro-esophageal reflux disease without esophagitis; G47.00 Insomnia, unspecified; Z79.899 Other long term (current) drug therapy; Z88.2 Allergy status to sulfonamides; Z88.5 Allergy status to narcotic agent; Z79.84 Long term (current) use of oral hypoglycemic drugs; Z96.642 Presence of left artificial hip joint

== ENCOUNTER → 2020-07-19 | Outpatient (REF) | payer MEDICARE ==
[~2020-07-19] MED LIST changes: +ACET1TAB16 PO; +APPLCAP PO; +B-COTAB10 PO; +BUPR150T12 PO; +BUSP30TA PO; +CALC500T25 PO; +CELE1CAP4 PO; +D31000TA2 PO; +DULO1CAP5 PO; +DULO60CA35 PO; +FAMO20TA PO; +FAMO40TA3 PO; +LABE100T4 PO; +LISI40TA4 PO; +PREG50CA PO; +TRUL0.5I SC
== END ==
PROVIDERS: ATTEND Internal Medicine
DX: E24.9 Cushing's syndrome, unspecified (principal); Z53.8 Procedure and treatment not carried out for other reasons

== ENCOUNTER → 2020-07-25 | Outpatient (REF) | payer MEDICARE ==
[2020-07-25 11:02] LABS: HEMATOCRIT 37.6 % (36.0-47.0); HEMOGLOBIN 10.8 g/dl (12.0-15.5); MEAN CORPUSCULAR HEMOGLOBIN 25.6 pg (27.0-33.0); MEAN CORPUSCULAR HGB CONC 28.7 g/dl (32.0-36.5); MEAN CORPUSCULAR VOLUME 89.1 fl (80.0-96.0); PLATELET COUNT, AUTOMATED 492 10^3/uL (150-450); RED BLOOD COUNT 4.22 10^6/uL (4.00-5.40); WHITE BLOOD COUNT 10.9 10^3/uL (4.0-10.0)
[2020-07-25 11:29] LABS: BLOOD UREA NITROGEN 8 MG/DL (7-18); CALCIUM LEVEL 9.7 MG/DL (8.5-10.1); CARBON DIOXIDE LEVEL 27 MEQ/L (21-32); CHLORIDE LEVEL 108 MEQ/L (98-107); CREATININE FOR GFR 0.59 MG/DL (0.55-1.30); GLOMERULAR FILTRATION RATE > 60.0 (>51); GLUCOSE, FASTING 70 MG/DL (70-100); POTASSIUM SERUM 3.6 MEQ/L (3.5-5.1); SODIUM LEVEL 145 MEQ/L (136-145)
== END ==
PROVIDERS: ATTEND Internal Medicine
DX: E24.9 Cushing's syndrome, unspecified (principal)

== ENCOUNTER → 2020-08-02 | Outpatient (REF) | payer MEDICARE ==
[2020-08-02 10:05] LABS: HEMATOCRIT 36.8 % (36.0-47.0); HEMOGLOBIN 10.6 g/dl (12.0-15.5); MEAN CORPUSCULAR HEMOGLOBIN 25.4 pg (27.0-33.0); MEAN CORPUSCULAR HGB CONC 28.8 g/dl (32.0-36.5); MEAN CORPUSCULAR VOLUME 88.2 fl (80.0-96.0); PLATELET COUNT, AUTOMATED 476 10^3/uL (150-450); RED BLOOD COUNT 4.17 10^6/uL (4.00-5.40); WHITE BLOOD COUNT 10.1 10^3/uL (4.0-10.0)
[2020-08-02 10:24] LABS: BLOOD UREA NITROGEN 6 MG/DL (7-18); CALCIUM LEVEL 9.3 MG/DL (8.5-10.1); CARBON DIOXIDE LEVEL 28 MEQ/L (21-32); CHLORIDE LEVEL 109 MEQ/L (98-107); CREATININE FOR GFR 0.75 MG/DL (0.55-1.30); GLOMERULAR FILTRATION RATE > 60.0 (>51); GLUCOSE, FASTING 94 MG/DL (70-100); POTASSIUM SERUM 3.6 MEQ/L (3.5-5.1); SODIUM LEVEL 144 MEQ/L (136-145)
== END ==
PROVIDERS: ATTEND Internal Medicine
DX: E24.9 Cushing's syndrome, unspecified (principal)

== ENCOUNTER → 2020-08-16 | Outpatient (REF) | payer MEDICARE ==
[2020-08-16 18:18] LABS: HEMOGLOBIN A1c 5.5 %
[2020-08-16 19:26] LABS: ALT/SGPT 21 U/L (12-78); BLOOD UREA NITROGEN 14 MG/DL (7-18); CALCIUM LEVEL 9.1 MG/DL (8.5-10.1); CARBON DIOXIDE LEVEL 27 MEQ/L (21-32); CHLORIDE LEVEL 110 MEQ/L (98-107); CREATININE FOR GFR 0.48 MG/DL (0.55-1.30); GLOMERULAR FILTRATION RATE > 60.0 (>51); GLUCOSE, FASTING 63 MG/DL (70-100); POTASSIUM SERUM 4.5 MEQ/L (3.5-5.1); SODIUM LEVEL 145 MEQ/L (136-145)
[2020-08-16 19:27] LABS: ALBUMIN 2.7 GM/DL (3.2-5.2); BILIRUBIN,TOTAL 0.3 MG/DL (0.2-1.0); TOTAL PROTEIN 5.6 GM/DL (6.4-8.2)
== END ==
LOC: M LAB REF 16:25
PROVIDERS: ATTEND Nurse Practitioner Family
DX: E11.9 Type 2 diabetes mellitus without complications (principal); E24.9 Cushing's syndrome, unspecified

== ENCOUNTER → 2020-08-16 | Outpatient (REF) | payer MEDICARE ==
[2020-08-16 17:37] LABS: BLOOD UREA NITROGEN 13 MG/DL (7-18); CALCIUM LEVEL 9.1 MG/DL (8.5-10.1); CARBON DIOXIDE LEVEL 26 MEQ/L (21-32); CHLORIDE LEVEL 111 MEQ/L (98-107); GLOMERULAR FILTRATION RATE > 60.0 (>51); GLUCOSE, FASTING 63 MG/DL (70-100); POTASSIUM SERUM 4.5 MEQ/L (3.5-5.1); SODIUM LEVEL 145 MEQ/L (136-145)
== END ==
LOC: M LAB REF 16:29
PROVIDERS: ATTEND Internal Medicine
DX: E24.9 Cushing's syndrome, unspecified (principal)

== ENCOUNTER → 2020-08-17 | Outpatient (REF) | payer MEDICARE ==
[2020-08-17 13:39] LABS: CREATININE, URINE 53.8 MG/DL; MALB URINE SIEMENS 6.2 MG/L; MAU/CREAT RATIO 11.5 MCG/MG (0.0-30.0)
== END ==
LOC: M LAB REF 12:53
PROVIDERS: ATTEND Nurse Practitioner Family
DX: E11.9 Type 2 diabetes mellitus without complications (principal)

== ENCOUNTER → 2020-08-17 | Outpatient (REF) | payer MEDICARE ==
[2020-08-22 20:07] LABS: FREE CORTISOL 24HR URINE 8 ug/24 hr (6-42); FREE CORTISOL URINE 8 ug/L (Undefined)
== END ==
LOC: M LAB REF 12:55
PROVIDERS: ATTEND Internal Medicine
DX: E24.0 Pituitary-dependent Cushing's disease (principal); E23.2 Diabetes insipidus; E11.9 Type 2 diabetes mellitus without complications

== ENCOUNTER → 2020-09-21 | Outpatient (REF) | payer MEDICARE ==
[2020-09-21 16:07] LABS: BASO % 0.2 % (0.0-1.0); EOS # 0.4 10^3/uL (0.0-0.5); EOS % 3.4 % (0.0-3.0); HEMATOCRIT 28.5 % (36.0-47.0); LYMPH # 1.9 10^3/uL (1.5-5.0); LYMPH % 15.3 % (24.0-44.0); MEAN CORPUSCULAR HEMOGLOBIN 22.7 pg (27.0-33.0); MEAN CORPUSCULAR HGB CONC 28.1 g/dl (32.0-36.5); MONO % 7.8 % (2.0-8.0); NEUTROPHILS % 71.7 % (36.0-66.0); PLATELET COUNT, AUTOMATED 516 10^3/uL (150-450); RED BLOOD COUNT 3.52 10^6/uL (4.00-5.40); WHITE BLOOD COUNT 12.5 10^3/uL (4.0-10.0)
== END ==
LOC: M LAB REF 15:06
PROVIDERS: ATTEND Physician Assistant
DX: D72.823 Leukemoid reaction (principal)

== ENCOUNTER 2020-10-21 12:22 | Emergency (ER) | payer MEDICARE ==
[~2020-10-21] VITALS: Ht 152.4 cm; Wt 74.5 kg
--- NOTE | 2020-10-21 13:40 | REP ---
INDICATION: ?dislocation. COMPARISON: None. TECHNIQUE: Two views of the right hip were obtained. FINDINGS: There is a right total hip arthroplasty. The femoral component is superolaterally dislocated. There is no evidence of fracture or loosening of the prosthetic components. There are vascular calcifications in the right thigh. IMPRESSION: Dislocation of the right total hip arthroplasty, as described. <Electronically signed by Thierry Piper > 10/21/20 [id number]
[2020-10-21] MEDS ORDERED: NS 1,000 ML IV SCH (14:05)
[2020-10-21] MEDS ORDERED: ONDANSETRON 4MG/2ML VIAL IV ONE (14:05)
[2020-10-21] MEDS: propofoL 200 MG/20 ML VIAL IV.PROC PRN ×5 (15:52→15:59)
--- NOTE | 2020-10-21 16:20 | REP ---
INDICATION: post reduction. COMPARISON: Right hip, 10/21/2020 1:07 p.m. TECHNIQUE: AP image of the right hip was obtained. FINDINGS: There has been interval reduction of the right hip prosthesis dislocation. There are no complications. IMPRESSION: Status post reduction of the right total hip arthroplasty dislocation. <Electronically signed by Thierry Piper > 10/21/20 [id number]
[2020-10-21 18:18] VITALS: BP 126/76
== END 2020-10-21 18:46 | disposition home or self-care (01) ==
LOC: M ED 12:22 → EDBD 12:22 → M ED 18:46
DX: S73.001A Unspecified subluxation of right hip, initial encounter (principal); X58.XXXA Exposure to other specified factors, initial encounter; Y92.89 Other specified places as the place of occurrence of the external cause; Z96.641 Presence of right artificial hip joint; E11.9 Type 2 diabetes mellitus without complications; I10 Essential (primary) hypertension; E78.5 Hyperlipidemia, unspecified; F33.9 Major depressive disorder, recurrent, unspecified; Z79.899 Other long term (current) drug therapy; Z88.1 Allergy status to other antibiotic agents; Z88.2 Allergy status to sulfonamides; Z88.5 Allergy status to narcotic agent
CPT/HCPCS: 23650; 73501; 73502; 93041; 96361; 96374; 99151; 99153; 99291; J2405

== ENCOUNTER → 2020-12-21 | Outpatient (CLI) | payer MEDICARE ==
[2020-12-21 09:44] LABS: BLOOD UREA NITROGEN 16 MG/DL (7-18); CREATININE FOR GFR 0.68 MG/DL (0.55-1.30); GLOMERULAR FILTRATION RATE > 60.0 (>51)
== END ==
LOC: M LAB 08:48
PROVIDERS: ATTEND Nurse Practitioner Family
DX: D35.2 Benign neoplasm of pituitary gland (principal)

== ENCOUNTER → 2020-12-21 | Outpatient (CLI) | payer MEDICARE ==
[2020-12-21 09:49] LABS: ALBUMIN 3.3 GM/DL (3.2-5.2); ALT/SGPT 63 U/L (12-78); BILIRUBIN,TOTAL 0.4 MG/DL (0.2-1.0); BLOOD UREA NITROGEN 16 MG/DL (7-18); CALCIUM LEVEL 9.4 MG/DL (8.5-10.1); CARBON DIOXIDE LEVEL 28 MEQ/L (21-32); CHLORIDE LEVEL 109 MEQ/L (98-107); CREATININE FOR GFR 0.66 MG/DL (0.55-1.30); GLOMERULAR FILTRATION RATE > 60.0 (>51); GLUCOSE, FASTING 89 MG/DL (70-100); POTASSIUM SERUM 4.5 MEQ/L (3.5-5.1); SODIUM LEVEL 141 MEQ/L (136-145); TOTAL PROTEIN 6.9 GM/DL (6.4-8.2)
[2020-12-21 11:21] LABS: CORTISOL AM 10.3 UG/DL (4.3-22.4)
== END ==
LOC: M LAB 08:43
PROVIDERS: ATTEND Internal Medicine
DX: E27.40 Unspecified adrenocortical insufficiency (principal); D35.2 Benign neoplasm of pituitary gland

== ENCOUNTER → 2020-12-29 | Outpatient (CLI) | payer MEDICARE ==
--- NOTE | 2020-12-29 16:22 | REPVR ---
PROCEDURE INFORMATION: Exam: MR Head Without and With Contrast, Sella Exam date and time: 12/29/2020 3:09 PM Age: 55 years old Clinical indication: Condition or disease; Brain lesion; Prior surgery; Surgery date: 6+ months; Surgery type: Pituitary surg in May; Patient HX: Cushings disease; Additional info: Pituitary microadenoma TECHNIQUE: Imaging protocol: MR of the head without and with intravenous contrast. Exam focused on the sella. Contrast material: PROHANCE; Contrast volume: 7 ml; Contrast route: INTRAVENOUS (IV); COMPARISON: MRI-Brain without Contrast 06/06/2020 7:29 PM FINDINGS: Pituitary gland and sella: Unremarkable. Pituitary gland is normal. No abnormal enhancement. Bones/joints: Unremarkable. IMPRESSION: Unremarkable sella. Electronically signed by: Michael Recio On 12/29/2020 16:21:54 PM
== END ==
LOC: M PLARAD 13:38
PROVIDERS: ATTEND Neurological Surgery
DX: D35.2 Benign neoplasm of pituitary gland (principal)

== ENCOUNTER → 2021-01-01 | Outpatient (CLI) | payer MEDICARE ==
[2021-01-01 14:37] LABS: HEMOGLOBIN A1c 5.9 %
[2021-01-01 15:02] LABS: FREE T4 0.98 NG/DL (0.76-1.46); THYROID STIMULATING HORMONE 0.499 uIU/ML (0.358-3.740)
== END ==
LOC: M PLALAB 10:51
PROVIDERS: ATTEND Family Medicine
DX: E05.90 Thyrotoxicosis, unspecified without thyrotoxic crisis or storm (principal); E11.9 Type 2 diabetes mellitus without complications
CPT/HCPCS: 36415; 83036; 84439; 84443; G0463

== ENCOUNTER → 2021-05-01 | Outpatient (CLI) | payer MEDICARE ==
[~2021-05-01] MED LIST changes: -D31000TA2 PO; +VITA100093 PO
== END ==
LOC: M WUC 08:06
PROVIDERS: ATTEND Internal Medicine
DX: E27.40 Unspecified adrenocortical insufficiency (principal)

== ENCOUNTER → 2021-05-01 | Outpatient (CLI) | payer MEDICARE ==
[2021-05-01 10:22] LABS: HEMOGLOBIN 10.6 g/dl (12.0-15.5); MEAN CORPUSCULAR HEMOGLOBIN 20.3 pg (27.0-33.0); MEAN CORPUSCULAR HGB CONC 28.6 g/dl (32.0-36.5); MEAN CORPUSCULAR VOLUME 70.7 fl (80.0-96.0); PLATELET COUNT, AUTOMATED 430 10^3/uL (150-450); RED BLOOD COUNT 5.23 10^6/uL (4.00-5.40); WHITE BLOOD COUNT 10.9 10^3/uL (4.0-10.0)
[2021-05-01 10:40] LABS: HEMOGLOBIN A1c 6.2 %
[2021-05-01 11:03] LABS: ALBUMIN 3.8 GM/DL (3.2-5.2); ALT/SGPT 67 U/L (12-78); BILIRUBIN,TOTAL 0.3 MG/DL (0.2-1.0); BLOOD UREA NITROGEN 25 MG/DL (7-18); CALCIUM LEVEL 9.7 MG/DL (8.5-10.1); CARBON DIOXIDE LEVEL 28 MEQ/L (21-32); CHLORIDE LEVEL 109 MEQ/L (98-107); CORTISOL AM 13.8 UG/DL (4.3-22.4); CREATININE FOR GFR 0.66 MG/DL (0.55-1.30); FREE T4 0.87 NG/DL (0.76-1.46); GLOMERULAR FILTRATION RATE > 60.0 (>51); GLUCOSE, FASTING 93 MG/DL (70-100); POTASSIUM SERUM 4.9 MEQ/L (3.5-5.1); SODIUM LEVEL 142 MEQ/L (136-145); TOTAL PROTEIN 7.4 GM/DL (6.4-8.2)
== END ==
LOC: M WUC 08:02
PROVIDERS: ATTEND Internal Medicine Hematology
DX: E11.9 Type 2 diabetes mellitus without complications (principal); E27.40 Unspecified adrenocortical insufficiency

== ENCOUNTER → 2021-05-09 | Outpatient (CLI) | payer MEDICARE ==
[~2021-05-09] MED LIST changes: +DESM0.1T2 PO; +HYDR-3363 PO; +MELO15TA28 PO; +METF750T36 PO; +collagen powder
== END ==
LOC: M LABSMTC 09:43
PROVIDERS: ATTEND Anesthesiology
DX: Z01.818 Encounter for other preprocedural examination (principal); Z20.822 Contact with and (suspected) exposure to COVID-19

== ENCOUNTER → 2021-05-15 | Outpatient (CLI) | payer MEDICARE | LOC: M RAD 12:29 | PROVIDERS: ATTEND Nurse Practitioner | DX: M51.36 Other intervertebral disc degeneration, lumbar region (principal); M54.16 Radiculopathy, lumbar region; M43.17 Spondylolisthesis, lumbosacral region; M48.062 Spinal stenosis, lumbar region with neurogenic claudication; M54.42 Lumbago with sciatica, left side ==

== ENCOUNTER → 2021-05-24 | Outpatient (CLI) | payer MEDICARE ==
[~2021-05-24] MED LIST changes: -ACET1TAB16 PO; +ACET300T48 PO
[2021-05-24 16:15] LABS: BLOOD UREA NITROGEN 24 MG/DL (7-18); CREATININE FOR GFR 0.68 MG/DL (0.55-1.30); GLOMERULAR FILTRATION RATE > 60.0 (>51)
== END ==
LOC: M WUC 13:25
PROVIDERS: ATTEND Neurological Surgery
DX: Z13.89 Encounter for screening for other disorder (principal)

== ENCOUNTER → 2021-05-24 | Outpatient (CLI) | payer MEDICARE ==
[2021-05-24 16:12] LABS: HEMOGLOBIN A1c 6.3 %
[2021-05-24 16:26] LABS: ALBUMIN 3.7 GM/DL (3.2-5.2); CALCIUM LEVEL 9.6 MG/DL (8.5-10.1); FREE T4 0.78 NG/DL (0.76-1.46); PERCENT SATURATION 5.2 % (13.2-45.0); THYROID STIMULATING HORMONE 0.725 uIU/ML (0.358-3.740)
== END ==
LOC: M WUC 13:14
PROVIDERS: ATTEND Internal Medicine Hematology
DX: D50.9 Iron deficiency anemia, unspecified (principal)

== ENCOUNTER 2021-06-04 13:59 | Outpatient (CLI) | payer MEDICARE ==
[~2021-06-04] VITALS: Ht 149.9 cm; Wt 80.2 kg
[~2021-06-04 13:59] MED LIST changes: +ALBUTEROL SULFATE 2.5 MG/0.5 ML INH NEB SOLN INH PRN; +EPINEPHrine INJ 1 MG/ML 1ML AMP IM PRN; +IRON SUCROSE 200 MG in NS 100 ML OVER 1 HR IV ONE; +IRON SUCROSE 25 MG in NS 25 ML IV ONE; +NS 1,000 ML IV SCH; +diphenhydrAMINE 50MG/ML VIAL (J1200) IV PRN; +methylPREDNISolone 125MG 2ML VIAL IV PRN
[2021-06-04 14:41] VITALS: BP 146/93
[2021-06-04 16:55] VITALS: BP 157/72
== END 2021-06-04 17:00 | disposition home or self-care (01) ==
LOC: M INFU 13:59
PROVIDERS: ATTEND Internal Medicine Hematology
DX: D50.9 Iron deficiency anemia, unspecified (principal); Z88.2 Allergy status to sulfonamides
CPT/HCPCS: 96365; J1756

== ENCOUNTER → 2021-06-06 | Outpatient (CLI) | payer MEDICARE ==
[~2021-06-06] MED LIST changes: -ALBUTEROL SULFATE 2.5 MG/0.5 ML INH NEB SOLN INH PRN; -EPINEPHrine INJ 1 MG/ML 1ML AMP IM PRN; -IRON SUCROSE 200 MG in NS 100 ML OVER 1 HR IV ONE; -IRON SUCROSE 25 MG in NS 25 ML IV ONE; -NS 1,000 ML IV SCH; -diphenhydrAMINE 50MG/ML VIAL (J1200) IV PRN; -methylPREDNISolone 125MG 2ML VIAL IV PRN
[2021-06-06 16:43] LABS: ALBUMIN 3.9 GM/DL (3.2-5.2); CHOLESTEROL RISK RATIO 4.955 (<5); PERCENT SATURATION 18.5 % (13.2-45.0)
== END ==
LOC: M WUC 11:22
PROVIDERS: ATTEND Internal Medicine Hematology
DX: D50.9 Iron deficiency anemia, unspecified (principal); Z29.8 Encounter for other specified prophylactic measures; E05.90 Thyrotoxicosis, unspecified without thyrotoxic crisis or storm

== ENCOUNTER → 2021-06-07 | Outpatient (CLI) | payer MEDICARE | LOC: M LABSMTC 09:38 | PROVIDERS: ATTEND Anesthesiology | DX: Z01.818 Encounter for other preprocedural examination (principal); Z11.52 Encounter for screening for COVID-19 ==

== ENCOUNTER 2021-06-19 09:38 | Outpatient (CLI) | payer MEDICARE ==
[~2021-06-19 09:38] MED LIST changes: +ALBUTEROL SULFATE 2.5 MG/0.5 ML INH NEB SOLN INH PRN; +EPINEPHrine INJ 1 MG/ML 1ML AMP IM PRN; +IRON SUCROSE 200 MG in NS 100 ML OVER 1 HR IV ONE; +NS 1,000 ML IV SCH; +diphenhydrAMINE 50MG/ML VIAL (J1200) IV PRN; +methylPREDNISolone 125MG 2ML VIAL IV PRN
[2021-06-19 10:05] VITALS: BP 183/101
[2021-06-19 11:10] VITALS: BP 155/76
== END 2021-06-19 11:15 | disposition home or self-care (01) ==
LOC: M INFU 09:38
PROVIDERS: ATTEND Internal Medicine Hematology
DX: D50.9 Iron deficiency anemia, unspecified (principal); Z88.2 Allergy status to sulfonamides
CPT/HCPCS: 96365; J1756

== ENCOUNTER → 2021-06-21 | Outpatient (CLI) | payer MEDICARE ==
[~2021-06-21] MED LIST changes: -ALBUTEROL SULFATE 2.5 MG/0.5 ML INH NEB SOLN INH PRN; -EPINEPHrine INJ 1 MG/ML 1ML AMP IM PRN; -IRON SUCROSE 200 MG in NS 100 ML OVER 1 HR IV ONE; -NS 1,000 ML IV SCH; +PROHANCE 279.3MG/ML 5ML VIAL As Ordered ONE; -diphenhydrAMINE 50MG/ML VIAL (J1200) IV PRN; -methylPREDNISolone 125MG 2ML VIAL IV PRN
== END ==
LOC: M RAD 10:42
PROVIDERS: ATTEND Neurological Surgery
DX: D35.2 Benign neoplasm of pituitary gland (principal)
CPT/HCPCS: 70553; A9576

== ENCOUNTER 2021-06-26 11:23 | Outpatient (CLI) | payer MEDICARE ==
[~2021-06-26] VITALS: Ht 149.9 cm; Wt 80.2 kg
[~2021-06-26 11:23] MED LIST changes: -PROHANCE 279.3MG/ML 5ML VIAL As Ordered ONE
[2021-06-26] MEDS ORDERED: NS 1,000 ML IV SCH (11:30)
[2021-06-26] MEDS ORDERED: IRON SUCROSE 200 MG in NS 100 ML OVER 1 HR IV ONE (11:30)
[2021-06-26] MEDS ORDERED: methylPREDNISolone 125MG 2ML VIAL IV PRN (11:30)
[2021-06-26] MEDS ORDERED: ALBUTEROL SULFATE 2.5 MG/0.5 ML INH NEB SOLN INH PRN (11:30)
[2021-06-26] MEDS ORDERED: EPINEPHrine INJ 1 MG/ML 1ML AMP IM PRN (11:30)
[2021-06-26] MEDS ORDERED: diphenhydrAMINE 50MG/ML VIAL (J1200) IV PRN (11:30)
[2021-06-26 11:39] VITALS: BP 170/83
[2021-06-26 13:15] VITALS: BP 147/84
== END 2021-06-26 13:15 | disposition home or self-care (01) ==
LOC: M INFU 11:23
PROVIDERS: ATTEND Internal Medicine Hematology
DX: D50.9 Iron deficiency anemia, unspecified (principal); Z88.2 Allergy status to sulfonamides
CPT/HCPCS: 96365; J1756

== ENCOUNTER → 2021-07-06 | Outpatient (CLI) | payer MEDICARE | LOC: M RAD 06:50 | PROVIDERS: ATTEND Internal Medicine Hematology | DX: E74.01 von Gierke disease (principal) ==

== ENCOUNTER → 2021-08-27 | Outpatient (CLI) | payer MEDICARE ==
[2021-08-27 19:56] LABS: ALBUMIN 3.4 GM/DL (3.2-5.2); ALT/SGPT 42 U/L (12-78); BILIRUBIN,TOTAL 0.4 MG/DL (0.2-1.0); BLOOD UREA NITROGEN 22 MG/DL (7-18); CALCIUM LEVEL 9.4 MG/DL (8.5-10.1); CARBON DIOXIDE LEVEL 29 MEQ/L (21-32); CHLORIDE LEVEL 109 MEQ/L (98-107); CHOLESTEROL LEVEL 219 MG/DL (<200); CHOLESTEROL RISK RATIO 4.469 (<5); FERRITIN 5 NG/ML (8-252); FREE T4 0.83 NG/DL (0.76-1.46); GLOMERULAR FILTRATION RATE > 60.0 (>51); GLUCOSE, FASTING 98 MG/DL (70-100); HDL CHOLESTEROL 49 MG/DL (>40); IRON (FE) 37 UG/DL (50-170); LDL CHOLESTEROL 141 MG/DL (<100); NON-HDL-C 170 MG/DL; PERCENT SATURATION 9.7 % (13.2-45.0); POTASSIUM SERUM 4.8 MEQ/L (3.5-5.1); SODIUM LEVEL 140 MEQ/L (136-145); THYROID STIMULATING HORMONE 0.308 uIU/ML (0.358-3.740); TOTAL IRON BINDING CAPACITY 380 UG/DL (250-450); TOTAL PROTEIN 6.6 GM/DL (6.4-8.2); TRIGLYCERIDES LEVEL 146 MG/DL (<150)
[2021-08-27 20:17] LABS: TOTAL 25(OH) VITAMIN D 26.2 NG/ML (30.0-100.0); VITAMIN B12 LEVEL 428 PG/ML (247-911)
[2021-08-28 00:48] LABS: HEMOGLOBIN A1c 6.2 %
== END ==
LOC: M PLALAB 13:09
PROVIDERS: ATTEND Internal Medicine Hematology
DX: E11.22 Type 2 diabetes mellitus with diabetic chronic kidney disease (principal)

== ENCOUNTER → 2021-08-27 | Outpatient (CLI) | payer MEDICARE | LOC: M WHC 11:56 | PROVIDERS: ATTEND Internal Medicine Hematology | DX: E24.0 Pituitary-dependent Cushing's disease (principal); E11.22 Type 2 diabetes mellitus with diabetic chronic kidney disease ==

== ENCOUNTER 2021-09-06 10:26 | Outpatient (CLI) | payer MEDICARE ==
[~2021-09-06] VITALS: Ht 149.9 cm; Wt 80.2 kg
[~2021-09-06 10:26] MED LIST changes: +ALBUTEROL SULFATE 2.5 MG/0.5 ML INH NEB SOLN INH PRN; +EPINEPHrine INJ 1 MG/ML 1ML AMP IM PRN; +diphenhydrAMINE 50MG/ML VIAL (J1200) IV PRN; +methylPREDNISolone 125MG 2ML VIAL IV PRN
[2021-09-06] MEDS ORDERED: NS 1,000 ML IV SCH (10:30)
[2021-09-06] MEDS ORDERED: FERRIC CARBOXYMALTOSE INJ 750 MG in NS 250 ML (>50kg) IV ONE ×3 (10:30)
[2021-09-06 11:00] VITALS: BP 155/90
[2021-09-06 12:15] VITALS: BP 161/93
== END 2021-09-06 12:19 | disposition home or self-care (01) ==
LOC: M INFU 10:26
PROVIDERS: ATTEND Internal Medicine Hematology
DX: D50.9 Iron deficiency anemia, unspecified (principal); Z88.2 Allergy status to sulfonamides
CPT/HCPCS: 96365; J1439

== ENCOUNTER 2021-09-17 11:00 | Outpatient (CLI) | payer MEDICARE ==
[~2021-09-17] VITALS: Ht 177.8 cm; Wt 86.1 kg
[~2021-09-17 11:00] MED LIST changes: +FERRIC CARBOXYMALTOSE INJ 750 MG in NS 250 ML (>50kg) IV ONE; +FISH10005 PO; -FISH7.5C PO; -LABE100T4 PO; +LABE100T6 PO; +NS 1,000 ML IV SCH
[2021-09-17 11:05] VITALS: BP 159/83
[2021-09-17 12:20] VITALS: BP 144/90
== END 2021-09-17 12:40 | disposition home or self-care (01) ==
LOC: M INFU 11:00
PROVIDERS: ATTEND Internal Medicine Hematology
DX: D50.9 Iron deficiency anemia, unspecified (principal); Z88.2 Allergy status to sulfonamides
CPT/HCPCS: 96365; J1439

== ENCOUNTER → 2021-10-17 | Outpatient (REF) | payer MEDICARE ==
[~2021-10-17] MED LIST changes: -ALBUTEROL SULFATE 2.5 MG/0.5 ML INH NEB SOLN INH PRN; -EPINEPHrine INJ 1 MG/ML 1ML AMP IM PRN; -FERRIC CARBOXYMALTOSE INJ 750 MG in NS 250 ML (>50kg) IV ONE; -NS 1,000 ML IV SCH; -diphenhydrAMINE 50MG/ML VIAL (J1200) IV PRN; -methylPREDNISolone 125MG 2ML VIAL IV PRN
[2021-10-17 11:54] LABS: BASO % 0.4 % (0.0-1.0); EOS # 0.4 10^3/uL (0.0-0.5); EOS % 3.6 % (0.0-3.0); HEMATOCRIT 51.2 % (36.0-47.0); HEMOGLOBIN 15.9 g/dl (12.0-15.5); LYMPH # 2.9 10^3/uL (1.5-5.0); LYMPH % 26.5 % (24.0-44.0); MEAN CORPUSCULAR HEMOGLOBIN 28.2 pg (27.0-33.0); MEAN CORPUSCULAR HGB CONC 31.1 g/dl (32.0-36.5); MEAN CORPUSCULAR VOLUME 90.8 fl (80.0-96.0); MONO # 0.8 10^3/uL (0.0-0.8); MONO % 6.9 % (2.0-8.0); NEUTROPHILS # 6.7 10^3/uL (1.5-8.5); NEUTROPHILS % 61.8 % (36.0-66.0); PLATELET COUNT, AUTOMATED 273 10^3/uL (150-450); RED BLOOD COUNT 5.64 10^6/uL (4.00-5.40); WHITE BLOOD COUNT 10.8 10^3/uL (4.0-10.0)
[2021-10-17 12:13] LABS: FREE T4 0.78 NG/DL (0.76-1.46); THYROID STIMULATING HORMONE 0.188 uIU/ML (0.358-3.740)
== END ==
LOC: M LABWUC 11:22
PROVIDERS: ATTEND Internal Medicine Hematology
DX: D50.0 Iron deficiency anemia secondary to blood loss (chronic) (principal); E05.90 Thyrotoxicosis, unspecified without thyrotoxic crisis or storm

== ENCOUNTER → 2021-12-07 | Outpatient (CLI) | payer MEDICARE ==
[2021-12-07 14:10] LABS: BLOOD UREA NITROGEN 19 MG/DL (7-18); CALCIUM LEVEL 9.2 MG/DL (8.5-10.1); CARBON DIOXIDE LEVEL 30 MEQ/L (21-32); CHLORIDE LEVEL 107 MEQ/L (98-107); FREE T4 0.87 NG/DL (0.76-1.46); GLOMERULAR FILTRATION RATE > 60.0 (>51); GLUCOSE, FASTING 93 MG/DL (70-100); POTASSIUM SERUM 4.4 MEQ/L (3.5-5.1); SODIUM LEVEL 142 MEQ/L (136-145); THYROID STIMULATING HORMONE 0.623 uIU/ML (0.358-3.740)
[2021-12-07 14:53] LABS: CORTISOL AM 30.9 UG/DL (4.3-22.4)
== END ==
LOC: M WUC 09:02
PROVIDERS: ATTEND Internal Medicine
DX: E03.8 Other specified hypothyroidism (principal); E23.2 Diabetes insipidus; E27.40 Unspecified adrenocortical insufficiency

== ENCOUNTER → 2021-12-17 | Outpatient (REF) | payer MEDICARE | LOC: M LAB REF 17:44 | PROVIDERS: ATTEND Internal Medicine | DX: E27.40 Unspecified adrenocortical insufficiency (principal) ==

== ENCOUNTER → 2022-01-24 | Outpatient (REF) | payer MEDICARE | LOC: M LAB REF 16:57 | PROVIDERS: ATTEND Internal Medicine | DX: E24.0 Pituitary-dependent Cushing's disease (principal) ==

== ENCOUNTER → 2022-01-30 | Outpatient (REF) | payer MEDICARE ==
[2022-01-31 11:26] LABS: CREATININE, URINE 85.9 MG/DL
[2022-01-31 20:08] LABS: CREATININE 24 HOUR, URINE 1202.6 MG/24HR (600-1800)
== END ==
LOC: M LAB REF 09:55
PROVIDERS: ATTEND Internal Medicine
DX: E24.0 Pituitary-dependent Cushing's disease (principal)

== ENCOUNTER → 2022-01-31 | Outpatient (CLI) | payer MEDICARE | LOC: M LAB 08:24 | PROVIDERS: ATTEND Internal Medicine | DX: E24.0 Pituitary-dependent Cushing's disease (principal) ==

== ENCOUNTER → 2022-03-07 | Outpatient (CLI) | payer MEDICARE ==
[2022-03-07 12:43] LABS: HEMOGLOBIN 16.3 g/dl (12.0-15.5); MEAN CORPUSCULAR HEMOGLOBIN 30.8 pg (27.0-33.0); MEAN CORPUSCULAR VOLUME 96.4 fl (80.0-96.0); PLATELET COUNT, AUTOMATED 269 10^3/uL (150-450); RED BLOOD COUNT 5.29 10^6/uL (4.00-5.40); WHITE BLOOD COUNT 9.1 10^3/uL (4.0-10.0)
[2022-03-07 13:12] LABS: PERCENT SATURATION 24.3 % (13.2-45.0)
[2022-03-07 13:13] LABS: FERRITIN 100.9 NG/ML (7.3-270.7)
== END ==
LOC: M LAB 11:23
PROVIDERS: ATTEND Internal Medicine Hematology
DX: D50.9 Iron deficiency anemia, unspecified (principal)

== ENCOUNTER → 2022-03-07 | Outpatient (CLI) | payer MEDICARE ==
[2022-03-07 13:11] LABS: ALBUMIN 3.5 G/DL (3.2-5.2); ALKALINE PHOSPHATASE 118 U/L (46-116); ALT/SGPT 30 U/L (7.0-40); AST/SGOT 21 U/L (<34); BILIRUBIN,TOTAL 0.5 MG/DL (0.3-1.2); BLOOD UREA NITROGEN 21 MG/DL (9-23); CALCIUM LEVEL 9.4 MG/DL (8.5-10.1); CARBON DIOXIDE LEVEL 29 MMOL/L (20-31); CHLORIDE LEVEL 107 MMOL/L (98-107); CREATININE FOR GFR 0.77 MG/DL (0.55-1.30); GLOMERULAR FILTRATION RATE > 60.0 (>51); GLUCOSE, FASTING 96 MG/DL (60-100); POTASSIUM SERUM 4.5 MMOL/L (3.5-5.1); SODIUM LEVEL 143 MMOL/L (136-145); TOTAL PROTEIN 6.2 G/DL (5.7-8.2)
== END ==
LOC: M LAB 11:32
PROVIDERS: ATTEND Internal Medicine
DX: E24.0 Pituitary-dependent Cushing's disease (principal)

== ENCOUNTER → 2022-03-29 | Outpatient (REF) | payer MEDICARE | LOC: M SFHCDERM 17:14 | PROVIDERS: ATTEND Nurse Practitioner Family | DX: C44.509 Unspecified malignant neoplasm of skin of other part of trunk (principal) ==

== ENCOUNTER → 2022-04-17 | Outpatient (REF) | payer MEDICARE ==
[~2022-04-17] MED LIST changes: +DESM0.1T16 PO; -DESM0.1T2 PO
== END ==
LOC: M LAB REF 16:25
PROVIDERS: ATTEND Surgery
DX: C44.529 Squamous cell carcinoma of skin of other part of trunk (principal)

== ENCOUNTER → 2022-04-26 | Outpatient (CLI) | payer MEDICARE ==
[2022-04-26 09:33] LABS: HEMATOCRIT 50.6 % (36.0-47.0); HEMOGLOBIN 16.1 g/dl (12.0-15.5); MEAN CORPUSCULAR HGB CONC 31.8 g/dl (32.0-36.5); MEAN CORPUSCULAR VOLUME 94.2 fl (80.0-96.0); PLATELET COUNT, AUTOMATED 244 10^3/uL (150-450); RED BLOOD COUNT 5.37 10^6/uL (4.00-5.40); WHITE BLOOD COUNT 7.3 10^3/uL (4.0-10.0)
[2022-04-26 10:00] LABS: MAU/CREAT RATIO 11.6 MCG/MG (0.0-30.0)
[2022-04-26 10:08] LABS: ALBUMIN 3.5 G/DL (3.2-5.2); ALKALINE PHOSPHATASE 132 U/L (46-116); ALT/SGPT 38 U/L (7.0-40); AST/SGOT 28 U/L (<34); BILIRUBIN,TOTAL 0.9 MG/DL (0.3-1.2); BLOOD UREA NITROGEN 16 MG/DL (9-23); CALCIUM LEVEL 9.2 MG/DL (8.5-10.1); CARBON DIOXIDE LEVEL 28 MMOL/L (20-31); CHLORIDE LEVEL 106 MMOL/L (98-107); CHOLESTEROL LEVEL 222 MG/DL (<200); CHOLESTEROL RISK RATIO 5.49 (<5); CREATININE FOR GFR 0.81 MG/DL (0.55-1.30); GLOMERULAR FILTRATION RATE > 60.0 (>51); GLUCOSE, FASTING 97 MG/DL (60-100); HDL CHOLESTEROL 40.4 MG/DL (>40); LDL CHOLESTEROL 125.2 MG/DL (<100); NON-HDL-C 181.6 MG/DL; POTASSIUM SERUM 4.3 MMOL/L (3.5-5.1); SODIUM LEVEL 142 MMOL/L (136-145); THYROID STIMULATING HORMONE 0.914 uIU/ML (0.55-4.78); TOTAL 25(OH) VITAMIN D 81.3 NG/ML (20.0-100.0); TOTAL PROTEIN 6.5 G/DL (5.7-8.2); TRIGLYCERIDES LEVEL 282 MG/DL (<150); VITAMIN B12 LEVEL 525 PG/ML (211-911)
[2022-04-26 10:19] LABS: HEMOGLOBIN A1c 6.1 % (4.0-6.0)
== END ==
LOC: M LAB 04-24 10:28
PROVIDERS: ATTEND Internal Medicine Hematology
DX: E11.9 Type 2 diabetes mellitus without complications (principal); Z79.899 Other long term (current) drug therapy

== ENCOUNTER → 2022-04-26 | Outpatient (CLI) | payer MEDICARE ==
[2022-04-26 12:12] LABS: CREATININE, URINE 104.5 MG/DL
[2022-04-30 14:09] LABS: FREE CORTISOL 24HR URINE 14 ug/24 hr (6-42); FREE CORTISOL URINE 17 ug/L (Undefined)
== END ==
LOC: M LAB 08:09
PROVIDERS: ATTEND Internal Medicine
DX: E27.40 Unspecified adrenocortical insufficiency (principal); E24.0 Pituitary-dependent Cushing's disease

== ENCOUNTER → 2022-07-01 | Outpatient (CLI) | payer MEDICARE ==
[2022-07-01 13:58] LABS: ALBUMIN 3.7 G/DL (3.2-5.2); ALKALINE PHOSPHATASE 131 U/L (46-116); ALT/SGPT 19 U/L (7.0-40); AST/SGOT 15 U/L (<34); BILIRUBIN,DIRECT < 0.1 MG/DL (<0.4); BILIRUBIN,TOTAL 0.5 MG/DL (0.3-1.2); TOTAL PROTEIN 6.5 G/DL (5.7-8.2)
== END ==
LOC: M LAB 12:27
DX: E24.0 Pituitary-dependent Cushing's disease (principal)

== ENCOUNTER → 2022-07-03 | Outpatient (REF) | payer MEDICARE ==
[2022-07-03 10:42] LABS: CREATININE, URINE 73.5 MG/DL
[2022-07-03 16:17] LABS: CREATININE 24 HOUR, URINE 1286.2 MG/24HR (600-1800)
== END ==
LOC: M LAB REF 09:18
DX: E24.0 Pituitary-dependent Cushing's disease (principal)

== ENCOUNTER → 2022-08-16 | Outpatient (REF) | payer MEDICARE ==
[2022-08-16 17:19] LABS: BLOOD UREA NITROGEN 25 MG/DL (9-23); CREATININE FOR GFR 0.86 MG/DL (0.55-1.30); GLOMERULAR FILTRATION RATE > 60.0 (>51)
== END ==
LOC: M LABWUC 16:22
PROVIDERS: ATTEND Nurse Practitioner Family
DX: D35.2 Benign neoplasm of pituitary gland (principal)

== ENCOUNTER → 2022-08-22 | Outpatient (CLI) | payer MEDICARE | LOC: M PLARAD 14:37 | PROVIDERS: ATTEND Neurological Surgery | DX: D35.2 Benign neoplasm of pituitary gland (principal); Z92.3 Personal history of irradiation ==

== ENCOUNTER → 2022-09-12 | Outpatient (CLI) | payer MEDICARE ==
[2022-09-12 17:33] LABS: PERCENT SATURATION 16.4 % (13.2-45.0)
[2022-09-12 17:35] LABS: FERRITIN 236.6 NG/ML (7.3-270.7)
== END ==
LOC: M WUC 14:19
PROVIDERS: ATTEND Internal Medicine Hematology
DX: D50.9 Iron deficiency anemia, unspecified (principal)

== ENCOUNTER 2022-09-19 12:57 | Outpatient (CLI) | payer MEDICARE ==
[~2022-09-19] VITALS: Ht 147.3 cm; Wt 83.4 kg
[~2022-09-19 12:57] MED LIST changes: +ALBUTEROL SULFATE 2.5MG/0.5ML INH NEB SOLN INH PRN; +EPINEPHrine INJ 1 MG/ML 1ML AMP IM PRN; +diphenhydrAMINE 50MG/ML VIAL IV PRN; +methylPREDNISolone 125MG 2ML VIAL IV PRN
[2022-09-19 13:16] VITALS: BP 139/76; O2SAT 96
[2022-09-19] MEDS ORDERED: NS 1,000 ML IV SCH (13:40)
[2022-09-19] MEDS ORDERED: IRON SUCROSE 200 MG in NS 100 ML OVER 1 HR IV ONE (13:45)
[2022-09-19 15:45] VITALS: BP 139/76; O2SAT 97
== END 2022-09-19 15:45 | disposition home or self-care (01) ==
LOC: M INFU 12:57
PROVIDERS: ATTEND Internal Medicine Hematology
DX: D50.9 Iron deficiency anemia, unspecified (principal); Z88.2 Allergy status to sulfonamides
CPT/HCPCS: 96365; J1756

== ENCOUNTER 2022-10-03 13:00 | Outpatient (CLI) | payer MEDICARE ==
[~2022-10-03] VITALS: Ht 152.4 cm; Wt 81.8 kg
[2022-10-03 13:00] VITALS: BP 133/70; O2SAT 98
[~2022-10-03 13:00] MED LIST changes: +IRON SUCROSE 200 MG in NS 100 ML OVER 1 HR IV ONE; +NS 1,000 ML IV SCH
[2022-10-03 15:10] VITALS: BP 127/76; O2SAT 96
== END 2022-10-03 15:10 | disposition home or self-care (01) ==
LOC: M INFU 13:00
PROVIDERS: ATTEND Internal Medicine Hematology
DX: D50.9 Iron deficiency anemia, unspecified (principal); Z88.2 Allergy status to sulfonamides
CPT/HCPCS: 96365; J1756

== ENCOUNTER 2022-10-28 08:30 | Outpatient (CLI) | payer MEDICARE ==
[~2022-10-28] VITALS: Ht 147.3 cm; Wt 83.4 kg
[2022-10-28 08:37] VITALS: BP 122/65; O2SAT 96
[2022-10-28 10:25] VITALS: BP 127/68; O2SAT 100
== END 2022-10-28 10:25 ==
LOC: M INFU 08:30
PROVIDERS: ATTEND Internal Medicine Hematology
DX: D50.9 Iron deficiency anemia, unspecified (principal); Z88.2 Allergy status to sulfonamides
CPT/HCPCS: 96365; J1756

== ENCOUNTER → 2023-02-19 | Outpatient (CLI) | payer MEDICARE ==
[~2023-02-19] MED LIST changes: -ALBUTEROL SULFATE 2.5MG/0.5ML INH NEB SOLN INH PRN; -BIOT50004 PO; +BIOT5CAP8 PO; -EPINEPHrine INJ 1 MG/ML 1ML AMP IM PRN; -IRON SUCROSE 200 MG in NS 100 ML OVER 1 HR IV ONE; -NS 1,000 ML IV SCH; -diphenhydrAMINE 50MG/ML VIAL IV PRN; -methylPREDNISolone 125MG 2ML VIAL IV PRN
[2023-02-19 16:03] LABS: CORTISOL AM 23.5 UG/DL (4.3-22.4)
[2023-02-19 16:04] LABS: HEMATOCRIT 49.1 % (36.0-47.0); HEMOGLOBIN 15.7 g/dl (12.0-15.5); MEAN CORPUSCULAR HEMOGLOBIN 29.6 pg (27.0-33.0); MEAN CORPUSCULAR VOLUME 92.6 fl (80.0-96.0); PLATELET COUNT, AUTOMATED 277 10^3/uL (150-450); WHITE BLOOD COUNT 9.9 10^3/uL (4.0-10.0)
[2023-02-19 16:05] LABS: ALBUMIN 3.6 G/DL (3.2-5.2); ALKALINE PHOSPHATASE 116 U/L (46-116); ALT/SGPT 32 U/L (7.0-40); AST/SGOT 16 U/L (<34); BILIRUBIN,TOTAL 0.5 MG/DL (0.3-1.2); BLOOD UREA NITROGEN 15 MG/DL (9-23); CALCIUM LEVEL 9.3 MG/DL (8.5-10.1); CARBON DIOXIDE LEVEL 26 MMOL/L (20-31); CHLORIDE LEVEL 109 MMOL/L (98-107); CHOLESTEROL LEVEL 460 MG/DL (<200); CHOLESTEROL RISK RATIO 10.38 (<5); CREATININE FOR GFR 0.67 MG/DL (0.55-1.30); GLOMERULAR FILTRATION RATE > 60.0 (>51); GLUCOSE, FASTING 75 MG/DL (60-100); HDL CHOLESTEROL 44.3 MG/DL (>40); NON-HDL-C 415.7 MG/DL; POTASSIUM SERUM 4.3 MMOL/L (3.5-5.1); SODIUM LEVEL 142 MMOL/L (136-145); TOTAL PROTEIN 6.4 G/DL (5.7-8.2); TRIGLYCERIDES LEVEL 497 MG/DL (<150)
[2023-02-19 16:06] LABS: FREE T4 1.47 NG/DL (0.89-1.76)
[2023-02-19 16:07] LABS: THYROID STIMULATING HORMONE 0.842 uIU/ML (0.55-4.78); TOTAL 25(OH) VITAMIN D 36.1 NG/ML (20.0-100.0); VITAMIN B12 LEVEL 464 PG/ML (211-911)
[2023-02-19 16:35] LABS: HEMOGLOBIN A1c 5.1 % (4.0-6.0)
[2023-02-19 19:40] LABS: CREATININE, URINE 96.2 MG/DL
[2023-02-19 19:41] LABS: MAU/CREAT RATIO 4.1 MCG/MG (0.0-30.0)
== END ==
LOC: M PLALAB 13:48
PROVIDERS: ATTEND Internal Medicine Hematology
DX: R11.2 Nausea with vomiting, unspecified (principal); E11.9 Type 2 diabetes mellitus without complications; Z79.899 Other long term (current) drug therapy

== ENCOUNTER → 2023-03-09 | Outpatient (REF) | payer MEDICARE | LOC: M LAB REF 16:00 | PROVIDERS: ATTEND Internal Medicine | DX: E24.0 Pituitary-dependent Cushing's disease (principal) ==

== ENCOUNTER → 2023-03-10 | Outpatient (REF) | payer MEDICARE | LOC: M LAB REF 15:57 | PROVIDERS: ATTEND Internal Medicine | DX: E24.0 Pituitary-dependent Cushing's disease (principal) ==

== ENCOUNTER → 2023-05-06 | Outpatient (REF) | payer MEDICARE ==
[~2023-05-06] MED LIST changes: -KLON0.5T PO; +KLON0.5T8 PO
[2023-05-06 13:25] LABS: CREATININE 24 HOUR, URINE 853.1 MG/24HR (600-1800); CREATININE, URINE 89.8 MG/DL
== END ==
LOC: M LAB REF 11:06
PROVIDERS: ATTEND Internal Medicine
DX: E24.0 Pituitary-dependent Cushing's disease (principal)

== ENCOUNTER → 2023-06-16 | Outpatient (REF) | payer MEDICARE ==
[~2023-06-16] MED LIST changes: +ARIP1TAB6 PO; +ERGO500029 PO; +FERR30CA PO; +OMEP-173 PO; +ONDA-84 PO; +QUET50TA4 PO; +SEMA0.257 SC; +ZOLO100T PO
[2023-06-16 20:01] LABS: BASO % 0.4 % (0.0-1.0); EOS # 0.5 10^3/uL (0.0-0.5); EOS % 5.3 % (0.0-3.0); HEMATOCRIT 51.2 % (36.0-47.0); HEMOGLOBIN 16.5 g/dl (12.0-15.5); LYMPH % 31.8 % (24.0-44.0); MEAN CORPUSCULAR HEMOGLOBIN 30.8 pg (27.0-33.0); MEAN CORPUSCULAR HGB CONC 32.2 g/dl (32.0-36.5); MEAN CORPUSCULAR VOLUME 95.5 fl (80.0-96.0); MONO # 0.7 10^3/uL (0.0-0.8); MONO % 6.9 % (2.0-8.0); NEUTROPHILS # 5.2 10^3/uL (1.5-8.5); NEUTROPHILS % 55.1 % (36.0-66.0); PLATELET COUNT, AUTOMATED 262 10^3/uL (150-450); RED BLOOD COUNT 5.36 10^6/uL (4.00-5.40); WHITE BLOOD COUNT 9.5 10^3/uL (4.0-10.0)
[2023-06-16 20:21] LABS: CHOLESTEROL LEVEL 236 MG/DL (<200); CHOLESTEROL RISK RATIO 5.91 (<5); HDL CHOLESTEROL 39.9 MG/DL (>40); NON-HDL-C 196.1 MG/DL; TRIGLYCERIDES LEVEL 448 MG/DL (<150)
== END ==
LOC: M SFHCPLAZ 19:19
PROVIDERS: ATTEND Internal Medicine Hematology
DX: E78.2 Mixed hyperlipidemia (principal)

== ENCOUNTER → 2023-06-30 | Outpatient (REF) | payer MEDICARE ==
[2023-06-30 17:19] LABS: ALBUMIN 3.7 G/DL (3.2-5.2); ALKALINE PHOSPHATASE 130 U/L (46-116); ALT/SGPT 56 U/L (7.0-40); AST/SGOT 33 U/L (<34); BILIRUBIN,TOTAL 0.6 MG/DL (0.3-1.2); BLOOD UREA NITROGEN 23 MG/DL (9-23); CALCIUM LEVEL 9.8 MG/DL (8.5-10.1); CARBON DIOXIDE LEVEL 29 MMOL/L (20-31); CHLORIDE LEVEL 105 MMOL/L (98-107); CHOLESTEROL LEVEL 217 MG/DL (<200); CHOLESTEROL RISK RATIO 5.35 (<5); CREATININE FOR GFR 0.73 MG/DL (0.55-1.30); GLOMERULAR FILTRATION RATE > 60.0 (>51); GLUCOSE, FASTING 78 MG/DL (60-100); HDL CHOLESTEROL 40.5 MG/DL (>40); LDL CHOLESTEROL 123.5 MG/DL (<100); NON-HDL-C 176.5 MG/DL; POTASSIUM SERUM 4.5 MMOL/L (3.5-5.1); SODIUM LEVEL 140 MMOL/L (136-145); TOTAL PROTEIN 6.8 G/DL (5.7-8.2); TRIGLYCERIDES LEVEL 265 MG/DL (<150)
[2023-06-30 17:20] LABS: BASO # 0.1 10^3/uL (0.0-0.2); BASO % 0.4 % (0.0-1.0); EOS # 0.4 10^3/uL (0.0-0.5); EOS % 3.4 % (0.0-3.0); HEMOGLOBIN 16.1 g/dl (12.0-15.5); LYMPH # 2.8 10^3/uL (1.5-5.0); LYMPH % 24.5 % (24.0-44.0); MEAN CORPUSCULAR HEMOGLOBIN 30.2 pg (27.0-33.0); MEAN CORPUSCULAR HGB CONC 32.2 g/dl (32.0-36.5); MEAN CORPUSCULAR VOLUME 93.8 fl (80.0-96.0); MONO # 0.8 10^3/uL (0.0-0.8); MONO % 7.4 % (2.0-8.0); NEUTROPHILS # 7.2 10^3/uL (1.5-8.5); NEUTROPHILS % 63.8 % (36.0-66.0); PLATELET COUNT, AUTOMATED 250 10^3/uL (150-450); RED BLOOD COUNT 5.33 10^6/uL (4.00-5.40); WHITE BLOOD COUNT 11.3 10^3/uL (4.0-10.0)
== END ==
LOC: M LABWUC 16:40
PROVIDERS: ATTEND Internal Medicine Hematology
DX: E78.2 Mixed hyperlipidemia (principal)

== ENCOUNTER → 2023-08-25 | Outpatient (CLI) | payer MEDICARE ==
[~2023-08-25] MED LIST changes: +PROHANCE 279.3MG/ML 15ML VIAL As Ordered ONE
== END ==
LOC: M RAD 10:30
PROVIDERS: ATTEND Physician Assistant
DX: D35.2 Benign neoplasm of pituitary gland (principal)
CPT/HCPCS: 70553; A9576

== ENCOUNTER → 2023-09-04 | Outpatient (CLI) | payer MEDICARE ==
[~2023-09-04] MED LIST changes: +EZET10TA21 PO; +METR0.7526 TOP; +NYST1POW9 TOP; -PROHANCE 279.3MG/ML 15ML VIAL As Ordered ONE; +RA A650T5 PO; +[UNRECOGNIZED DRUG - OTHER] PO
== END ==
LOC: M WUC 08:03
PROVIDERS: ATTEND Internal Medicine
DX: E27.40 Unspecified adrenocortical insufficiency (principal); D50.9 Iron deficiency anemia, unspecified; E11.9 Type 2 diabetes mellitus without complications; Z79.899 Other long term (current) drug therapy

== ENCOUNTER → 2023-09-04 | Outpatient (CLI) | payer MEDICARE ==
[2023-09-04 10:25] LABS: BASO % 0.5 % (0.0-1.0); EOS # 0.6 10^3/uL (0.0-0.5); EOS % 7.7 % (0.0-3.0); HEMATOCRIT 48.8 % (36.0-47.0); HEMOGLOBIN 15.8 g/dl (12.0-15.5); LYMPH # 2.5 10^3/uL (1.5-5.0); LYMPH % 30.4 % (24.0-44.0); MEAN CORPUSCULAR HEMOGLOBIN 31.1 pg (27.0-33.0); MEAN CORPUSCULAR HGB CONC 32.4 g/dl (32.0-36.5); MEAN CORPUSCULAR VOLUME 96.1 fl (80.0-96.0); MONO # 0.8 10^3/uL (0.0-0.8); MONO % 9.2 % (2.0-8.0); NEUTROPHILS # 4.3 10^3/uL (1.5-8.5); PLATELET COUNT, AUTOMATED 245 10^3/uL (150-450); RED BLOOD COUNT 5.08 10^6/uL (4.00-5.40); WHITE BLOOD COUNT 8.3 10^3/uL (4.0-10.0)
[2023-09-04 10:55] LABS: FERRITIN 776.9 NG/ML (7.3-270.7); FREE T4 1.37 NG/DL (0.89-1.76)
[2023-09-04 10:56] LABS: CREATININE, URINE 118.2 MG/DL; TOTAL 25(OH) VITAMIN D 44.3 NG/ML (20.0-100.0)
[2023-09-04 10:57] LABS: MAU/CREAT RATIO 6.7 MCG/MG (0.0-30.0); VITAMIN B12 LEVEL 810 PG/ML (211-911)
[2023-09-04 11:00] LABS: ALBUMIN 3.7 G/DL (3.2-5.2); ALKALINE PHOSPHATASE 145 U/L (46-116); ALT/SGPT 207 U/L (7.0-40); AST/SGOT 135 U/L (<34); BILIRUBIN,TOTAL 0.7 MG/DL (0.3-1.2); BLOOD UREA NITROGEN 21 MG/DL (9-23); CALCIUM LEVEL 9.2 MG/DL (8.5-10.1); CARBON DIOXIDE LEVEL 26 MMOL/L (20-31); CHLORIDE LEVEL 110 MMOL/L (98-107); CHOLESTEROL LEVEL 178 MG/DL (<200); CHOLESTEROL RISK RATIO 5.39 (<5); CREATININE FOR GFR 0.71 MG/DL (0.55-1.30); GLOMERULAR FILTRATION RATE > 60.0 (>51); GLUCOSE, FASTING 78 MG/DL (60-100); IRON (FE) 101 UG/DL (50-170); LDL CHOLESTEROL 100.6 MG/DL (<100); POTASSIUM SERUM 4.2 MMOL/L (3.5-5.1); SODIUM LEVEL 143 MMOL/L (136-145); TOTAL PROTEIN 6.6 G/DL (5.7-8.2); TRIGLYCERIDES LEVEL 222 MG/DL (<150)
== END ==
LOC: M WUC 08:06
PROVIDERS: ATTEND Internal Medicine Hematology
DX: D50.9 Iron deficiency anemia, unspecified (principal); E11.9 Type 2 diabetes mellitus without complications

== ENCOUNTER → 2023-09-10 | Outpatient (CLI) | payer MEDICARE | LOC: M LAB 08:36 | PROVIDERS: ATTEND Internal Medicine | DX: E27.40 Unspecified adrenocortical insufficiency (principal) ==

== ENCOUNTER → 2023-10-08 | Outpatient (CLI) | payer MEDICARE ==
[2023-10-08 16:00] LABS: ALBUMIN 3.7 G/DL (3.2-5.2); ALKALINE PHOSPHATASE 141 U/L (46-116); ALT/SGPT 88 U/L (7.0-40); AST/SGOT 57 U/L (<34); BILIRUBIN,DIRECT 0.1 MG/DL (<0.4); BILIRUBIN,TOTAL 0.5 MG/DL (0.3-1.2); BLOOD UREA NITROGEN 17 MG/DL (9-23); CALCIUM LEVEL 9.4 MG/DL (8.5-10.1); CARBON DIOXIDE LEVEL 28 MMOL/L (20-31); CHLORIDE LEVEL 110 MMOL/L (98-107); CREATININE FOR GFR 0.79 MG/DL (0.55-1.30); GLOMERULAR FILTRATION RATE > 60.0 (>51); GLUCOSE, FASTING 100 MG/DL (60-100); POTASSIUM SERUM 4.1 MMOL/L (3.5-5.1); SODIUM LEVEL 140 MMOL/L (136-145)
== END ==
LOC: M LAB 14:23 → M PLALAB 14:23
PROVIDERS: ATTEND Internal Medicine Hematology
DX: R74.8 Abnormal levels of other serum enzymes (principal); E24.0 Pituitary-dependent Cushing's disease

== ENCOUNTER → 2023-10-08 | Outpatient (CLI) | payer MEDICARE | LOC: M LAB 14:52 | PROVIDERS: ATTEND Internal Medicine Hematology | DX: R74.8 Abnormal levels of other serum enzymes (principal); E24.0 Pituitary-dependent Cushing's disease ==

== ENCOUNTER → 2023-12-19 | Outpatient (CLI) | payer MEDICARE ==
[~2023-12-19] MED LIST changes: +GABA-1172 PO; -GABA-282 PO
[2023-12-19 11:18] LABS: C REACTIVE PROTEIN QUANTITATIV < 0.40 MG/DL (<1.0)
[2023-12-19 11:20] LABS: ALKALINE PHOSPHATASE 89 U/L (35-104); ALT/SGPT 58 U/L (7.0-40); AST/SGOT 20 U/L (<34); BILIRUBIN,TOTAL 0.6 MG/DL (0.3-1.2); BLOOD UREA NITROGEN 25 MG/DL (9-23); CALCIUM LEVEL 10.1 MG/DL (8.5-10.1); CARBON DIOXIDE LEVEL 28 MMOL/L (20-31); CHLORIDE LEVEL 108 MMOL/L (98-107); CHOLESTEROL LEVEL 220 MG/DL (<200); CHOLESTEROL RISK RATIO 4.33 (<5); CREATININE FOR GFR 0.72 MG/DL (0.55-1.30); GLOMERULAR FILTRATION RATE > 60.0 (>51); GLUCOSE, FASTING 67 MG/DL (60-100); HDL CHOLESTEROL 50.7 MG/DL (>40); LDL CHOLESTEROL 130.1 MG/DL (<100); NON-HDL-C 169.3 MG/DL; POTASSIUM SERUM 3.7 MMOL/L (3.5-5.1); SODIUM LEVEL 144 MMOL/L (136-145); THYROID STIMULATING HORMONE 0.672 uIU/ML (0.55-4.78); TOTAL 25(OH) VITAMIN D 27.4 NG/ML (20.0-100.0); TOTAL PROTEIN 7.3 G/DL (5.7-8.2); TRIGLYCERIDES LEVEL 196 MG/DL (<150)
[2023-12-19 11:21] LABS: BASO % 0.4 % (0.0-1.0); EOS # 0.4 10^3/uL (0.0-0.5); EOS % 4.4 % (0.0-3.0); HEMATOCRIT 52.5 % (36.0-47.0); HEMOGLOBIN 16.5 g/dl (12.0-15.5); LYMPH # 3.7 10^3/uL (1.5-5.0); LYMPH % 36.8 % (24.0-44.0); MEAN CORPUSCULAR HEMOGLOBIN 31.1 pg (27.0-33.0); MEAN CORPUSCULAR HGB CONC 31.4 g/dl (32.0-36.5); MEAN CORPUSCULAR VOLUME 98.9 fl (80.0-96.0); MONO # 0.8 10^3/uL (0.0-0.8); NEUTROPHILS % 49.9 % (36.0-66.0); PLATELET COUNT, AUTOMATED 253 10^3/uL (150-450); RED BLOOD COUNT 5.31 10^6/uL (4.00-5.40); WHITE BLOOD COUNT 9.9 10^3/uL (4.0-10.0)
[2023-12-19 11:22] LABS: FREE T4 1.71 NG/DL (0.89-1.76); VITAMIN B12 LEVEL 613 PG/ML (211-911)
[2023-12-19 11:32] LABS: HEMOGLOBIN A1c 5.2 % (4.0-6.0)
[2023-12-19 11:41] LABS: CREATININE, URINE 136.5 MG/DL; MAU/CREAT RATIO 10.2 MCG/MG (0.0-30.0)
== END ==
LOC: M WUC 08:03
PROVIDERS: ATTEND Internal Medicine Hematology
DX: E11.9 Type 2 diabetes mellitus without complications (principal)

== ENCOUNTER → 2023-12-19 | Outpatient (CLI) | payer MEDICARE ==
[2023-12-19 11:16] LABS: BLOOD UREA NITROGEN 24 MG/DL (9-23); CREATININE FOR GFR 0.74 MG/DL (0.55-1.30); GLOMERULAR FILTRATION RATE > 60.0 (>51)
== END ==
LOC: M WUC 08:06
PROVIDERS: ATTEND Surgery
DX: K43.9 Ventral hernia without obstruction or gangrene (principal)

== ENCOUNTER → 2023-12-23 | Outpatient (CLI) | payer MEDICARE ==
[~2023-12-23] MED LIST changes: +GASTROGRAFIN SOLUTION 30ML As Ordered ONE; +ISOVUE-370 76% 100ML VIAL As Ordered ONE
== END ==
LOC: M RAD 07:49
PROVIDERS: ATTEND Surgery
DX: K43.9 Ventral hernia without obstruction or gangrene (principal)
CPT/HCPCS: 74177; Q9963; Q9967

== ENCOUNTER → 2024-01-26 | Outpatient (CLI) | payer MEDICARE ==
[~2024-01-26] MED LIST changes: -GASTROGRAFIN SOLUTION 30ML As Ordered ONE; -ISOVUE-370 76% 100ML VIAL As Ordered ONE; +NYST1POW3 TOP; -NYST1POW9 TOP; +ROSU20TA86 PO
== END ==
LOC: M WHC 06:52
PROVIDERS: ATTEND Family Medicine
DX: K76.89 Other specified diseases of liver (principal); N28.1 Cyst of kidney, acquired; K76.0 Fatty (change of) liver, not elsewhere classified

== ENCOUNTER → 2024-04-20 | Outpatient (CLI) | payer MEDICARE, OTHER ==
[~2024-04-20] MED LIST changes: +CARI-555 PO; -CARI1TAB7 PO; +RA T500C2 PO
== END ==
LOC: M LAB 07:54
PROVIDERS: ATTEND Internal Medicine
DX: E27.40 Unspecified adrenocortical insufficiency (principal)

== ENCOUNTER 2024-04-22 07:46 | Day surgery (SDC) | payer MEDICARE, OTHER ==
[~2024-04-22] VITALS: Ht 152.4 cm; Wt 70.8 kg
[2024-04-22] MEDS ORDERED: LIDOCAINE 2% 100MG/5ML SDV (FOR ANES.) As Ordered ONE (08:12)
[2024-04-22] MEDS ORDERED: propofoL 200 MG/20 ML VIAL As Ordered ONE (08:12)
[2024-04-22] MEDS ORDERED: ONDANSETRON 4MG 2ML VIAL As Ordered ONE (09:01)
[2024-04-22] MEDS ORDERED: ePHEDrine SULFATE 25 MG/5 ML(5MG/ML) SYRINGE As Ordered ONE (09:39)
[2024-04-22 09:49] VITALS: TEMP 97.8
[2024-04-22 10:03] VITALS: BP 113/79; O2SAT 98
== END 2024-04-22 10:07 | disposition home or self-care (01) ==
LOC: M OPP 07:46
PROVIDERS: ATTEND Surgery
DX: D12.6 Benign neoplasm of colon, unspecified (principal); Z86.0100 Personal history of colon polyps, unspecified; Z88.2 Allergy status to sulfonamides; Z88.8 Allergy status to other drugs, medicaments and biological substances; Z79.85 Long-term (current) use of injectable non-insulin antidiabetic drugs; E78.5 Hyperlipidemia, unspecified; E11.9 Type 2 diabetes mellitus without complications; F32.A Depression, unspecified
CPT/HCPCS: 45385; 88305; J2405

== ENCOUNTER → 2024-05-06 | Outpatient (CLI) | payer MEDICARE, OTHER ==
[~2024-05-06] MED LIST changes: +APPLTAB2 PO; +ASHW500C PO; +BUSP10TA PO; +NEOM10OI OU; +TOBRSUS8 OU; +WELLTAB38 PO
[2024-05-06 09:17] LABS: BASO % 0.5 % (0.0-1.0); EOS # 0.5 10^3/uL (0.0-0.5); EOS % 6.9 % (0.0-3.0); HEMATOCRIT 50.5 % (36.0-47.0); HEMOGLOBIN 16.4 g/dl (12.0-15.5); LYMPH # 2.3 10^3/uL (1.5-5.0); MEAN CORPUSCULAR HEMOGLOBIN 30.9 pg (27.0-33.0); MEAN CORPUSCULAR HGB CONC 32.5 g/dl (32.0-36.5); MEAN CORPUSCULAR VOLUME 95.1 fl (80.0-96.0); MONO # 0.6 10^3/uL (0.0-0.8); MONO % 7.4 % (2.0-8.0); NEUTROPHILS % 53.8 % (36.0-66.0); PLATELET COUNT, AUTOMATED 216 10^3/uL (150-450); RED BLOOD COUNT 5.31 10^6/uL (4.00-5.40); WHITE BLOOD COUNT 7.4 10^3/uL (4.0-10.0)
[2024-05-06 09:41] LABS: ALBUMIN 3.8 G/DL (3.2-5.2); ALKALINE PHOSPHATASE 83 U/L (35-104); ALT/SGPT 32 U/L (7.0-40); AST/SGOT 21 U/L (<34); BILIRUBIN,TOTAL 0.5 MG/DL (0.3-1.2); BLOOD UREA NITROGEN 19 MG/DL (9-23); CALCIUM LEVEL 9.6 MG/DL (8.5-10.1); CARBON DIOXIDE LEVEL 28 MMOL/L (20-31); CHLORIDE LEVEL 108 MMOL/L (98-107); CREATININE FOR GFR 0.75 MG/DL (0.55-1.30); GLOMERULAR FILTRATION RATE > 60.0 (>51); GLUCOSE, FASTING 79 MG/DL (60-100); POTASSIUM SERUM 4.5 MMOL/L (3.5-5.1); SODIUM LEVEL 147 MMOL/L (136-145); TOTAL PROTEIN 6.9 G/DL (5.7-8.2)
== END ==
LOC: M EKG 08:41
PROVIDERS: ATTEND Podiatrist
DX: Z01.818 Encounter for other preprocedural examination (principal)

== ENCOUNTER 2024-05-14 07:34 | Day surgery (SDC) | payer MEDICARE, OTHER ==
[~2024-05-14] VITALS: Ht 152.4 cm; Wt 71.8 kg
[2024-05-14] MEDS ORDERED: propofoL 500 MG/50 ML VIAL As Ordered ONE (08:06)
[2024-05-14] MEDS ORDERED: LIDOCAINE 2% 100MG/5ML SDV (FOR ANES.) As Ordered ONE (08:06)
[2024-05-14] MEDS ORDERED: fentaNYL 100 MCG/2 ML INJECTION As Ordered ONE (08:06)
[2024-05-14] MEDS ORDERED: MIDAZOLAM INJ 2MG/2ML VIAL As Ordered ONE (08:06)
[2024-05-14] MEDS: LR 1,000 ML IV SCH (08:38)
[2024-05-14] MEDS: ceFAZolin SOD 2 GM IV ONCE IV ONE (10:11)
[2024-05-14] MEDS: LIDOCAINE 2% MDV 20ML VIAL As Ordered ONE (10:24)
[2024-05-14] MEDS ORDERED: PHENYLephrine 500MCG 5ML (100MCG/ML) SYRINGE As Ordered ONE (10:25)
[2024-05-14] MEDS ORDERED: ACETAMINOPHEN 1000MG/100ML IV BAG As Ordered ONE (10:28)
[2024-05-14] MEDS ORDERED: HYDROmorphone HCL 2MG/ML 1ML VIAL As Ordered ONE (10:41)
[2024-05-14] MEDS ORDERED: ePHEDrine SULFATE 25 MG/5 ML(5MG/ML) SYRINGE As Ordered ONE (10:55)
[2024-05-14] MEDS: GENTAMICIN SULF 80MG/2ML VIAL As Ordered ONE (10:57)
[2024-05-14] MEDS ORDERED: CALCIUM CHLORIDE 10% 1 GM/10 ML SYR As Ordered ONE (11:28)
[2024-05-14] MEDS ORDERED: propofoL 200 MG/20 ML VIAL As Ordered ONE (12:22)
[2024-05-14 13:14] VITALS: BP 131/79; TEMP 97.8; O2SAT 98
== END 2024-05-14 14:00 | disposition home or self-care (01) ==
LOC: M SDC 07:34
PROVIDERS: ATTEND Podiatrist
DX: M20.11 Hallux valgus (acquired), right foot (principal); M20.41 Other hammer toe(s) (acquired), right foot; E11.9 Type 2 diabetes mellitus without complications; Z79.899 Other long term (current) drug therapy
CPT/HCPCS: 28285; 28297; 28308; 73630; 76000; 88300; C1713; J0131; J0665; J0690; J1100; J1171; J1580; J2250; J2371; J3010

== ENCOUNTER → 2024-10-04 | Outpatient (CLI) | payer MEDICARE, OTHER ==
[~2024-10-04] MED LIST changes: +AMOX875T2 PO; +BUPR-670 PO; -BUPR1TAB52 PO; +BUSP15TA47 PO; +HYDR12.510 PO; -HYDR12CA PO; +LISI40TA10 PO; -LISI40TA4 PO; -PREG50CA PO; +PREG50CA87 PO; +PROHANCE 279.3MG/ML 5ML VIAL ONE; -RA T500C2 PO; +SEMA1PEN2; +SEMA2PEN SQ; +TURM500C10 PO
== END ==
LOC: M PLAIMG 12:30
PROVIDERS: ATTEND Neurological Surgery
DX: D35.2 Benign neoplasm of pituitary gland (principal); Z92.3 Personal history of irradiation
CPT/HCPCS: 70553; A9576

== ENCOUNTER 2024-10-14 06:38 | Day surgery (SDC) | payer MEDICARE, OTHER ==
[~2024-10-14] VITALS: Ht 152.4 cm; Wt 68.6 kg
[~2024-10-14 06:38] MED LIST changes: -EZET10TA21 PO; +EZET10TA57 PO; -PROHANCE 279.3MG/ML 5ML VIAL ONE
[2024-10-14] MEDS ORDERED: SIMETHICONE 40MG/0.6ML DROPS 30ML As Ordered ONE (06:47)
[2024-10-14] MEDS ORDERED: LIDOCAINE 2% 100 MG/5 ML SDV (FOR ANES.) As Ordered ONE (07:11)
[2024-10-14 08:20] VITALS: BP 123/56; TEMP 97.8; O2SAT 96
== END 2024-10-14 08:30 | disposition home or self-care (01) ==
LOC: M OPP 06:38
PROVIDERS: ATTEND Surgery
DX: Z12.11 Encounter for screening for malignant neoplasm of colon (principal); Z86.0100 Personal history of colon polyps, unspecified; Z88.2 Allergy status to sulfonamides; Z88.8 Allergy status to other drugs, medicaments and biological substances; Z79.2 Long term (current) use of antibiotics; Z79.85 Long-term (current) use of injectable non-insulin antidiabetic drugs; Z79.899 Other long term (current) drug therapy

== ENCOUNTER → 2024-10-25 | Outpatient (CLI) | payer MEDICARE, OTHER ==
[~2024-10-25] MED LIST changes: +EZET10TA21 PO; -EZET10TA57 PO
[2024-10-25 18:45] LABS: ESTIMATED AVERAGE GLUCOSE 105.0 MG/DL (60-110)
== END ==
LOC: M WUC 15:33
PROVIDERS: ATTEND Family Medicine
DX: E23.2 Diabetes insipidus (principal); E11.9 Type 2 diabetes mellitus without complications; Z79.899 Other long term (current) drug therapy